=== PATIENT | male | born 1960 | race Caucasian/White ===

== ENCOUNTER 2023-02-14 09:54 | Outpatient (OUT) | payer OTHER, SELFPAY ==
[2023-02-14 10:24] LABS: Basophils Percent Auto 0.5 % (0.2-2.0); Eosinophils Absolute Auto 0.2 10^3/uL (0.0-0.7); Eosinophils Percent Auto 3.4 % (0.9-7.0); Hematocrit 40.6 % (42.0-54.0); Hemoglobin 13.1 g/dL (14.0-18.0); Immature Granulocytes Abs Auto 0.01 10^3/uL (0.00-0.03); Immature Granulocytes Pct Auto 0.2 % (0.0-0.5); Mean Corpuscular HGB Conc 32.3 g/dL (29.9-35.2); Mean Corpuscular Volume 83.7 fL (80.0-94.0); Mean Platelet Volume 9.3 fL (9.5-13.5); Monocytes Absolute Auto 0.3 10^3/uL (0.3-0.8); Monocytes Percent Auto 7.7 % (1.7-12.0); Neutrophils Absolute Auto 2.9 10^3/uL (1.4-6.5); Neutrophils Percent Auto 65.2 % (43.0-75.0); Platelet Count 179 10^3/uL (150-450); Red Blood Count 4.85 10^6/uL (4.70-6.10); Red Cell Distribution Width 15.8 % (11.0-15.0); White Blood Count 4.4 10^3/uL (4.0-11.0)
[2023-02-14 10:41] LABS: Estimated Average Glucose 105 mg/dL; Glycohemoglobin A1C 5.3 % (4.5-6.2)
[2023-02-14 10:56] LABS: Alanine Aminotransferase 25 U/L (16-63); Albumin Level 3.5 g/dL (3.4-5.0); Alkaline Phosphatase 83 U/L (46-116); Anion Gap 8.7; Aspartate Amino Transferase 18 U/L (15-37); BUN Creatinine Ratio 21.2; Bilirubin Total 0.5 mg/dL (0.2-1.0); Calcium 8.5 mg/dL (8.5-10.1); Carbon Dioxide 30.5 mmol/L (21.0-32.0); Chloride 106 mmol/L (98-107); Chol HDL Ratio 2.1; Cholesterol 119 mg/dL (<=200); Estimated GFR (African America >60 (>=60); Estimated GFR (Non-African Ame >60 (>=60); Globulin 3.4 g/dL; Glucose 115 mg/dL (74-106); HDL Cholesterol 57 mg/dL (40-60); LDL Cholesterol Calculated 50.6 mg/dL; Potassium 4.2 mmol/L (3.5-5.1); Sodium 141 mmol/L (136-145); Total Protein 6.9 g/dL (6.4-8.2); Triglycerides 57 mg/dL (<=150); VLDL CHOLESTEROL 11.4 mg/dL
[2023-02-14 11:13] LABS: Prostate Specific Antigen Scrn 1.26 ng/mL (<=4.00)
== END 2023-02-14 09:55 | disposition home or self-care (01) ==
PROVIDERS: PCP Family Medicine; Visit Provider Family Medicine
DX: Z00.00 Encounter for general adult medical examination without abnormal findings (principal); D64.9 Anemia, unspecified; Z79.899 Other long term (current) drug therapy; E11.9 Type 2 diabetes mellitus without complications; Z12.5 Encounter for screening for malignant neoplasm of prostate
CPT/HCPCS: 36415; 80053; 80061; 83036; 85025; G0103

== ENCOUNTER 2024-04-01 07:43 | Outpatient (OUT) | payer OTHER, SELFPAY ==
[2024-04-01 08:36] LABS: Estimated Average Glucose 114 mg/dL; Glycohemoglobin A1C 5.6 % (4.5-6.2)
[2024-04-01 08:50] LABS: Alanine Aminotransferase 34 U/L (16-63); Albumin Level 3.3 g/dL (3.4-5.0); Alkaline Phosphatase 74 U/L (46-116); Anion Gap 10.2; Aspartate Amino Transferase 19 U/L (15-37); Bilirubin Total 0.5 mg/dL (0.2-1.0); Calcium 8.6 mg/dL (8.5-10.1); Carbon Dioxide 30.9 mmol/L (21.0-32.0); Chloride 107 mmol/L (98-107); Chol HDL Ratio 2.1; Cholesterol 106 mg/dL (<=200); Estimated GFR (African America >60 (>=60 mL/min/1.73m^2); Estimated GFR (Non-African Ame >60 (>=60 mL/min/1.73m^2); Free T3 1.59 pg/mL (2.18-3.98); Globulin 3.2 g/dL; Glucose 120 mg/dL (74-106); HDL Cholesterol 51 mg/dL (40-60); LDL Cholesterol Calculated 42.6 mg/dL; Potassium 4.1 mmol/L (3.5-5.1); Sodium 144 mmol/L (136-145); Thyroid Stimulating Hormone 2.645 uIU/mL (0.358-3.740); Total Protein 6.5 g/dL (6.4-8.2); Triglycerides 62 mg/dL (<=150); VLDL CHOLESTEROL 12.4 mg/dL
[2024-04-01 08:55] LABS: Basophils Percent Auto 0.7 % (0.2-2.0); Eosinophils Absolute Auto 0.2 10^3/uL (0.0-0.7); Eosinophils Percent Auto 3.2 % (0.9-7.0); Hematocrit 40.9 % (42.0-54.0); Hemoglobin 13.5 g/dL (14.0-18.0); Immature Granulocytes Abs Auto 0.03 10^3/uL (0.00-0.03); Immature Granulocytes Pct Auto 0.5 % (0.0-0.5); Lymphocytes Absolute Auto 1.2 10^3/uL (1.2-3.8); Mean Corpuscular Hemoglobin 29.5 pg (25.9-34.0); Mean Corpuscular Volume 89.5 fL (80.0-94.0); Mean Platelet Volume 9.9 fL (9.5-13.5); Monocytes Absolute Auto 0.4 10^3/uL (0.3-0.8); Monocytes Percent Auto 6.9 % (1.7-12.0); Neutrophils Absolute Auto 4.1 10^3/uL (1.4-6.5); Neutrophils Percent Auto 68.7 % (43.0-75.0); Platelet Count 181 10^3/uL (150-450); Red Blood Count 4.57 10^6/uL (4.70-6.10); Red Cell Distribution Width 12.9 % (11.0-15.0)
[2024-04-01 08:57] LABS: Prostate Specific Antigen Scrn 1.27 ng/mL (<=4.00)
[2024-04-01 13:40] LABS: Internal Control Within Normal Limits; Occult Blood Positive
== END 2024-04-01 07:44 | disposition home or self-care (01) ==
LOC: LAB 07:44
PROVIDERS: PCP Family Medicine; Visit Provider Family Medicine
DX: Z00.00 Encounter for general adult medical examination without abnormal findings (principal); E03.9 Hypothyroidism, unspecified
CPT/HCPCS: 36415; 80053; 80061; 83036; 84436; 84443; 84481; 85025; G0103; G0328

== ENCOUNTER 2025-02-06 07:39 | Outpatient (OUT) | payer OTHER, SELFPAY ==
--- OUTSIDE RECORDS SUMMARY | 2025-02-06 07:43 | XMS_ITS | CCD ---
Author Organization [facility] Care Team Providers Care Mechanic Name Role Phone Kasia Alicea MD Primary Care Provider [phone] KASIA ALICEA Primary Care Unavailable COMFORT MCLAUGHLIN Attending Unavailable Kasia Alicea MD Primary Care Provider [phone] Kasia Alicea Primary Care Physician [phone] Tiffany Yoder Unavailable Unavailable Sheila Silver Unavailable Unavailable Jewel Nava Attending Unavailable Theodore Jacques Referring Unavailable Jonathan, Theodore Ray Admitting Unavailable Theodore Jacques Attending Unavailable NILLLisa Attending Unavailable Kasia Alicea Referring Unavailable NILLLisa Attending Unavailable NILLLisa Attending Unavailable Brown, Theodore A Referring Unavailable Brown, Theodore A Admitting Unavailable Brown, Theodore A Attending Unavailable Brown, Theodore A Admitting Unavailable Brown, Theodore A Attending Unavailable Brown, Theodore A Referring Unavailable Brown, Theodore A Referring Unavailable Brown, Theodore A Admitting Unavailable Brown, Theodore A Attending Unavailable HOY ., DR PEDROZA Primary Care Unavailable HOY ., DR PEDROZA Admitting Unavailable HOY ., DR PEDROZA Attending Unavailable HOY ., DR PEDROZA Consulting Unavailable ZIEBER, DR ROSAMARIA Pa Consulting Unavailable HOY ., DR PEDROZA Primary Care Unavailable NILL ., DR GONZALEZ Consulting Unavailable NILL ., DR GONZALEZ Admitting Unavailable NILL ., DR GONZALEZ Attending Unavailable HOY ., DR PEDROZA Primary Care Unavailable HOY ., DR PEDROZA Attending Unavailable HOY ., DR PEDROZA Admitting Unavailable HOY ., DR PEDROZA Consulting Unavailable ORI JACQUES Consulting Unavailable NIXON ., DR PEDROZA Primary Care Unavailable NILL ., DR GONZALEZ Consulting Unavailable NILL ., DR GONZALEZ Admitting Unavailable NILL ., DR GONZALEZ Attending Unavailable EDDIE BLANKENSHIP Consulting Unavailable JOLANTA ENGLISH Consulting Unavailable HOY ., DR PEDROZA Primary Care Unavailable HOY ., DR PEDROZA Admitting Unavailable HOY ., DR PEDROZA Attending Unavailable HOY ., DR PEDROZA Consulting Unavailable MAGALY SOTO Consulting Unavailable HOY ., DR PEDROZA Admitting Unavailable HOY ., DR PEDROZA Attending Unavailable HOY ., DR PEDROZA Primary Care Unavailable BRTITANY, MAGALY Admitting Unavailable BRITTANY, MAGALY Attending Unavailable MAGALY SOTO Consulting Unavailable HOY ., DR PEDROZA Primary Care Unavailable HOY ., DR PEDROZA Admitting Unavailable HOY ., DR PEDROZA Attending Unavailable HOY ., DR PEDROZA Consulting Unavailable HOY ., DR PEDROZA Primary Care Unavailable HOY ., DR PEDROZA Primary Care Unavailable HOY ., DR PEDROZA Admitting Unavailable HOY ., DR PEDROZA Attending Unavailable HOY ., DR PEDROZA Consulting Unavailable Kodyy Kasia ROSSI Primary Care Provider [phone] Medications Current Medications Medication Drug Class(es) Dates Sig (Normalized) Sig (Original) ALPRAZolam 0.25 mg oral tablet (2 sources) Benzodiazepine Start: 11-24-2022 take 1 tablet by mouth three times daily ALPRAZolam (Xanax) 0.25 MG tablet TAKE ONE TABLET BY MOUTH THREE TIMES A DAY FOR 4 DAYS 11/24/2022 Active aspirin 81 mg delayed release oral tablet (9 sources) Platelet Aggregation Inhibitor, Nonsteroidal Anti-inflammatory Drug Start: 09-10-2022 End: 10-10-2022 take 2 tablets by mouth once daily aspirin 81 mg Oral EC Tab 162 mg = 2 tab(s), Oral, Daily, X 30 day(s), # 60 tab(s), Refills(s) 0, Pharmacy: [facility]5, 174, cm, 08/26/22 11:25:00 EDT, Height/Length Dosing, 106.6, kg, 08/26/22 11:25:00 EDT, Weight Dosing Start Date: 09/10/22 Stop Date: 10/10/22 Status: Ordered Start: 08-26-2022 take 81 mg by mouth once daily aspirin 81 mg, Oral, Daily, Prophylaxis Start Date: 08/26/22 Status: Ordered Start: 05-28-2022 End: 06-27-2022 take 2 tablets by mouth once daily aspirin 81 mg Oral EC Tab 162 mg = 2 tab(s), Oral, Daily, X 30 day(s), # 60 tab(s), Refills(s) 0, [facility]acy: [facility], 177, cm, 05/06/22 12:05:00 EST, Height/Length Dosing, 106.9, kg, 05/06/22 12:05:00 EST, Weight Dosing Start Date: 05/28/22 Stop Date: 06/27/22 Status: Ordered Start: 05-06-2022 take 1 capsule by mo [facility] once daily aspirin 81 mg oral capsule 81 mg = 1 cap(s), Oral, Daily, Blood Thinner Start Date: 05/06/22 Status: Ordered aspirin 81 MG ch ewable tablet 1 (one) time each day at the same time. [facility] MG EC tablet Take 81 mg by mouth nightly 0 Active celecoxib 100 mg oral capsule (4 sources) Nonsteroidal Anti-inflammatory Drug Start: 09-10-2022 CeleBREX 100 MG capsule Take 100 mg by mouth. 09/10/2022 Active Start: 05-28-2022 take 1 capsule by mo [facility] twice daily as needed for pain CeleBREX 100 mg Cap 100 mg = 1 cap(s), Oral, BID, PRN for pain, # 60 cap(s), Refills(s) 0, [facility]acy: [facility], 177, cm, 05/06/22 12:05:00 EST, Height/Length Dosing, 106.9, kg, 05/06/22 12:05:00 EST, Weight Dosing Start Date: 05/28/22 Status: Ordered cephalexin 500 mg oral capsule (2 sources) Cephalosporin Antibacterial Start: 09-10-2022 End: 09-17-2022 take 1 capsule by mouth every eight hours Keflex 500 mg Cap 500 mg = 1 cap(s), Oral, q8hr, X 7 day(s), # 21 cap(s), Refills(s) 0, [facility], 174, cm, 08/26/22 11:25:00 EDT, Height/Length Dosing, 106.6, kg, 08/26/22 11:25:00 EDT, Weight Dosing Start Date: 09/10/22 Stop Date: 09/17/22 Status: Ordered Start: 05-28-2022 End: 06-04-2022 take 1 capsule by mouth every eight hours Keflex 500 mg Cap 500 mg = 1 cap(s), Oral, q8hr, X 7 day(s), # 21 cap(s), Refills(s) 0, Pharmacy: [facility] 1155, 177, cm, 05/06/22 12:05:00 EST, Height/Length Dosing, 106.9, kg, 05/06/22 12:05:00 EST, Weight Dosing Start Date: 05/28/22 Stop Date: 06/04/22 Status: Ordered chondroitin sulfates 400 mg / glucosamine sulfate 500 mg oral tablet (2 sources) take 1 tablet by mouth in the morning, then take 1 tablet by mouth in the evening, then take 1 tablet by mouth at bedtime glucosamine-chondroitin 500-400 MG tablet Take 1 tablet by mouth in the morning and 1 tablet in the evening and 1 tablet before bedtime. Active ciprofloxacin 500 mg oral tablet (2 sources) Quinolone Antimicrobial Start: 2022 take 1 tablet by mouth every twelve hours ciprofloxacin (Cipro) 500 MG tablet Take 500 mg by mouth every 12 (twelve) hours. 11/24/2022 Active citalopram 20 mg oral tablet (9 sources) Serotonin Reuptake Inhibitor Start: 2018 take 1 tablet by mouth once daily CeleXA 20 mg Tab 20 mg = 1 tab(s), Oral, Daily, Refills(s) 0, Anxiety Start Date: 03/21/19 Status: Ordered diclofenac sodium 75 mg delayed release oral tablet (5 sources) Nonsteroidal Anti-inflammatory Drug Start: 2022 take 1 tablet by mouth twice daily diclofenac sodium 75 mg Oral EC Tab 75 mg = 1 tab(s), Oral, BID, Refills(s) 0, Arthritis Start Date: 06/17/22 Status: Ordered diclofenac (Volt aren) 75 MG EC tablet every 12 (twelve) hours. Active take 75 mg by mouth at bedtime D iclofenac Sodium (VOLTAREN PO) Take 75 mg by mouth in the morning and at bedtime 0 Active docusate sodium 100 mg oral capsule (3 sources) Start: 09-10-2022 take 1 capsule by [facility] twice daily as needed for constipation Colace 100 mg Cap 100 mg = 1 cap(s), Oral, BID, PRN for constipation, # 20 cap(s), Refills(s) 0, Pharmacy: [facility], 174, cm, 08/26/22 11:25:00 EDT, Height/Length Dosing, 106.6, kg, 08/26/22 11:25:00 EDT, Weight Dosing Start Date: 09/10/22 Status: Ordered Start: 05-28-2022 take 1 capsule by mo [facility] twice daily as needed for constipation Colace 100 mg Cap 100 mg = 1 cap(s), Oral, BID, PRN for constipation, # 20 cap(s), Refills(s) 0, Pharmacy: [facility] 1155, 177, cm, 05/06/22 12:05:00 EST, Height/Length Dosing, 106.9, kg, 05/06/22 12:05:00 EST, Weight Dosing Start Date: 05/28/22 Status: Ordered glimepiride 2 mg oral tablet (6 sources) Sulfonylurea Start: 05-28-2022 glimepiride (Amaryl) 2 MG tablet 1 (one) time each day at the same time. 05/28/2022 Active glucosamine hydrochloride 1500 mg oral tablet (4 sources) Start: 03-24-2019 take 1 tablet by mouth twice daily glucosamine hydrochloride 1500 mg oral tablet 1,500 mg, 1 tab(s), Oral, BID, Refill(s) 0, Arthritis Start Date: 03/24/19 Status: Ordered Glucosamine-Chondroi t-Vit C-Mn (GLUCOSAMINE 1500 COMPLEX) CAPS (2 sources) Glucosamine-Miguel dacia it-Vit C-Mn (GLUCOSAMINE 1500 COMPLEX) CAPS Take 1,500 mg by mouth 2 times daily 0 Active hydrALAZINE hydrochloride 100 mg oral tablet (9 sources) Arteriolar Vasodilator Start: 05-06-2022 hydrALAZINE (Apresoline) 100 MG tablet 1 (one) time each day at the same time. 05/06/2022 Active Start: 05-06-2022 take 1 tablet by kimmy three times daily hydrALAZINE 100 mg oral tablet 100 mg = 1 tab(s), Oral, TID, High blood pressure Start Date: 05/06/22 Status: Ordered Start: 05-06-2022 take 1 tablet by kimmy twice daily hydrALAZINE 100 mg oral tablet 100 mg = 1 tab(s), Oral, BID, High blood pressure Start Date: 05/06/22 Status: Ordered take 1 tablet by kimmy th twice daily hydrALAZINE (APRESOLINE) 50 MG tablet Take 50 mg by mouth 2 times daily 0 Active ibuprofen 200 mg oral capsule (2 sources) Nonsteroidal Anti-inflammatory Drug take 1 capsule by mouth every six hours ibuprofen (ADVIL;MOTRIN) 200 MG CAPS Take 1 capsule by mouth every 6 hours 0 Active levoFLOXacin 500 mg oral tablet (1 source) Quinolone Antimicrobial Start: End: take 1 tablet by mouth once daily levoFLOXacin (LEVAQUIN) 500 MG tablet Take 1 tablet by mouth daily for 10 days 10 tablet 0 10/02/2020 10/12/2020 Active metFORMIN hydrochloride 500 mg oral tablet (7 sources) Biguanide Start: take 1 tablet by mouth twice daily metformin 500 mg Tab 500 mg = 1 tab(s), Oral, BID, Refills(s) 0, Blood glucose Start Date: 05/09/22 Status: Ordered Start: 05-09-2022 metFORMIN (Glu cophage) 500 MG tablet every 12 (twelve) hours. 05/09/2022 Active take 1 tablet by kimmy th twice daily at mealtime metFORMIN (GLUCOPHAGE) 500 MG tablet Take 500 mg by mouth 2 times daily (with meals) 0 Active Multi Vitamin+ (5 sources) Start: 03-24-2019 take 1 tablet by mouth once daily Multi Vitamin+ tab, Oral, Daily, Refill(s) 0, Prophylaxis Start Date: 03/24/19 Status: Ordered Multiple Vitamins-Minerals (MENS 50+ ADVANCED PO) (2 sources) take 1 tablet by mouth once daily in the morning Multiple Vitamins-Minerals (MENS 50+ ADVANCED PO) Take 1 tablet by mouth every morning 0 Active Multiple Vitamins-Minerals (Mens 50+ Advanced) capsule (2 sources) Multiple Vitamins-Minerals (Mens 50+ Advanced) capsule 1 capsule 1 (one) time each day at the same time Active [place] 3-6-9 Fatty Acids ([place] 3-6-9 Complex) capsule (2 sources) take 1 capsule by mouth every twelve hours [place] 3-6-9 Fatty Acids ([place] 3-6-9 Complex) capsule 1 capsule every 12 (twelve) hours Active ondansetron 4 mg oral tablet (4 sources) Serotonin-3 Receptor Antagonist Start: 05-29-2022 take 1 tablet by mouth every eight hours as needed for nausea Zofran ODT 4 mg Tab 4 mg = 1 tab(s), Oral, q8hr, PRN Nausea/Vomiting, # 30 tab(s), Refills(s) 0, Pharmacy: [facility] 1155, 177, cm, 05/06/22 12:05:00 EST, Height/Length Dosing, 107.4, kg, 05/29/22 6:31:00 EST, Weight Dosing Start Date: 05/29/22 Status: Ordered Start: 11-17-2021 End: 11-22-2021 take 1 tablet by mouth every eight hours as needed for nausea ondansetron (ZOFRAN) 4 MG tablet Take 1 tablet by mouth every 8 hours as needed for Nausea or Vomiting 12 tablet 0 11/17/2021 11/22/2021 Active Start: 11-17-2021 End: 11-17-2021 ondansetron (ZOFRAN) injecti on 4 mg ramipril 10 mg oral capsule (9 sources) Angiotensin Converting Enzyme Inhibitor Start: 03-21-2019 take 1 capsule by mouth twice daily Altace 10 mg Cap 10 mg = 1 cap(s), Oral, BID, Refills(s) 0, High blood pressure Start Date: 03/21/19 Status: Ordered take 1 capsule by mo [facility] every twelve hours ramipril (Altace) 10 MG capsule 1 capsul e every 12 (twelve) hours. Active simvastatin 20 mg oral tablet (7 sources) HMG-CoA Reductase Inhibitor Start: 05-09-2022 take 1 tablet by mouth once daily at bedtime simvastatin 20 mg Tab 20 mg = 1 tab(s), Oral, Once a day (at bedtime), Refills(s) 0, High cholesterol Start Date: 05/09/22 Status: Ordered 24 hr venlafaxine 150 mg extended release oral tablet (9 sources) Serotonin and Norepinephrine Reuptake Inhibitor Start: 08-26-2022 take 150 mg by mouth once daily venlafaxine 150 mg, Oral, Daily, Anxiety Start Date: 08/26/22 Status: Ordered Start: 05-29-2022 take 1 capsule by mo ut once daily venlafaxine 75 mg Cap-ER 75 mg = 1 cap(s), Oral, Daily, # 30 cap(s), Refills(s) 0, [facility]acy: [facility], 177, cm, 05/06/22 12:05:00 EST, Height/Length Dosing, 107.4, kg, 05/29/22 6:31:00 EST, Weight Dosing Start Date: 05/29/22 Status: Ordered Start: 03-21-2019 take 1 capsule by mo uth once daily Effexor XR 150 mg Cap-ER 150 mg = 1 cap(s), Oral, Daily, Refills(s) 0, Other (see comment) Start Date: 03/21/19 Status: Ordered take 2 capsules by m out once daily in the morning venlafaxine (EFFEXOR XR) 75 MG extended release capsule Take 150 mg by mouth every morning 0 Active Completed/Discontinued Medications Medication Drug Class(es) Dates Sig (Normalized) Sig (Original) acetaminophen 325 mg / oxyCODONE hydrochloride 5 mg oral tablet (3 sources) Opioid Agonist Start: 09-10-2022 Percocet 5 mg-325 mg oral tablet See Instructions, 40 tab(s), Refill(s) 0, 1-2 tab(s) Oral q4hr, [facility], 174, cm, 08/26/22 11:25:00 EDT, Height/Length Dosing, 106.6, kg, 08/26/22 11:25:00 EDT, Weight Dosing Start Date: 09/10/22 Status: Ordered Start: 05-28-2022 Percocet 5 mg- 325 mg oral tablet See Instructions, 50 tab(s), Refill(s) 0, 1-2 tab(s) Oral q4hr, [facility], 177, cm, 05/06/22 12:05:00 EST, Height/Length Dosing, 106.9, kg, 05/06/22 12:05:00 EST, Weight Dosing Start Date: 05/28/22 Status: Ordered atropine sulfate 0.025 mg / diphenoxylate hydrochloride 2.5 mg oral tablet (2 sources) Anticholinergic, Cholinergic Muscarinic Antagonist, Antidiarrheal Start: 11-17-2021 End: 11-17-2021 diphenoxylate-atropine (LOMOTIL) 2.5-0.025 MG per tablet 1 tablet Start: 11-17-2021 End: 11-22-2021 take 1 tablet by mouth three times daily as needed for diarrhea diphenoxylate-atropine (LOMOTIL) 2.5-0.025 MG per tablet Indications: Gastroenteritis , Acute renal insufficiency Take 1 tablet by mouth 3 times daily as needed for Diarrhea for up to 5 days. 15 tablet 0 11/17/2021 11/22/2021 Active cloNIDine hydrochloride 0.2 mg oral tablet (10 sources) Central alpha-2 Adrenergic Agonist Start: 08-26-2022 End: 09-11-2022 Catapres 0.2 mg Tab 0.2 mg = 1 tab(s), Tab, Oral, Start date 09/11/22 8:00:00 EDT, 09/10/22 13:19:00 EDT Start Date: 09/11/22 Stop Date: 09/11/22 Status: Completed Start: 05-29-2022 End: 05-29-2022 cloNIDine 0.1 mg tab 0.2 mg = 2 tab(s), Tab, Oral, Start date 05/29/22 9:00:00 EST, 05/28/22 9:39:00 EST Start Date: 05/29/22 Stop Date: 05/29/22 Status: Completed Start: 05-09-2022 take 2 tablets by [facility] twice daily cloNIDine 0.1 mg tab 0.2 mg = 2 tab(s), Oral, BID, Refills(s) 0, High blood pressure Start Date: 05/09/22 Status: Ordered cloNIDine (Catap res) 0.2 MG tablet every 8 (eight) hours. Active take 2 tablets by [facility] once daily cloNIDine (CATAPRES) 0.1 MG tablet Take 0.2 mg by mouth daily 0 Active take 1 tablet by mouth at bedtim e cloNIDine (CATAPRES) 0.1 MG tablet Take 0.1 mg by mouth at bedtime 0 Active famotidine (PEPCID) 20 mg in sodium chloride (PF) 10 mL injection (1 source) Start: 11-17-2021 End: 11-17-2021 famotidine (PEPCID) 20 mg in sodium chloride (PF) 10 mL injection fluconazole 150 mg oral tablet (2 sources) Azole Antifungal End: 06-05-2022 fluconazole (DIFLUCAN) 150 MG tablet Take 75 mg by mouth 2 times daily 0 11/17/2021 Discontinued (LIST CLEANUP) lisinopril 20 mg oral tablet (2 sources) Angiotensin Converting Enzyme Inhibitor Start: 09-11-2022 End: 09-11-2022 lisinopril 20 mg Tab 40 mg = 2 tab(s), Tab, Oral, Start date 09/11/22 9:00:00 EDT, 09/10/22 13:19:00 EDT Start Date: 09/11/22 Stop Date: 09/11/22 Status: Completed Start: 05-29-2022 End: 05-29-2022 lisinopril 20 mg Tab 40 mg = 2 tab(s), Tab, Oral, Start date 05/29/22 9:00:00 EST, 05/28/22 9:40:00 EST Start Date: 05/29/22 Stop Date: 05/29/22 Status: Completed 24 hr metoprolol succinate 50 mg extended release oral tablet (15 sources) beta-Adrenergic Keith Start: 09-11-2022 End: 09-11-2022 Toprol XL 50 mg Tab-ER 100 mg = 2 tab(s), Tab-ER, Oral, Start date 09/11/22 9:00:00 EDT, 09/10/22 13:19:00 EDT Start Date: 09/11/22 Stop Date: 09/11/22 Status: Completed Start: 09-10-2022 End: 09-10-2022 Toprol XL 50 mg Tab-ER 100 m g = 2 tab(s), Tab-ER, Oral, Start date 09/10/22 21:00:00 EDT, 09/10/22 13:19:00 EDT Start Date: 09/10/22 Stop Date: 09/10/22 Status: Completed Start: 05-29-2022 End: 05-29-2022 Toprol XL 50 mg Tab-ER 100 m g = 2 tab(s), Tab-ER, Oral, Start date 05/29/22 9:00:00 EST, 05/28/22 9:39:00 EST Start Date: 05/29/22 Stop Date: 05/29/22 Status: Completed Start: 03-21-2019 End: 05-28-2022 take 2 tablets by mouth twice daily Toprol XL 50 mg Tab-ER 100 mg = 2 tab(s), Oral, BID, Refills(s) 0, High blood pressure Start Date: 03/21/19 Status: Ordered Start: 03-21-2019 [facility] Toprol [facility] 50 mg Tab-ER 50 mg = 1 tab(s), Oral, BID, Refills(s) 0, High blood pressure Start Date: 03/21/19 Status: Ordered take 2 tablets by mo [facility] every twelve hours metoprolol succinate XL (Toprol XL) 50 MG 24 hr tablet 2 capsules every 12 (twelve) hours. Active take 2 tablets by mo [facility] once daily before breakfast metoprolol succinate (TOPROL XL) 50 MG extended release tablet Take 100 mg by mouth every morning (before breakfast) 0 Active take 1 tablet by mouth once kay y metoprolol succinate (TOPROL XL) 50 MG extended release tablet Take 50 mg by mouth nightly 0 Active Multiple Vitamin (multivitamin) tablet (2 sources) End: 03-01-2024 take 1 tablet by mouth in the morning Multiple Vitamin (multivitamin) tablet Take 1 tablet by mouth in the morning. 03/01/2024 Discontinued (Therapy completed) Sodium Chloride (2 sources) Start: 11-17-2021 End: 11-17-2021 0.9 % sodium chloride bolus Start: 11-17-2021 End: 11-17-2021 0.9 % sodium chloride bolus Problems Active Problems Problem Classification Problem Date Documented Date Episodic/Chronic Acute cerebrovascular disease (5 sources) Cerebrovascular accident 05-06-2022 Chronic Anxiety disorders (10 sources) Anxiety; Translations: [Anxiety disorder] Onset: 05-28-2022 05-06-2022 Chronic Cataract (4 sources) Cataract 05-09-2022 Chronic Congestive heart failure; nonhypertensive (1 source) Unspecified diastolic (congestive) heart failure; Translations: [UNSPECIFIED DIASTOLIC HEART FAILURE] Onset: 12-10-2021 Chronic Diabetes mellitus without complication (4 sources) Diabetes mellitus 05-09-2022 Chronic Diabetes mellitus without complication (6 sources) Prediabetes; Translations: [Prediabetes] Onset: 07-18-2022 05-06-2022 Episodic Essential hypertension (6 sources) Hypertensive disorder; Translations: [Essential (primary) hypertension] Onset: 07-18-2022 01-28-2019 Chronic Genitourinary symptoms and ill-defined conditions (20 sources) Dysuria; Translations: [Increased frequency of urination] Onset: 07-18-2022 05-06-2022 Episodic Heart valve disorders (1 source) Nonrheumatic aortic (valve) insufficiency; Translations: [NONRHEUMATIC AORTIC INSUFFICIENCY] Onset: 12-12-2021 Chronic Hyperplasia of prostate (11 sources) Benign prostatic hypertrophy with outflow obstruction; Translations: [Benign prostatic hypertrophy without outflow obstruction] Onset: 05-28-2022 05-06-2022 Chronic Hypertension with complications and secondary hypertension (1 source) Hypertensive heart disease with heart failure; Translations: [HTN HEART DISEASE W/HEART FAIL] Onset: 12-10-2021 Chronic Mood disorders (1 source) Depressive disorder; Translations: [Depression, unspecified] Onset: 05-28-2022 Chronic Noninfectious gastroenteritis (1 source) Gastroenteritis; Translations: [Noninfective gastroenteritis and colitis, unspecified] Episodic Osteoarthritis (2 sources) Osteoarthritis of knee; Translations: [Unilateral primary osteoarthritis, left knee] Onset: 05-28-2022 Chronic Other aftercare (1 source) [employer] (current) use of aspirin; Translations: [HALF-WAY CURRENT USE OF ASPIRIN] Onset: 07-18-2022 Episodic Other aftercare (1 source) [facility] (current) use of oral hypoglycemic drugs; Translations: [HALF-WAY USE ORAL HYPOGLYCEMIC DX] Onset: 07-18-2022 Episodic Other circulatory disease (2 sources) History of transient ischemic attack 05-09-2022 Episodic Other circulatory disease (1 source) Personal history of transient ischemic attack (TIA), and cerebral infarction without residual deficits; Translations: [PERS HX TIA AND CI NO RESID DEFICIT] Onset: 07-18-2022 Episodic Other diseases of kidney and ureters (1 source) Acute renal insufficiency; Translations: [Disorder of kidney and ureter, unspecified] Episodic Other non-epithelial cancer of skin (4 sources) Basal cell carcinoma of face 05-09-2022 Episodic Other nutritional; endocrine; and metabolic disorders (3 sources) Body mass index 30+ - obesity 06-17-2022 Chronic Other screening for suspected conditions (not mental disorders or infectious disease) (15 sources) Raised prostate specific antigen; Translations: [Hypotestosteronism] Onset: 03-01-2022 05-06-2022 Episodic Pneumonia (except that caused by tuberculosis or sexually transmitted disease) (1 source) Infective pneumonia; Translations: [Pneumonia, unspecified organism] Episodic Residual codes; unclassified (5 sources) H/O: anticoagulant therapy 01-28-2019 Episodic Residual codes; unclassified (1 source) Procedure carried out on subject; Translations: [Encounter for prophylactic measures, unspecified] Onset: 05-28-2022 Episodic Residual codes; unclassified (4 sources) Edema of lower extremity 05-09-2022 Episodic Residual codes; unclassified (4 sources) Localized edema; Translations: [LOCALIZED EDEMA] Onset: 10-07-2022 Episodic Retinal detachments; defects; vascular occlusion; and retinopathy (8 sources) Degenerative disorder of macula ; Translations: [Hypertensive retinopathy] 05-09-2022 Chronic Spondylosis; intervertebral disc disorders; other back problems (4 sources) Sciatica 05-09-2022 Episodic Unclassified (1 source) History of COVID-19; Translations: [History of COVID-19] Unclassified (3 sources) Patient encounter status 06-17-2022 Unclassified (1 source) CONTACT W/AND (SUSP) EXPOS COVID-19; Translations: [CONTACT W/AND (SUSP) EXPOS COVID-19] Onset: 07-14-2022 Urinary tract infections (4 sources) Chronic cystitis 05-09-2022 Chronic Urinary tract infections (6 sources) Acute cystitis; Translations: [Acute cystitis with hematuria] Episodic Past or Other Problems Problem Classification Problem Date Documented Date Episodic/Chronic Abdominal pain (4 sources) Unspecified abdominal pain; Translations: [UNSPECIFIED ABDOMINAL PAIN] Onset: 11-21-2021 Episodic Acute and unspecified renal failure (1 source) Acute kidney failure, unspecified; Translations: [ACUTE KIDNEY FAILURE UNSPECIFIED] Onset: 11-25-2021 Episodic Nausea and vomiting (1 source) Vomiting, unspecified; Translations: [VOMITING UNSPECIFIED] Onset: 11-25-2021 Episodic Other circulatory disease (1 source) Hypotension, unspecified; Translations: [HYPOTENSION UNSPECIFIED] Onset: 12-12-2021 Episodic Other connective tissue disease (1 source) Synovial cyst of popliteal space [Wang], left knee; Translations: [SYNOVIAL CYST POP SPACE LEFT KNEE] Onset: 06-11-2022 Episodic Other connective tissue disease (5 sources) Other specified soft tissue disorders; Translations: [OTHER SPEC SOFT TISSUE DISORDERS] Onset: 12-05-2021 Episodic Other non-traumatic joint disorders (2 sources) Pain in right knee; Translations: [Pain in joint, lower leg] 03-01-2024 Episodic Residual codes; unclassified (1 source) Other specified postprocedural states; Translations: [OTH SPECIFIED POSTPROCEDURAL STATES] Onset: 06-11-2022 Episodic Residual codes; unclassified (4 sources) Edema, unspecified; Translations: [EDEMA UNSPECIFIED] Onset: 12-09-2021 Episodic Results Test Name Value Interpretation Reference Range Facil ity XR Knee - left 3 [facility] Result: Three views, bilateral PA weight-bearing/sunr ise/lateral bilateral knee, taken today and saved to the permanent medical record are reviewed. Prosthesis is unchanged in position and alignment. No signs of prosthetic wear or loosening. No periprosthetic fractures. [facility] SeptRx XR Knee - right 3 [facility] Result: Three views, bilateral PA weight-bearing/sunr ise/lateral bilateral knee, taken today and saved to the permanent medical record are reviewed. Prosthesis is unchanged in position and alignment. No signs of prosthetic wear or loosening. No periprosthetic fractures. [facility] No Panel Informationon 03-01 Radiology Study observation (narrative) [facility] US JUHI DOP LEG RTon 10-08-19 US JUHI DOP LEG RT Ultrasound venous duplex scan right lower extremity CLINICAL: Swelling of the right leg] and rash behind the knee. TECHNIQUE: Ziegler-scale, color-flow, and Spectral Doppler examination of the right lower extremity were performed with and without provocative maneuvers. FINDINGS: Sonographic examination of the right lower extremity deep venous system to include the common femoral, superficial femoral and popliteal veins, demonstrates normal compressibility, color-flow, respiratory variation, and augmentation. The origin and proximal segment of the greater saphenous vein also demonstrates normal compression and color-flow. There is normal color-flow in the peroneal, posterior tibial, and anterior tibial veins. IMPRESSION: 1. No deep venous thrombosis of the right lower extremity. 2. There is evidence of edema in the soft tissues of the calf and ankle. Electronically authenticated by: ORI JACQUES Date: 2022-10-07 12:51 Normal [facility] IntraOperative Documentson 0 09-15-2022 IntraOperative Documents [id number] Normal [facility] Operative Reporton 3 Operative Report Patient: IRWIN MOORE Age: 62 years Sex: Male : 1960 Associated Diagnoses: None Author: Ag Choi Jr, DO Postoperative Information Date/ Time: 09/10/2022 11:50:00 Preoperative Diagnosis: Acute postoperative pain.. Postoperative Diagnosis: Acute postoperative pain. Procedure: adductor canal nerve block per surgeon request for post-op pain management. Anesthesia Method: Local, Monitored anesthesia care. Performed by: Ag Choi Jr, DO. Medications: Midazolam 2mg. Complications: None. Notes: The patient was interviewed and examined prior to the planned operation. Anesthesia options were discussed including adductor canal nerve block for postoperative analgesia. This discussion included a description of the procedure, risks and benefits, as well as alternatives to the block. The patients questions were addressed and the patient elected to proceed with the adductor canal nerve block. The patient was placed in the supine position and monitored with continuous pulse oximetry, non-invasive blood pressure, and electrocardiography . The upper thigh was prepped with ChloraPrep and sterilely draped. Anatomical landmarks were identified with ultrasonographic guidance. A 2 x 22 gauge Stimuplex needle was inserted without pain or paresthesias. . Following a negative attempted aspiration for blood, Ropivacaine 0.5% was slowly injected with to a total volume of _20_ cc. Periodic negative attempts at aspiration for blood were made as the local was injected. No pain or paresthesias were elicited with injection of the anesthetic. The patient tolerated the procedure well. The patient was then induced for general anesthesia and preparations for the proposed operation continued.. Normal [facility] Comment on above: Result Comment: Elec tronically Signed By: Ag Choi Jr, DO\.br\Date and Time Signed: 09/13/22 09:10 EDT Progress Note-Physicianon Progress Note-Physician Patient: IRWIN MOORE Age: 62 years Sex: Male : 1960 Associated Diagnoses: None Author: Ag Choi Jr, DO Preoperative Information Time patient last ate or drank:=== (npo 8 hours) Anesthesia history: Patient history: No prior anesthesia problems. Re-evaluation prior to induction: Completed, Initial evaluation reviewed. Review of Systems Respiratory: No shortness of breath. Cardiovascular: No chest pain. Hematology/Lymphati cs: No bruising tendency, No bleeding tendency. Health Status Allergies: Allergic Reactions (All) No Known Allergies Current medications: (Selected) Inpatient Medications Ordered Lactated Ringers IV Kelin 1000 mL 1,000 mL: 1,000 mL, IV, 150 mL/hr, Routine, Start date 09/10/22 10:30:00 EDT, 6.7 hour(s), Total volume (mL): 1,000, 106.6 kg, 2.27, m2 cefazolin additive + Sodium Chloride 0.9% intravenous solution 50 mL: 2 gram = 1 EA, Powder-Inj, IV Piggyback, PREOP, Routine, Start date 09/10/22 10:30:00 EDT, 100 mL/hr, Infuse over 30 minute(s) tranexamic acid additive + premix generic diluent 100 mL: 1,000 mg = 100 mL, Soln-IV, IV Piggyback, Once, Stop date 09/10/22 11:00:00 EDT, Routine, Start date 09/10/22 11:00:00 EDT, 200 mL/hr, Infuse over 30 minute(s) Documented Medications Documented Altace 10 mg Cap: 10 mg = 1 cap(s), Oral, BID, Refills(s) 0, High blood pressure CeleXA 20 mg Tab: 20 mg = 1 tab(s), Oral, Daily, Refills(s) 0, Anxiety Multi Vitamin+: tab, Oral, Daily, Refill(s) 0, Prophylaxis Toprol XL 50 mg Tab-ER: 100 mg = 2 tab(s), Oral, BID, Refills(s) 0, High blood pressure aspirin: 81 mg, Oral, Daily, Prophylaxis clonidine: 0.2 mg, Oral, TID, High blood pressure diclofenac sodium 75 mg Oral EC Tab: 75 mg = 1 tab(s), Oral, BID, Refills(s) 0, Arthritis glimepiride 2 mg Tab: 2 mg = 1 tab(s), Oral, Daily, Blood glucose hydrALAZINE 100 mg oral tablet: 100 mg = 1 tab(s), Oral, TID, High blood pressure metformin 500 mg Tab: 500 mg = 1 tab(s), Oral, BID, Refills(s) 0, Blood glucose simvastatin 20 mg Tab: 20 mg = 1 tab(s), Oral, Once a day (at bedtime), Refills(s) 0, High cholesterol venlafaxine: 150 mg, Oral, Daily, Anxiety Problem list: All Problems Basal cell carcinoma, face / SNOMED CT 4103185782 / Confirmed BPH (benign prostatic hyperplasia) / SNOMED CT 059384939 / Confirmed BMI 34.0-34.9,adult / SNOMED CT 298754948 / Confirmed Cataract / SNOMED CT 314346127 / Confirmed Chronic cystitis / SNOMED CT 09463024 / Confirmed Macular degeneration / SNOMED CT 1251297913 / Confirmed Diabetes / SNOMED CT 751596912 / Confirmed Lower extremity edema / SNOMED CT 517046586 / Confirmed HTN (hypertension) / SNOMED CT 2340745898 / Confirmed Hypertensive retinopathy / SNOMED CT 92906831 / Confirmed Testosterone deficiency / SNOMED CT 3065045228 / Confirmed Anxiety and depression / SNOMED CT 170853412 / Confirmed Screening for malignant neoplasm of colon / SNOMED CT 969208239 / Confirmed Borderline diabetes / SNOMED CT 7786488715 / Confirmed Sciatica / SNOMED CT 98841162 / Confirmed Resolved: Anxiety / SNOMED CT 42528577 Resolved: BPH with urinary obstruction / SNOMED CT 1744693315 Resolved: Stroke / SNOMED CT 894471572 Resolved: Dysuria / SNOMED CT 32067473 Resolved: Hx of mcc use of blood thinners / SNOMED CT 746241604 Resolved: Frequent urination / SNOMED CT 857677090 Resolved: Nocturia / SNOMED CT 713318628 Resolved: Elevated PSA / SNOMED CT 7099367122 Resolved: Urinary retention / SNOMED CT 511083246 Resolved: Urinary tract infection / SNOMED CT 492298864 Canceled: History of TIA (transient ischemic attack) / SNOMED CT 9487470158 pt and his deny history of TIA Canceled: Microhematuria / SNOMED CT 486963236 Canceled: Transient ischemic attack / SNOMED CT 057012517 Histories Past Medical History: Resolved BPH with urinary obstruction (5708838245): Resolved. Elevated PSA (2121790288): Resolved. Hx of salvage determiner use of blood thinners (314520766): Resolved. Frequent urination (737345861): Resolved. Nocturia (056206384): Resolved. Dysuria (77117041): Resolved. Urinary retention (137331228): Resolved. Anxiety (10707609): Resolved. Stroke (816758710): Resolved. Urinary tract infection (846759371): Resolved. Family History: Hypertension Mother Heart disease Father Mother Diabetes mellitus type 2 Mother Primary malignant neoplasm of prostate Father Procedure history: Total knee arthroplasty ([id number]) on 05/28/2022 at 62 Years. TRUS w/Bx ([id number]) on 07/21/2014 at 54 Years. Social History Social & Psychosocial Habits Alcohol 03/24/2019 Risk Assessment: Denies Alcohol Use Substance Abuse 05/06/2022 Risk Assessment: Denies Substance Abuse Tobacco 03/24/2019 Risk Assessment: Denies Tobacco Use 06/17/2022 Tobacco Use: Never (less than 100 in l Smokeless tobacco use: Smokeless tobacco user wi Type: Oral Started at age: 23.0 Years Smoking Cessa (more content not included)... Normal [facility] Comment on above: Result Comment: Elec tronically Signed By: Ag Choi Jr, DO\.br\Date and Time Signed: 09/13/22 09:10 EDT Progress Note-Physician Patient: IRWIN MOORE Age: 62 years Sex: Male : 1960 Associated Diagnoses: None Author: Ag Choi Jr, DO Postoperative Information Postoperative disposition: Postoperative disposition: To PACU. Optimetrix number: Optimetrix number [id number]. Anesthetic utilized: General. Health Status Allergies: Allergic Reactions (Selected) No Known Allergies Physical Examination VS/Measurements Pain Assessment: Controlled. General: Awake, Alert, Appropriate. Respiratory: Adequate air exchange. Cardiovascular: Stable, Normal peripheral perfusion. Neurological: Normal sensory function, Normal motor function. Assessment Anesthetic outcome No anesthetic complications noted. Adequate pain relief. able to void without difficulty, able to ambulate with assist, tolerating PO intake, no N/V. Review / Management Condition: Stable. Plan Transfer/Discharge: Transfer/Discharge Discharge when meets criteria ( From PACU to floor ). Normal [facility] Comment on above: Result Comment: Elec tronically Signed By: Jimbo Titus DO, Ag Ray\.edison\Date and Time Signed: 09/13/22 09:10 EDT Coding Summary.on 09-12-2022 Coding Summary. CD:[id number] bWw+PGhlYWQ+ZN6ECEH fZ26zlEMhpL9oY9LAJB lOSywgQVBQTElOSyIgb yKkKA7ysVIoNZGp IC8+RG2kVTLsSkdrgTZ ne8B6mMY7P34mcx4uHQ egmAD6EYFcCcJhdyanv 4atcBy0EFfiWpcjGjQd ILOarR41FKF5pH32Pm8 8pXXklVDtd3nkbQv4Gt HjMDZdNMD1xLeoXOktq 8TiRXUgY69kfFFrj1T5 IGNvbGxhcHNlOyBlbXB 4xF4nZOolhfurk9ttbd kgUcb6mc67yEPub2P3n TU3I3UnryC6GBKlpRRh OedkaGSOhV2swjbfk9n xbfapAwJdHXItSWc6EX y1GVZklXmpYqScHQ80V ZG9NCKavuGuL2LkQKFs eEvhEkE2x1Z9Kj6YL2M ZWoywB4FFRZJMOKygbU Q+AG07tg77O8TgDfxaC ik1QRCwMWG0fUA1dJ9w JIMkNInrb5F5mYX7T9K vsuDrtb5cg2fdFHJsUI ktT83tkOFzx0C3FWSbd UX6RRHgdPdlRqNyjB62 Oyc+AGJisQrzi0QqGja ui0agq0zqbEm0FhguJT AmodRljDgbRVM9i7PkR c5hWUNprUW1oSY6mO2q HzAlUrS0SItbL618ThC mgGIeMidwE95zF4MzzX A+PSPbSqf7BBTcmVrdF S7tJ7HpYHOeidopuNQv eBqqJZ7kEQQokelaPSA uyX4pKBAtD2o0KcOuKj N5SNbhB3QlEHFxnkuzT v31gJ8oTtNdFrI1KFij G2RgtdC2FAPcgBMaHOu mWIB7T76df8Q3RNRlWT GtUNE9iKD5vH4tyYzyv jogbGVmdDsgdmVydGlj IFufKRfaH373PNUrcUm nPkNvZGluZyBEYXRlOi AgMDMvMzEvMjAyMzwvd GQ+KWDvWIJ7jCdoMSVn hWLlJLtiWu3ogZpbqGz lBO5aSIQvyfnoKUMfmY 7uFDUyoKPdbMywDJ3jU GZktkacz882EwTbSJP4 GNAiuLUnU5ZdoH3eUuB sKWAxPMThI9LciFWoFO hxK284TDycUpZ6EHBns dEfS5UyJFMzeTsePkQ9 c8A1In5Em4DamrtmK3Q wpUKsBaNkEcwsIIi6N9 RkPjwvdHI+VV87IHRsP M97XKb0YJK8wLyvSMgz CWFgV2AhtY4zDzMjUIM kZGRkOyc+PHRhYmxlIH dpZHRoPScxMDAlJyBzd FtxUI5gOh7sSMHdWAKr qXklaJFoPiJxu4nmYSV tOVmtNL1bgSnlY5RheH V6XXBaq6v3Nr07F98pG 3JvdXA+SIQbaYI3zFX9 xE8oVqZuDqE1EIooV88 2DvOvsGGcFfekz0gue3 sxwAr8AoM0QNDgvkOqm IgvECN8q6VmUk21B45b IHdpZHRoPSIxNSUiIHZ uoCznjk2kpT4xBw1+PG DpkTQ6xDW9eF5wPwCmU fJ4RXcpS499TsQuzKBd Jbwvh8ahk7rpoEx3AcT aHGYkaoYohTyhNNQ0v8 SuLm15V4HhpJeuq0JpQ mf0yl55uUTvq4I2sEB0 V3DuJUTlorplvYFwnIg cSE4tDKUuxqppZDJiyR 7fTNYqR7e7GmBhHgY9K XnzV4ZkgsI8WFNneOCl KILsbYKHsK8afsuzy9c cazveHiNaKIFiONg9SF s3IPQmmPtnGeLjEHC3H rI6SUS7sZKesH1hnWbn myapiV5xBfz+ZVH8yZB yeZRFMW7zGjfewZI+PH SuCLN8nRflOMqiHGTab D3yHJXcI1z1KjExDhR0 KGrlY7DjlsK9WYFtuXN hFNGigTSCuD2lcjqhe0 dwgntrXhHoQMNbQBq7C Ij7NDYmoCfaFsGyNLL0 ZwQ5WGL4oKZeyA0abBw ldqtniA5wYue+QmlydG ljVQX4JFi1P4NaEwy9G WXpmQisWE9oqAOhZHkx Ca2ruVjpiXwqVX6zDKT iuvhwj756UaDvk5wkJJ FiyMWfFNdkAGK9N27dh 3D1GNKwEOGwYNO1vVE3 nD1meUtxcwzohKWmpVi gdmVydGljYWwtYWxpZ2 93OZPyfYaiNhKyFDu8B 1QeWvg2BASdzLnhNA2h xZHaVBewEs3omNhjnPa lNL8vZOGkayvbw642Cl Abb3alFMNmqVOkIUueF HA0M57cr9Q4VYUdJCLb YGK9rBK1oT1urQudveg gbGVmdDsgdmVydGljYW jqLFksA964RXCikDnaE wDmqNl7Y2SzWrm6MPZg eFwfIB8kiNXoWHkhIm1 diMvmbSubEW7zFFRckz thq759EzQzx8crDNWfu XWtQYieNEZ1D38ei1F9 XWBuJVDkXLN1pIU5yZ2 hbGlnbjogbGVmdDsgdm TnbPqiFAmjVSieH756C HRvcDsnPlBhdGllbnQg WJeiUNb3B6FoVtrynBQ +LP03AHUgDJ49jKQwkC Wug4wytIh5NyQuVEFzA JZ1gZgmVEtrd6VoTVWn Z70gdNRnp5Q5ZRXuqEj sbGTdNpErgRV3vW8aSV kbduxdl1tfmbfoEhdya 2gdvp58gF24C39pZFcj ZHRoPSIzMCUiIHZhbGl ppy0wtV3dYu6+PGNvbC P1fQH0fP3uHWBqScO4A GxiS449OoMboQHsIluo a5xik8cnfCj6LxW0ZVL jluWesSthEKE7f5HjJo 70H75qWWzyQPUvASXsW DZgNSKuoByquk2ndT3u Ii8+QPQzbUM6kCL9fZ2 pDwWiIhK4IDzpJ520Za IbcMWyPfroT44hJ9Vdn XA+YDFkPpz6ACDoqJur QH0erPJlRDetUe4dAEU 7SdOeFjJqPLldX1BdMP UrcvyxdbigqBS4QMUxE YGnyS66Oe9heSrcLBSw yACNfK0ibcxke2xgcqi lIhUqOKIhCNi0DVy2GT JbjXuhIxRtJBQ7KyM8D AC7qAArvT8vkJxvekff qP3qF5VzBDMoxrupQv0 3jC8gDpCpMmY1ELccWn c+IB0BOTBJUGZRZBCTL EQgQTwvdGQ+PHRkIHN0 tUtqACoqILVogP2pOXD aI1v3DiHlLwS7RMfsH1 WhOQCfclizPc83lX2cP cXhKmU2XApoJ8PelyG6 RTMpnVRyNIdtYFA8K73 ux4U8ILXoUVThZPK5zG M4pY7shBmltzozoIEph DsgdmVydGljYWwtYWxp X207OYQymWyyFgHyAzJ oXnN3DTr1K8XfHji5DX SjoXgtSA7vrKCpOLmgG t4brYmweHifIL3vUQOf redpYRCvkJ1pLLQguNJ smTqeSK8mUZEmlmplh2 41LeQdBMY9WMPstAEvT 2FpbR7kFzZrOGNyFTXu E0JulFDbMFkbB685OUa uLcA3ZTMnmwUqT9DiPB CvsXkrDbZ6n1P5Do56H CBZZWFyczwvdGQ+PHRk VLB9uJtoRIosDVTipK6 lBWJwE6g1XlAmQpP4FC kdI5JyEAPwfqhpGw74h Y1iTuFgTcD1IAwqZ8Mo icA6SVUedFQhGVndIVQ 7U75ej1L9IXOnPUOcYK H1kPW8aJ5vbPiyqvhvx GVmdDsgdmVydGljYWwt FMxgU143WKIzwAepSh0 rzHZ7H8HkNft6VDMuiF uvQM7wgOAxNOwkKg0wx LmylQazTG5dAPKexsso RTEenX7nEMBvhDCfePe kPH2dKHChgjadz197Kx TfIIH4HBCyvWOkU4Hsh C5sTxPyHNEnMKHhA5Qv vTJbRLvpD805WPyeQvR 2JZGsxlXvZ3BvZQCimV jzBlA8s2T3Vi0KpWX1e UD2f4Y1O9RvqDHtMMM2 TQV2tsltmsz0G1XgGos vdHI+VL30JQWpOU04iV YsuTOsb4mxbAm1MjZzE FXaAZL2cHojWHxmj1Re KQTyI79hjWDua6U7IDA rjMzorHBkIqFldJC4bB 3fNDaowgpct2fipfsqA odsa9fvpo79zK96T76v IHdpZHRoPSIzMCUiIHZ shLstvk7klR1zHj3+PG RvqEY4aVF1uD6oZeEkZ cI8NCvvA864TiAptTBp Mcwjr4dpe6vwqGf6EjL mUHMmcdMqjVwoYLM5c2 EjIa31I62vKKjpKSQgI SJaWPJqOFXbgHgmto2t bE2dXi2+XJ2qk6blnp0 1cS25zVM+NJYkLOI5yD arEOhyLNOhsF7eNIvnX rD3YJCxRmShjG02kKZo IOcrTx9tpVjccGqwFH0 gLYMibsliu027SzKac9 rrKLYwmIEgGDmpRHG0Q 86tx4D9MRGjQSHdJEO9 oCA1xS2tiRnbukvvxZW mdDsgdmVydGljYWwtYW jcL173RNEcoHsrQyPbm FUqR1ulcjQAUM2lKngh dGQ+ZHAqVIR1kTlhHNw hFMJdmB3wDPYcF5q5Uw HkMoR7GImlR8XbxgT5O DCgnBKaVRQeaRUEiA5p qkyro9nwknpyLfHfOEG jITl6KWb5GKWbtPxiRn NpTEH8ZbT4PKC1nHObw G8txOnhgwdeqH1kFzk+ RklOOjwvdGQ+PHRkIHN 2aPsaFOcjHTTwvN2qNV SiW8x1YtAdNlE8QYzdP 0VppoT5XLOrjGHhFZEn dJRFxQ9ytxcpm8rttjl aArEgHFEgUUz8NQb8EW TptBiqLtXxZBI3XsW7W YQ0jQAnbH2jvOqybodl eS7aTpf+TVJOOjwvdGQ +LPYwCPF0aOxbSXmeAI RcgQ6aHBReB6y6YwQtU mE9DOdkW3CchcB8SXBf cIJtJKEjaWEXhM7svui wh4oglfwmTtYlFJCpZW w7BOz1ZGBedPftIxOcD JO5WpR5GIA9mXLdtN5l vGzdgneakT7pIwl+UGF 5XDY5ZW56RP69P1RiTf wvdGFibGU+PHRhYmxlI HdpZHRoPScxMDAlJyBz jMwdAH4g (more content not included)... Normal [facility] Main OR Intraoperative Recor don 09-12-2022 Main OR Intraoperative Record IntraOp Document Type FT Summary Primary Physician: Theodore Jacques DO Finalized Date/Time: 09/12/22 07:37:03 Pt. Name: IRWIN MOORE/Sex: 1960 Male Med Rec #: [id number] Physician: Theodore Jacques DO Financial #: [id number] Pt. Type: O Room/Bed: [id number] Admit/Disch: 09/10/22 10:26:49 - 09/11/22 10:50:00 Institution: Case Times FT Entry 1 Patient Times In Room 09/10/22 13:18:00 Out Room 09/10/22 16:08:00 Procedure Times Start 09/10/22 14:09:00 Stop 09/10/22 16:04:00 Anesthesia Times Start 09/10/22 13:18:00 Stop 09/10/22 16:08:00 Block Timeout w09/10/22 11:50:00 Anesthesia Last Modified By: Helene Freitas 09/10/22 16:10:51 General Comments: BLOCK TIME OUT AT 1150 WITH AND O,SAFLUND,RN ASSISTING, HEART RATE 56 BPM AND SPO2 98% ON ROOM AIR, PATIENT TOLERATED WELL.EDUARDO FREDERICK. 09/12/22 Chart opened to review and send charges [facility] CSFA Case Attendance FT Entry 1 Entry 2 Entry 3 Case Attendee Kasia Wang CRNA, DO, Theodore Weber RN, Cher Role Performed ADULT REMEDIAL EDUCATION INSTRUCTOR Surgeon - Primary CAR JOCKEY Time In 09/10/22 13:18:00 09/10/22 13:18:00 09/10/22 13:18:00 Time Out 09/10/22 16:08:00 09/10/22 16:08:00 09/10/22 16:08:00 Procedure KNEE TOTAL ROBOT KNEE TOTAL ROBOT KNEE TOTAL ROBOT ARTHROPLASTY(Right) ARTHROPLASTY(Right) ARTHROPLASTY(Right) Comments IS SUPERVISING Last Modified By: Helene Freitas Kelsie E Sayler, Kelsie E 09/10/22 16:10:53 09/10/22 16:10:53 09/10/22 16:10:53 Entry 4 Entry 5 Case Attendee Heelne Freitas Jessica D Role Performed Public Health Physician - Primary Scrub - Primary Time In 09/10/22 13:18:00 09/10/22 13:18:00 Time Out 09/10/22 16:08:00 09/10/22 16:08:00 Procedure KNEE TOTAL ROBOT KNEE TOTAL ROBOT ARTHROPLASTY(Right) ARTHROPLASTY(Right) Comments Last Modified By: Helene Freitas Kelsie E 09/10/22 16:10:53 09/10/22 16:10:53 General Comments: SHINE BOURGEOIS REP, IN ATTENDANCE.EDUARDO FREDERICK EHOVE STUDENT, SCRUBBED IN AND IN ATTENDANCE.EDUARDO FREDERICK. Perioperative Protocols FT Pre-Care Text: Implements protective measures prior to operative or invasive procedure, confirms identity before the operative or invasive procedure, verifies operative procedure, surgical site, and laterality Entry 1 Procedure(s) KNEE TOTAL ROBOT Patient Identity Birthday, ID Band ARTHROPLASTY(Right) Verified (select at Check, Patient least 2): Participation Consents / H and P Anesthesia Consent, Operative Site Present Verified HandP, Surgery/Procedure Marking Verified Consent, Transfusion Consent Surgical Site Yes Laterality Verified Yes Verified Procedure Verified Yes Correct Patient Yes Position Verified Availability Equipment, Implant, Prep Dry n/a Verified (If Medication Applicable) PreOp Antibiotic Yes Time Out Kasia Wang CRNA, Given Participants Theodore Jacques DO, Hord RN, Fortino Kwon Kelsie E, Rowena Cullen Time Out Complete 09/10/22 14:06:00 Outcomes Met? Yes Last Modified By: Helene Freitas 09/10/22 14:10:18 Post-Care Text: The patient is free from signs and symptoms of injury caused by extraneous objects Allergy Information FT Pre-Care Text: Verifies allergies Entry 1 Allergies Reviewed? Yes Allergies Reviewed Self/Patient With Outcomes Met? Yes Last Modified By: Helene Freitas 09/10/22 12:08:41 Post-Care Text: The patient received appropriate medication(s) safely administered during the perioperative period Surgical Procedures FT Entry 1 Procedure Description Procedure KNEE TOTAL ROBOT Modifiers Right ARTHROPLASTY Surgeon Description RIGHT TOTAL KNEE ARTHROPLASTY WITH ROBOTIC ASSIT Primary Procedure Yes Primary Surgeon Theodore Jacques DO Start 09/10/22 14:09:00 Stop 09/10/22 16:04:00 Anesthesia Type General Surgical Service Orthopedics Wound Class 1 - Clean Last Modified By: Skylar Corey CST 09/12/22 07:34:37 General Case Data FT Pre-Care Text: Classifies surgical wound, implements aseptic technique, initiates traffic control Entry 1 Case Information OR OR 4 FT Case Level Level 6 Wound Class 1 - Clean Specialty Orthopedics ASA Class 3 Preop Diagnosis RIGHT KNEE Postop Same As Preop Yes OSTEOARTHRITIS Postop Diagnosis RIGHT KNEE Outcomes Met? Yes OSTEOARTHRITIS Last Modified By: Helene Freitas 09/10/22 16:10:59 Post-Care Text: The patient is free from signs and symptoms of infection Skin Assessment (Pre Procedure) FT Pre-Care Text: Implements protective measures to prevent skin/ tissue injury due to thermal or mechanical sources Evaluates for signs and symptoms of physical injury to skin and tissue Entry 1 Skin Integrity Intact, [place], Warm, and Skin Abnormality No Dry Outcomes Met? Yes Last Modified By: Helene Freitas 09/10/22 12:10:30 Post-Care Text: The patient is free from signs and symptoms of injury caused by extraneous objects Patient Pos (more content not included)... Normal [facility] Auto Diffon 09-11-2022 Basophils/100 WBC (Bld) 0.1 % Normal 0.0-2.0 [facility] Comment on above: Order Comment: Order Added by Discern Expert. Performed By: #### 1 [id number], [id number] #### [facility] [address] [place] [address] Basophils/Leukocytes Auto (Bld) [Pure # fraction] 0.0 E9/L Normal 0.0-0.2 [facility] Comment on above: Order Comment: Order Added by Discern Expert. Performed By: #### 1 [id number], [id number], [id number] #### [facility] [address] [place] [address]200 Eosinophils/100 WBC (Bld) 0.0 % Normal 0.0-8.0 [facility] Comment on above: Order Comment: Order Added by Discern Expert. Performed By: #### 1 [id number], [id number], [id number], [id number], [id number] #### [facility] [address] [place] [address]21 Eosinophils/Leukocytes Auto (Bld) [Pure # fraction] 0.0 E9/L Normal 0.0-0.5 [facility] Comment on above: Order Comment: Order Added by Discern Expert. Performed By: #### 1 [id number], [id number], [id number], [id number], 7248980, [id number] #### [facility] [address] [place] [address] 25353 Lymphocytes/100 WBC (Bld) 6.2 % Low 14.0-50.0 [facility] Comment on above: Order Comment: Order Added by Discern Expert. Performed By: #### 1 [id number], [id number], 5982751, 9009991, 8442273, 8133055 #### [facility] [address] [place] [address]19 Lymphocytes/Leukocytes Auto (Bld) [Pure # fraction] 0.7 E9/L Low 1.0-4.0 [facility] Comment on above: Order Comment: Order Added by Discern Expert. Performed By: #### 1 [id number], [id number], 1266229, 0299161, 9885099, 2290594 #### [facility] [address] [place] [address] Monocytes/100 WBC (Bld) 5.0 % Normal 4.0-14.0 [facility] Comment on above: Order Comment: Order Added by Discern Expert. Performed By: #### 1 [id number], 6773874, 5120782, 9225319, 9357992, [id number] #### [facility] [address] [place] [address] Monocytes/Leukocytes Auto (Bld) [Pure # fraction] 0.6 E9/L Normal 0.2-1.0 [facility] Comment on above: Order Comment: Order Added by Luis Expert. Performed By: #### 1 [id number], [id number], 3324560, 4464106, 3622529, 4750975 #### [facility] [address] [place] [address] 04755 Neutrophils/100 WBC (Bld) 88.7 % High 36.0-75.0 [facility] Comment on above: Order Comment: Order Added by Luis Expert. Performed By: #### 1 [id number], 0290020, 7255355, 8253115, 5562412, 1375803 #### [facility] [address] [place] [address] Neutrophils/Leukocytes Auto (Bld) [Pure # fraction] 9.9 E9/L High 2.0-7.5 [facility] Comment on above: Order Comment: Order Added by Luis Expert. Performed By: #### 1 [id number], [id number], 5615094, 0218590, 2855798, [id number] #### [facility] [address] [place] [address] [place] 09-11-2022 Urea nitrogen [Mass/Vol] 16 mg/dL Normal 5-21 [facility] Comment on above: Performed By: #### 1 [id number], 2024897, 7124925, 9934680, 4474121, 3014513 #### [facility] Laboratory [address] [place] [address] CBC w/ Auto Diffon Erythrocyte distribution width (RBC) [Ratio] 15.0 % High 10.9-14.2 [facility] Comment on above: Performed By: #### 1 [id number], 4987561, 1445534, 1721886, 5951075, 7907066 #### [facility] Laboratory [address] [place] [address] Hematocrit (Bld) [Volume fraction] 36.1 % Low 37.7-49.0 [facility] Comment on above: Performed By: #### 1 [id number], 4142639, 5137052, 8070704, 6670931, 5685254 #### [facility] Laboratory [address] [place] [address] Hemoglobin (Bld) [Mass/Vol] 11.8 g/dL Low 13.5-17.5 [facility] Comment on above: Performed By: #### 1 0592435, 1351934, 7525840, 2529808, 0254133, 6560994 #### [facility] Laboratory [address] [place] [address] MCH (RBC) [Entitic mass] 26.9 pg Low 27.0-34.0 [facility] Comment on above: Performed By: #### 1 5927661, 3722210, 4668060, 3917025, 2274811, 9941869 #### [facility] Laboratory [address] [place] [address] MCHC (RBC) [Mass/Vol] 32.7 g/dL Normal 31.4-36.0 [facility] Comment on above: Performed By: #### 1 [id number], 6874560, 0208641, 1049028, 5969870, 7467709 #### [facility] Laboratory [address] [place] [address] MCV (RBC) [Entitic vol] 82.2 fL Normal 80.0-100.0 [facility] Comment on above: Performed By: #### 1 9655961, 7660635, 8208768, 4750035, 6755603, 5129173 #### [facility] Laboratory [address] [place] [address] Platelet mean volume (Bld) [Entitic vol] 7.5 fL Normal 6.4-10.8 [facility] Comment on above: Performed By: #### 1 3669099, 5709866, 2732181, 4261762, 0697202, 9916434 #### [facility] Laboratory [address] [place] [address] Platelets (Bld) [#/Vol] 221.0 E9/L Normal 150.0-500.0 [facility] Comment on above: Performed By: #### 1 0370321, 2572421, 1959309, 0358463, 4497309, 3776412 #### [facility] Laboratory [address] [place], [place] [address] RBC (Bld) [#/Vol] 4.4 E12/L Normal 4.3-5.9 [facility] Comment on above: Performed By: #### 1 6730412, 0009721, 0329473, 1308381, 8888603, 3947110 #### [facility] Laboratory [address] [place] [address] WBC corrected for nucl RBC Auto (Bld) [#/Vol] 11.2 E9/L High 4.0-11.0 [facility] Comment on above: Performed By: #### 1 7763998, 0936150, 9811007, 2597832, 1740946, 8174337 #### [facility] Laboratory [address] [place] [address] CHEMISTRYOrdered By: SYSTEM SYSTEM on 09-11-2022 Anion gap [Moles/Vol] 9 mmol/L Normal 6 - 16 mEq/L [facility] Remisol Chloride [Moles/Vol] 104 mmol/L Normal 101 - 1 11 mmol/L [facility] Remisol CO2 [Moles/Vol] 26 mmol/L Normal 21 - 31 mmol/L [facility] Remisol Creatinine [Mass/Vol] 0.8 mg/dL Normal 0.5 - 1.3 mg/d L FT Remisol GFR/1.73 sq M.predicted among blacks MDRD (S/P/Bld) [Vol rate/Area] mL/min/1.73 m2 Normal >=59mL/min/1.73 m2 [facility] Chem S GFR/1.73 sq M.predicted among non-blacks MDRD (S/P/Bld) [Vol rate/Area] mL/min/1.73 m2 Normal >=59mL/min/1.73 m2 [facility] Chem S Potassium [Moles/Vol] 4.0 mmol/L Normal 3.5 - 5.3 mmol/L [facility] Remisol Sodium [Moles/Vol] 135 mmol/L Normal 135 - 145 mmol/L [facility] Remisol Urea nitrogen [Mass/Vol] 16 mg/dL Normal 5 - 21 mg/dL [facility] Remisol Consent for Anesthesiaon Consent for Anesthesia [id number] 35#1.00CD:127 Normal [facility] Creatinineon 09-11-2022 Creatinine [Mass/Vol] 0.8 mg/dL Normal 0.5-1.3 [facility] Comment on above: Performed By: #### 1 0142578, 0546307, 0440630, 1210491, 1806746, 1918472 #### [facility] Laboratory [address] [place] [address] Discharge Instructionson Discharge Instructions [id number] 730#1.00CD:127 Normal [facility] Discharge Note-Nursingon Discharge Note-Nursing IRWIN MOORE :1960 Visit Date:09/10/2022 Inpatient Discharge Instructions Your Care Team Admitting Physician - Theodore Jacques DO Referring Physician - Theodore Jacques DO Reason for Your Visit RIGHT KNEE OA Your Diagnosis Degenerative arthritis of right knee Tests Performed ABO/Rh Antibody Screen Automated Diff Capillary Glucose POC eGFR XR Knee 1 or 2 Views Right This Is Your Medications List acetaminophen-oxyco done (Percocet 5 mg-325 mg oral tablet) aspirin (aspirin 81 mg Oral EC Tab) celecoxib (CeleBREX 100 mg Cap) cephalexin (Keflex 500 mg Cap) citalopram (CeleXA 20 mg Tab) clonidine docusate (Colace 100 mg Cap) glimepiride (glimepiride 2 mg Tab) hydrALAZINE (hydrALAZINE 100 mg oral tablet) metformin (metformin 500 mg Tab) metoprolol (Toprol XL 50 mg Tab-ER) multivitamin (Multi Vitamin+) ramipril (Altace 10 mg Cap) simvastatin (simvastatin 20 mg Tab) venlafaxine [Image Removed: STOP]Stop taking these medications diclofenac (diclofenac sodium 75 mg Oral EC Tab) Procedure History Total knee arthroplasty (05/28/2022), Transrectal biopsy of prostate using ultrasound (US) guidance (07/21/2014). What to do next Instructions From Your Doctor Event Name Event Result Pending Diagnostic Test Results None Pharmacy Information [facility] Previously Scheduled Follow-Up Appointments Thursday 8:00 AM EDT With: Elijah Davila MD, Jewel Briones Where: [facility] Discharge Note-Nursing IRWIN MOORE :1960 Visit Date:09/10/2022 Inpatient Discharge Instructions Your Care Team Admitting Physician - Theodore Jacques DO Referring Physician - Theodore Jacques DO Reason for Your Visit RIGHT KNEE OA Your Diagnosis Degenerative arthritis of right knee Tests Performed ABO/Rh Antibody Screen Automated Diff Capillary Glucose POC eGFR XR Knee 1 or 2 Views Right This Is Your Medications List acetaminophen-oxyco done (Percocet 5 mg-325 mg oral tablet) aspirin (aspirin 81 mg Oral EC Tab) celecoxib (CeleBREX 100 mg Cap) cephalexin (Keflex 500 mg Cap) citalopram (CeleXA 20 mg Tab) clonidine docusate (Colace 100 mg Cap) glimepiride (glimepiride 2 mg Tab) hydrALAZINE (hydrALAZINE 100 mg oral tablet) metformin (metformin 500 mg Tab) metoprolol (Toprol XL 50 mg Tab-ER) multivitamin (Multi Vitamin+) ramipril (Altace 10 mg Cap) simvastatin (simvastatin 20 mg Tab) venlafaxine [Image Removed: STOP]Stop taking these medications diclofenac (diclofenac sodium 75 mg Oral EC Tab) Procedure History Total knee arthroplasty (05/28/2022), Transrectal biopsy of prostate using ultrasound (US) guidance (07/21/2014). What to do next Instructions From Your Doctor Event Name Event Result Pending Diagnostic Test Results None Pharmacy Information [facility] Previously Scheduled Follow-Up Appointments Thursday 8:00 AM EDT With: Elijah Davila MD, Jewel Briones Where: [facility] Normal [facility] HEMATOLOGYOrdered By: SYSTEM SYSTEM on 09-11-2022 Basophils/100 WBC (Bld) 0.1 % Normal 0.0 - 2.0 % [facility] HemeAutoSS Basophils/Leukocytes Auto (Bld) [Pure # fraction] 0.0 E9/L Normal 0.0 - 0.2 E9/L [facility] HemeAutoSS Eosinophils/100 WBC (Bld) 0.0 % Normal 0.0 - 8.0 % [facility] HemeAutoSS Eosinophils/Leukocytes Auto (Bld) [Pure # fraction] 0.0 E9/L Normal 0.0 - 0.5 E9/L [facility] HemeAutoSS Lymphocytes/100 WBC (Bld) 6.2 % Low 14.0 - 50.0 % [facility] HemeAutoSS Lymphocytes/Leukocytes Auto (Bld) [Pure # fraction] 0.7 E9/L Low 1.0 - 4.0 E9/L [facility] HemeAutoSS Monocytes/100 WBC (Bld) 5.0 % Normal 4.0 - 14.0 % [facility] HemeAutoSS Monocytes/Leukocytes Auto (Bld) [Pure # fraction] 0.6 E9/L Normal 0.2 - 1.0 E9/L [facility] HemeAutoSS Neutrophils/100 WBC (Bld) 88.7 % High 36.0 - 75.0 % [facility] HemeAutoSS Neutrophils/Leukocytes Auto (Bld) [Pure # fraction] 9.9 E9/L High 2.0 - 7.5 E9/L [facility] HemeAutoSS HEMATOLOGYOrdered By: Steve Montana on 09-11-2022 Erythrocyte distribution width (RBC) [Ratio] 15.0 % High 10.9 - 14.2 % [facility] HemeAutoSS Hematocrit (Bld) [Volume fraction] 36.1 % Low 37.7 - 49.0 % [facility] HemeAutoSS Hemoglobin (Bld) [Mass/Vol] 11.8 g/dL Low 13.5 - 17.5 gm/dL [facility] HemeAutoSS MCH (RBC) [Entitic mass] 26.9 pg Low 27.0 - 34.0 pg [facility] HemeAutoSS MCHC (RBC) [Mass/Vol] 32.7 g/dL Normal 31.4 - 36.0 gm/dL [facility] HemeAutoSS MCV (RBC) [Entitic vol] 82.2 fL Normal 80.0 - 100.0 fL [facility] HemeAutoSS Platelet mean volume (Bld) [Entitic vol] 7.5 fL Normal 6.4 - 10.8 fL [facility] HemeAutoSS Platelets (Bld) [#/Vol] 221.0 E9/L Normal 150.0 - 500.0 E9/L [facility] HemeAutoSS RBC (Bld) [#/Vol] 4.4 E12/L Normal 4.3 - 5.9 E12/L [facility] HemeAutoSS WBC corrected for nucl RBC Auto (Bld) [#/Vol] 11.2 E9/L High 4.0 - 11.0 E9/L [facility] HemeAutoSS Inpatient Clinical Summaryon 09-11-2022 Inpatient Clinical Summary [address] [address] Clinical Summary Person Information: Name: IRWIN MOORE Age: 62 Years : 1960 Sex: Male PCP: Kasia Alicea MD Marital Status: Race: White Ethnicity: Non- or Language: Grenadian Visit Id: Visit Reason: RIGHT KNEE OA Speciality: Acuity: Enc Type: Observation Med Service: Surgery Arrival: 09/10/2022 10:26:49 Discharge: Dispo Type: Address: [address] [place] [id number] Provider Notes: Diagnosis: Degenerative arthritis of right knee Problems Active BMI 34.0-34.9,adult Screening for malignant neoplasm of colon Basal cell carcinoma, face Testosterone deficiency Cataract Chronic cystitis BPH (benign prostatic hyperplasia) Anxiety and depression Hypertensive retinopathy Macular degeneration Diabetes Sciatica Lower extremity edema HTN (hypertension) Smoking Status: Functional Status: Sensory Deficits: History of Falls: Mobility Assistance Prior to Admission: ADLs: Minimal assistance Current Level of Assistance for Self-Care/Mobility: Cognitive Status: Allergies No Known Allergies Measurements: Height: Weight: 109.5 kg Blood Pressure: 162 mmHg / 88 mmHg BMI: Procedures No Procedures Documented Immunizations No Immunizations Documented This Visit Final Med List: acetaminophen-oxyco done (Percocet 5 mg-325 mg oral tablet) 1-2 tab(s) Oral q4hr. Refills: 0. aspirin (aspirin 81 mg Oral EC Tab) 2 Tablets By Mouth every day for 30 Days. Refills: 0. celecoxib (CeleBREX 100 mg Cap) 1 Capsules By Mouth 2 times a day as needed for pain. Refills: 0. cephalexin (Keflex 500 mg Cap) 1 Capsules By Mouth every 8 hours for 7 Days. Refills: 0. citalopram (CeleXA 20 mg Tab) 1 Tablets By Mouth every day. clonidine 0.2 Milligram By Mouth 3 times a day. docusate (Colace 100 mg Cap) 1 Capsules By Mouth 2 times a day as needed for constipation. Refills: 0. glimepiride (glimepiride 2 mg Tab) 1 Tablets By Mouth every day. hydrALAZINE (hydrALAZINE 100 mg oral tablet) 1 Tablets By Mouth 3 times a day. metformin (metformin 500 mg Tab) 1 Tablets By Mouth 2 times a day. metoprolol (Toprol XL 50 mg Tab-ER) 2 Tablets By Mouth 2 times a day. multivitamin (Multi Vitamin+) tab By Mouth every day. ramipril (Altace 10 mg Cap) 1 Capsules By Mouth 2 times a day. simvastatin (simvastatin 20 mg Tab) 1 Tablets By Mouth once a day (at bedtime). venlafaxine 150 Milligram By Mouth every day. Care Team Members: Attending Physician: Theodore Jacques DO Consulting Physician: Referring Physician: Theodore Jacques DO Follow up: With: Address: When: [place] [address] Business (1) 09/30/2022 2:30 PM With: Address: When: Kasia Alicea [address] [place] [id number] Business (1) Comments: No PCP appointment required for surgery patient. Please follow up with ORTHO. Thank you! Type Location Start Finish State [facility] Office Visit [facility] [place] 09/23/2022 8:00 AM 09/23/2022 8:15 AM Confirmed Patient Education Information: Rodo Jacques - Total Knee Arthroplasty (Custom) [facility] Inpatient Patient Summaryon 09-11-2022 Inpatient Patient Summary [address] [address] Patient Discharge Instructions PERSON INFORMATION Name: IRWIN MOORE Date of : 1960 Current Date: 09/11/2022 10:14:50 PHYSICIANS Admitting Physician: Theodore Jacques DO Primary Care Physician: Kasia Alicea MD PCP Comment: Discharge Diagnosis: Degenerative arthritis of right knee Condition at Discharge: Improved IRWIN MOORE has been given the following list of follow-up instructions, prescriptions, and patient education materials: PATIENT FOLLOW-UP INFORMATION Diet: Discharge Activity: Discharge Restrictions: Wound Care Instructions: Remove Your Dressing In Days Call Your Doctor For: IF UNABLE TO CONTACT YOUR PHYSICIAN AND YOU FEEL IT IS AN EMERGENCY, GO TO THE NEAREST EMERGENCY ROOM OR CALL 911 Home Treatment: Devices/Equipment: Special Services: Additional Instructions: Primary Care Physician to provide the following pending test results: None Follow up: With: Address: When: [place] [address] Business (1) 09/30/2022 2:30 PM With: Address: When: Kasia Alicea [address] [place] [phone] Business (1) Comments: No PCP appointment required for surgery patient. Please follow up with ORTHO. Thank you! In the event that this physician does not participate in your insurance network, please consult with your insurance company to find a nearby participating provider. Type Location Start Finish State [facility] Office Visit [facility] TOBY Osorio 09/23/2022 8:00 AM 09/23/2022 8:15 AM Confirmed Comment: REYNOLD Crews GERALD A, have received the attached patient education materials/instructi ons and have verbalized understanding: Patient Signature Date Clinican/Nurse Signature Date HERE ARE THE MEDICATION CHANGES THAT OCCURRED DURING YOUR HOSPITAL STAY Medications to Continue Taking That Have Changed [facility], [place] [id number], [phone] START: aspirin (aspirin 81 mg Oral EC Tab) 2 Tablets By Mouth every day for 30 Days. Refills: 0. Last Dose: Next Dose: STOP: aspirin 81 Milligram By Mouth every day. Medications to Continue with No Changes Medicine [place] [id number], [address], [place] [id number], [phone] acetaminophen-oxyco done (Percocet 5 mg-325 mg oral tablet) 1-2 tab(s) Oral q4hr. Refills: 0. Last Dose: Next Dose: celecoxib (CeleBREX 100 mg Cap) 1 Capsules By Mouth 2 times a day as needed for pain. Refills: 0. Last Dose: Next Dose: cephalexin (Keflex 500 mg Cap) 1 Capsules By Mouth every 8 hours for 7 Days. Refills: 0. Last Dose: Next Dose: docusate (Colace 100 mg Cap) 1 Capsules By Mouth 2 times a day as needed for constipation. Refills: 0. Last Dose: Next Dose: Other Medications citalopram (CeleXA 20 mg Tab) 1 Tablets By Mouth every day. Last Dose: Next Dose: clonidine 0.2 Milligram By Mouth 3 times a day. Last Dose: Next Dose: glimepiride (glimepiride 2 mg Tab) 1 Tablets By Mouth every day. Last Dose: Next Dose: hydrALAZINE (hydrALAZINE 100 mg oral tablet) 1 Tablets By Mouth 3 times a day. Last Dose: Next Dose: metformin (metformin 500 mg Tab) 1 Tablets By Mouth 2 times a day. Last Dose: Next Dose: metoprolol (Toprol XL 50 mg Tab-ER) 2 Tablets By Mouth 2 times a day. Last Dose: Next Dose: multivitamin (Multi Vitamin+) tab By Mouth every day. Last Dose: Next Dose: ramipril (Altace 10 mg Cap) 1 Capsules By Mouth 2 times a day. Last Dose: Next Dose: simvastatin (simvastatin 20 mg Tab) 1 Tablets By Mouth once a day (at bedtime). Last Dose: Next Dose: venlafaxine 150 Milligram By Mouth every day. Last Dose: Next Dose: No Longer Take the Following Medications diclofenac (diclofenac sodium 75 mg Oral EC Tab) 1 Tablets By Mouth 2 times a day. Comment: MEDICATION LIST PROVIDED FOR YOU IS A LIST OF YOUR CURRENT MEDICATIONS. PLEASE CARRY THIS WITH YOU AT ALL TIMES. acetaminophen-oxyco done (Percocet 5 mg-325 mg oral tablet) 1-2 tab(s) Oral q4hr. Refills: 0. aspirin (aspirin 81 mg Oral EC Tab) 2 Tablets By Mouth every day for 30 Days. Refills: 0. celecoxib (CeleBREX (more content not included)... Normal [facility] Interdisciplinary Note - King e Manageron 09-11-2022 Interdisciplinary Note - Business Rules Analyst CRM to room to discuss DC planning. Patient is from home with his spouse, and she will transport at DC. Patient is alert and oriented. Patient is observation stay for OA right knee. Patient had Right TKA. Patient verified PCP, home DME and insurance. Patient denied need for any home DME. Patient will DC home with [facility] [place]. Patient was provided CRM contact information, white board updated. [place] today. Normal [facility] Comment on above: Result Comment: Elec tronically Signed By: Ana Gold\.br\Date and Time Signed: 09/11/22 09:28 EDT Interdisciplinary Note - Preethi n 09-11-2022 Interdisciplinary Note - OT OT six clicks score: =home with [facility]. Pt completes ADL functional transfers CGA using FWW and full body dressing setup A using shift foreman, sock aide, and modified shoe horn. DME/AE discussed with handout provided. Pt and Pt's verbally report no questions/concerns with going home safely. No further OT needs. Normal [facility] IntraOperative Documentson 0 09-11-2022 IntraOperative Documents [id number] 39#1.00CD:127 Normal [facility] Lyteson 09-11-2022 Anion gap [Moles/Vol] 9 mmol/L Normal 6-16 [facility] Comment on above: Performed By: #### 1 [id number], 8128015, 2749494, 3504394, 0964529, 8407448 ####[facility] [address] [place] [address] Chloride [Moles/Vol] 104 mmol/L Normal 101-111 [facility] Comment on above: Performed By: #### 1 1725678, 9562510, 0880710, 3783330, 1378943, 2333425 ####[facility] [address] [place] [address] CO2 [Moles/Vol] 26 mmol/L Normal 21-31 [facility] Comment on above: Performed By: #### 1 1150748, 8324447, 1863474, 0172623, 9931678, 3657379 ####[facility] [address] [place] [address] Potassium [Moles/Vol] 4.0 mmol/L Normal 3.5-5.3 [facility] Comment on above: Performed By: #### 1 9909048, 7813067, 3013244, 3191802, 5148731, 3290359 ####[facility] [address] [place] [address] Sodium [Moles/Vol] 135 mmol/L Normal 135-145 [facility] Comment on above: Performed By: #### 1 6928361, 1089985, 7474221, 6537187, 7025418, 4060957 ####[facility] [address] [place] [address] Patient Education - Texton 0 09-11-2022 Patient Education - Text [place], [place] [facility] DISCHARGE INSTRUCTIONS: TOTAL KNEE ARTHROPLASTY INCISION CARE: The bandage may be changed by your home health care nurse at 10 days postoperatively. A new Mepilex bandage should then be placed. The bandage is waterproof, so you may shower at home. Steri-strips (paper tape strips) may be applied to the incision if any slight wound separation is noted. These should remain in place for five days and then they may come off in the shower. Please notify the office if any increase in redness, tenderness, drainage, fever, or wound separation is noted beyond this point. Compression stockings may be helpful if any significant or uncomfortable swelling in the legs is noted postoperatively. Use and removal instructions should be given by physical therapy. If the swelling is below the knee, knee high compression stockings may suffice. If this does cause swelling into the thigh region, waist high compression stockings may be beneficial as well. These can be obtained from most pharmacies, or can be obtained through Home Health. The mild grade compression stockings are best used initially. When applying or removing the compression stocking, you may need assistance. MEDICATIONS: You may resume your home medications at the time of discharge. Arixtra and Lovenox are mild blood thinners that prevent the development of blood clots in the legs. One of these has been used during your hospitalization. After discharge home you should continue the use of two stomach coated baby Aspirin tablets daily with your largest meal for 30 days after home discharge. Please notify your doctor if you have a stomach sensitivity to Aspirin or history of previous stomach ulcers. Pain medication has been prescribed as well. You may continue to use the pain medication every four hours as needed. Any narcotic pain medication can cause side effects including stomach upset, constipation, or light-headedness. You should not drive or operate machinery, or drink alcohol while using the narcotic pain medication. You should not use other pain medications with this prescription pain medication unless further directed by your physician. PHYSICAL THERAPY Continue the range of motion and strengthening exercises initiated by Physical Therapy in the hospital. Continue weight bearing, as ordered, to the operated knee for four to six weeks as directed in Physical Therapy, or until your strength is improved and Physical Therapy will then allow you to progress to full weight. This will be with the use of a walker or crutches initially. After four or six weeks you may then progress to the use of one crutch or a cane. A quad-cane is preferred as this is more stable. Physical therapy as begun in the hospital will continue at home, possibly with the assistant chief engineer of Home Health Physical Therapy or in the hospital as an outpatient. When you have become independent with the physical therapy program, this will then be discontinued as a supervised program and you will be instructed to continue the physical therapy exercises at home. Your exercises are mckinney to successful rehabilitation. You should gain full extension first, hopefully before hospital discharge, and gain 90 degrees flexion by one month post-op. Do the exercises daily, twice if preferred. DRIVING: Please do not drive for 4-6 weeks pending therapy progress. Driving too soon, you are considered an impaired jinriksha driver, and this could be a problem. It is therefore advised not to drive until after your first office visit following surgery. FOLLOW-UP OFFICE VISIT: Theodore Jacques, DO [facility] [address] [place] [address] Reviewed: [facility] Preoperative Documentson Preoperative Documents [id number] 18#1.00CD:127 [facility] Preoperative Documents [id number] 07#1.00CD:127 [facility] Preoperative Documents [id number] 68#1.00CD:127 Normal [facility] Progress Note-Physicianon Progress Note-Physician Patient: IRWIN MOORE Age: 62 years Sex: Male : 1960 Associated Diagnoses: None Author: Theodore Jacques DO POD 1 s/p R TKA pain controlled. cindy po. no CP/SOB R LE: dressings dry, comp supple, strong ankle PF/DF, brisk cap refill, neg homans WBC 11.2 Hgb 11.8 Hct 36.1 Plt 221 BMP WNL post op xrays reviewed yesterday. prosthesis in satisfactory position. no fractures Plan: - D/C home after PT Objective Vital Signs 09/11/2022 4:30 EDT Temperature Oral 36.5 DegC Heart Rate Monitored 55 bpm LOW Respiratory Rate 18 br/min Systolic Blood Pressure 189 mmHg HI Diastolic Blood Pressure 94 mmHg HI SpO2 97 % Normal [facility] Comment on above: Result Comment: Elec tronically Signed By: Theodore Jacques DO\.br\Date and Time Signed: 09/11/22 12:44 EDT eGFRon 09-11-2022 GFR/1.73 sq M.predicted among blacks MDRD (S/P/Bld) [Vol rate/Area] mL/min/{1.73_m2} Normal >=59 [facility] Comment on above: Order Comment: Order added by Discern Expert. Result Comment: eGFR is race adjusted. AA=. Performed By: #### 1 [id number], 1488295, 0065490, 3484891, 1538506, 0933349 ####[facility] [address] [place] [address] GFR/1.73 sq M.predicted among non-blacks MDRD (S/P/Bld) [Vol rate/Area] mL/min/{1.73_m2} Normal >=59 [facility] Comment on above: Order Comment: Order added by Discern Expert. Result Comment: Manager Services la kidney disease could be indicated at eGFR's of less than 60 mL/min/1.73m2. Kidney failure is indicated at less than 15 mL/min/1.73m2. Performed By: #### 1 [id number] ####[facility] [address] [place] [address] ABO/Rhon 09-10-2022 ABO/Rh Negative Invalid Interpretation Code [facility] Comment on above: Performed By: #### 1 [id number] ####[facility] [address] [place] [address] ABO/Rh History Checkon 09-10 ABO/Rh History Check Verified Hx Blood Type Normal [facility] Comment on above: Performed By: #### 1 [id number], [id number], [id number], [id number] ####[facility] [address] [place] [address] ABSCon 09-10-2022 ABSC Gel Interp Negative Normal [facility] Comment on above: Performed By: #### 1 [id number], [id number], [id number], [id number] ####[facility] [address] [place] [address] BLOOD BANKOrdered By: Sarha Odell on 09-10-2022 ABO/Rh Interp Negative Invalid Interpretation Code [facility] BB Subsection ABSC Gel Interp Negative (09/10/22 11:05 AM) Normal [facility] BB Subsection Blood Bank ID#on 09-10-2022 BBID# [id number] Invalid Interpretation Code [facility] Comment on above: Performed By: #### 1 [id number], [id number], [id number], [id number] ####[facility] [address] [place] [address] CHEMISTRYOrdered By: Moody ROP User on 09-10-2022 Glucose [Mass/Vol] 112 mg/dL High 55 - 99 mg/dL [facility] C POC Subsection Comment on above: Result Comment: Xena beata Meter POC Device SN [id number] Invalid Interpretation Code [facility] POC Subsection POC User ID [id number] Invalid Interpretation Code [facility] POC Subsection POC Username ELSI BRADY Invalid Interpretation Code [facility] POC Subsection Capillary Glucose POCon 08-14 Glucose [Mass/Vol] 112 mg/dL High 55-99 [facility] Comment on above: Result Comment: Xena vargasd Meter Performed By: #### 7 [id number] #### [facility] [address] [place] [address] Consent for Treatmenton 08-14 Consent for Treatment [id number] E1#1.00CD:127 Normal [facility] H&P Updateon 09-10-2022 H&P Update [id number]#1.00CD:127 Normal [facility] Main OR PACU I Recordon 08-14 Main OR PACU I Record PACU Phase I Document Type FT Summary Primary Physician: Theodore Jacques DO Finalized Date/Time: 09/10/22 16:53:42 Pt. Name: IRWIN MOORE/Sex: 1960 Male Med Rec #: [id number] Physician: Theodore Jacques DO Financial #: [id number] Pt. Type: A Room/Bed: 07/07 Admit/Disch: 09/10/22 10:26:49 - Institution: Case Times PACU I FT Pre-Care Text: Identifies barriers to communication and implements measures to provide psychological support Develops individualized plan of care, and ensures continuity of care Maintains patient's dignity and privacy, and maintains patient confidentiality Identifies and reports philosophical, cultural, and spiritual beliefs and values Identifies individual values and wishes concerning care Implements aseptic technique, and administers prescribed antibiotic therapy and immunizing agents as ordered Evaluates postoperative tissue perfusion Implements thermoregulation measures, and monitors body temperature Evaluates postoperative respiratory status Evaluates postoperative cardiac status Evaluates postoperative neurological status Assesses pain control, collaborated in initiating patient-controlled analgesia and implements alternative methods of pain control Verifies allergies, administers prescribed medications and solutions, evaluates response to medications Entry 1 In PACU I 09/10/22 16:08:00 Discharge from PACU 09/10/22 17:08:00 I Outcomes Met? Yes Last Modified By: Zhanna Kaur RN 09/10/22 16:53:30 Post-Care Text: The patient demonstrates knowledge of the expected response to the operative or invasive procedure The patient's care is consistent with the individualized perioperative plan of care The patient's right to privacy is maintained The patient's value system, lifestyle, ethnicity, and culture are considered, respected, and incorporated into the perioperative plan of care The patient participates in decisions affecting his or her perioperative plan of care The patient is free from signs and symptoms of infection The patient has wound/tissue perfusion consistent with or improved from baseline levels established preoperatively The patient is at or returning to normothermia at the conclusion of the immediate postoperative period The patient's respiratory function is consistent with or improved from baseline levels established preoperatively The patient's cardiovascular status is consistent with or improved from baseline levels established preoperatively The patient's cardiovascular status is consistent with or improved from baseline levels established preoperatively The patient demonstrates and/or reports adequate pain control throughout the perioperative period The patient received appropriate medication(s), safely administered during the perioperative period Acuity Level PACU I FT Entry 1 Start Time 09/10/22 16:08:00 Stop Time 09/10/22 17:08:00 Acuity Level Acuity Level I Last Modified By: Zhanna Kaur RN 09/10/22 16:53:40 Finalized By: Zhanna Kaur RN Document Signatures Signed By: Zhanna Kaur RN 09/10/22 16:53 Normal [facility] Main OR Preoperative Recordo n 09-10-2022 Main OR Preoperative Record PreOp Document Type FT Summary Primary Physician: Theodore Jacques DO Finalized Date/Time: 09/10/22 14:08:14 Pt. Name: IRWIN MOORE/Sex: 1960 Male Med Rec #: [id number] Physician: Theodore Jacques DO Financial #: [id number] Pt. Type: A Room/Bed: Admit/Disch: 09/10/22 10:26:49 - Institution: Case Times PreOp FT Pre-Care Text: Verifies consent for planned procedure, identifies individual values and wishes concerning care, includes family members in perioperative teaching Entry 1 Patient Times. In Pre Surgery 09/10/22 10:35:00 Out Pre Surgery 09/10/22 13:16:00 Outcomes Met? Yes Last Modified By: Helene Freitas 09/10/22 14:08:13 Post-Care Text: The patient participates in decisions affecting his or her perioperative plan of care Finalized By: Helene Freitas Document Signatures Signed By: Helene Freitas 09/10/22 14:08 Normal [facility] Monitor Recordon 09-10-2022 Monitor Record [id number]:127 Normal [facility] Operative Reporton Operative Report Patient: IRWIN MOORE Age: 62 years Sex: Male : 1960 Associated Diagnoses: None Author: Theodore Jacques DO DATE OF SURGERY: 09/10/2022 SURGEON: Theodore Jacques D.O. DEVELOPMENT REPRESENTATIVE: Cher Weber CFA PREOPERATIVE DIAGNOSIS: Advanced degenerative osteoarthrosis, right knee POSTOPERATIVE DIAGNOSIS: Advanced degenerative osteoarthrosis, right knee OPERATION: Right total knee arthroplasty utilizing [employer] robotic arm assistance ANESTHESIA: Spinal + regional block OIL WELL PUMPER: Ag Choi DO and Kasia Wang CRNA IMPLANTS USED: Shine Triathlon Total Knee System 1. size 6 cruciate retaining cementless femur 2. Size 12 mm X3 CS polyethylene 3. Size 6 Tritanium cementless tibial baseplate 4. Size 35 mm asymmetric Tritanium cementless patella OPERATIVE INDICATIONS: Irwin is a 62-year-old male who has had persistent right knee pain despite numerous conservative measures. His pain interferes with her activities of daily living, ability to sleep at night, and quality of life. Her underwent left total knee arthroplasty 05/28/2022 and is currently doing well with the left knee. He agreed to proceed with the above procedure after a discussion of the risks, benefits, complications, alternatives, and expectations. Please see office notes for further details. The patient's surgery was preplanned utilizing CT scan and [employer] software. This included the planned implant sizes and positions, bone resection, and ligament balancing. Modifications to the plan were made intraoperatively as appropriate. PROCEDURE: The correct operative site was identified and marked in the preoperative holding area. The patient was administered intravenous antibiotics in accordance with SCIP Protocol. He was also given a gram of tranexamic acid intravenously about 15 minutes prior to incision. He was transported to the Regional Anesthetic Block Room and administered a regional anesthetic nerve block by the anesthesiologist. I requested the nerve block to assist with intraoperative and postoperative pain control. He was transported to the Operating Room and administered a spinal anesthetic. He was placed into the supine position and a well padded tourniquet was applied to the operative upper thigh. The right upper extremity was secured across the patient's torso. The operative lower extremity was then prepped and draped in the usual sterile fashion. The foot was placed into a padded hilliard and secured in the Shine knee positioner. Surgical time-out was performed with all required personnel present. The limb was exsanguinated with an Esmarch. Tourniquet was inflated to 300 mm Hg. A longitudinal incision over the anterior knee was made. Medial and lateral skin flaps were developed. Dissection was carried down through the subcutaneous layers. Medial parapatellar arthrotomy was performed and normal appearing joint fluid was encountered and suctioned. Irrisept solution was poured into the joint. The intermeniscal ligament was then cut and soft tissue at the medial tibial plateau was peeled off of the bone with Bovie electrocautery. The fat pad was sharply excised. The patella was everted and the knee was flexed. Tourniquet was deflated at 8 minutes and adequate perfusion was noted to return to the extremity. Areas of active bleeding were cauterized with the AquaMantys and Bovie. The tibial pins for the tibial array were placed approximately 5 finger breadths distal to the tibial tubercle along the medial tibial shaft. The tibial pins were placed outside of the incision through 2 small stab incisions. The tibial array was placed onto the pins and secured. The distal femoral pins for the femoral array were placed in the medial femoral condyle. The femoral array was affixed to the pins. The registration device was then placed into the distal femur just distal to the array pins along the medial femoral condyle. The tibial registration device was placed along the medial tibia within the surgical wound distal to the planned tibial resection. The hip center, medial and lateral malleoli were registered. Registration points along the distal femur and proximal tibia were captured. Osteophytes along the distal femur and proximal tibia were removed with a rongeur. Range of motion of the knee was then assessed with the computer. The patient had 6 degrees of recurvatum and 10 degrees of varus. Preliminary ligament balancing was performed with the tensioning spoons in both flexion and extension and these values were captured by the computer. Adjustments to the planned resection were made to balance the ligaments. The self-retaining medial and lateral retractors were then placed and secured to the leg hilliard. Bone resection was then performed with computer guidance using the saw attached to the [employer] robotic arm. Femoral cuts were made including anterior, posterior, and chamfer cuts. The tibial cut was (more content not included)... Normal [facility] Comment on above: Result Comment: Elec tronically Signed By: Theodore Jacques DO\.br\Date and Time Signed: 09/10/22 18:15 EDT Outpatient Surgery Discharge Instructionon 09-10-2022 Outpatient Surgery Discharge Instruction [place] [id number] Patient Discharge Instructions PERSON INFORMATION Name: MAGDALENAJENNIFER MCNEILLMADISON Ray Date of : 1960 Current Date: 09/10/2022 13:21:19 PHYSICIANS Admitting Physician: Theodore Jacques DO Discharge Diagnosis: Degenerative arthritis of right knee IRWIN MOORE has been given the following list of follow-up instructions, prescriptions, and patient education materials: IF UNABLE TO CONTACT YOUR PHYSICIAN AND YOU FEEL IT IS AN EMERGENCY, GO TO THE NEAREST EMERGENCY ROOM OR CALL 911 I, IRWIN MOORE, have received the attached patient education materials/instructi ons and have verbalized understanding: May we do a follow up call? Yes No I was present when discharge instructions were given Patient Signature Date Clinican/Nurse Signature Date Follow up: With: Address: When: [place] [address] Business (1) Type Location Start Finish State [facility] Office Visit [facility] TOBY [place] 09/23/2022 8:00 AM 09/23/2022 8:15 AM Confirmed Pharmacy Information: You may receive a survey from [employer] asking you to rate your care experience. Your feedback is important and will help us understand what we do well and how we can improve the quality of care we provide to you, your loved ones and our community. It?s an honor to serve you. Thank you for choosing [facility] HERE ARE THE MEDICATION CHANGES THAT OCCURRED DURING YOUR HOSPITAL STAY Medications to Continue with No Changes [facility] [address] [place], [place] [id number], [phone] acetaminophen-oxyco done (Percocet 5 mg-325 mg oral tablet) 1-2 tab(s) Oral q4hr. Refills: 0. aspirin (aspirin 81 mg Oral EC Tab) 2 Tablets By Mouth every day for 30 Days. Refills: 0. celecoxib (CeleBREX 100 mg Cap) 1 Capsules By Mouth 2 times a day as needed for pain. Refills: 0. cephalexin (Keflex 500 mg Cap) 1 Capsules By Mouth every 8 hours for 7 Days. Refills: 0. docusate (Colace 100 mg Cap) 1 Capsules By Mouth 2 times a day as needed for constipation. Refills: 0. Other Medications aspirin 81 Milligram By Mouth every day. citalopram (CeleXA 20 mg Tab) 1 Tablets By Mouth every day. clonidine 0.2 Milligram By Mouth 3 times a day. diclofenac (diclofenac sodium 75 mg Oral EC Tab) 1 Tablets By Mouth 2 times a day. glimepiride (glimepiride 2 mg Tab) 1 Tablets By Mouth every day. hydrALAZINE (hydrALAZINE 100 mg oral tablet) 1 Tablets By Mouth 3 times a day. metformin (metformin 500 mg Tab) 1 Tablets By Mouth 2 times a day. metoprolol (Toprol XL 50 mg Tab-ER) 2 Tablets By Mouth 2 times a day. multivitamin (Multi Vitamin+) tab By Mouth every day. ramipril (Altace 10 mg Cap) 1 Capsules By Mouth 2 times a day. simvastatin (simvastatin 20 mg Tab) 1 Tablets By Mouth once a day (at bedtime). venlafaxine 150 Milligram By Mouth every day. PATIENT EDUCATION INFORMATION Instructions: [place], [place] [facility] DISCHARGE INSTRUCTIONS: TOTAL KNEE ARTHROPLASTY INCISION CARE: The bandage may be changed by your home health care nurse at 10 days postoperatively. A new Mepilex bandage should then be placed. The bandage is waterproof, so you may shower at home. Steri-strips (paper tape strips) may be applied to the incision if any slight wound separation is noted. These should remain in place for five days and then they may come off in the shower. Please notify the office if any increase in redness, tenderness, drainage, fever, or wound separation is noted beyond this point. Compression stockings may be helpful if any significant or uncomfortable swelling in the legs is noted postoperatively. Use and removal instructions should be given by physical therapy. If the swelling is below the knee, knee high compression stockings may suffice. If this does cause swelling into the thigh region, waist high compression stockings may be beneficial as well. These can be obtained from most pharmacies, or can be obtained through Home Health. The mild grade compression stockings are best used initially. When applying or removing the compression stocking, you may need assistance. MEDICATIONS: You may resume your home medications at the time of discharge. Arixtra and Lovenox are mild blood thinners that prevent the development of blood clots in the legs. One of these has been used during your hospitalization. After discharge home you should continue the use of two stomach coated baby Aspirin tablets daily with your largest meal for 30 days after home discharge. Please notify your doct (more content not included)... Normal [facility] XR Knee 1 or 2 Views Righton 09-10-2022 XR Knee 1 or 2 Views Right Exam Date/Time: 09/10/2022 16:15 EDT Reason for Exam: Post-op evaluation;Other (please specify) Report IMPRESSION: RIGHT TOTAL KNEE REPLACEMENT. CLINICAL INFORMATION: Postop. COMMENT: 2 views. There is a right total knee prosthesis, in good position and alignment. There is gas in the soft tissues from the surgery. There are metallic surgical sherry along the anterior skin incision. Ordering Provider: Theodore Jacques FINAL REPORT Dictated: 09/10/2022 4:38 pm Chirag Anderson M.D. Signed (Electronic Signature): 09/10/2022 4:38 pm Signed by: Chirag Anderson M.D. Transcribed by: MANPREET Technologist: JOSSELINE Technical Comments Radiation Dose: Ka,r in mGy = na DAP = na [facility] Consent for Procedure/Surger yon 09-09-2022 Consent for Procedure/Surgery [id number]#[id number]:127 [facility] Provider Letteron 09-04-2022 Provider Letter September 04, 2022 IRWIN MOORE [address] [place] [phone] IRWIN MOORE 1960 Dear Mr. Moore, We have been trying to reach you with no success. You have an appointment with Dr Jewel Nava on September 23 which will need to be rescheduled since he will be out of the office that day. Please contact the office at the number listed below to get this appointment rescheduled at your earliest convenience. Thank you for your prompt attention to this matter. Please call [phone]. Sincerely, [facility] [address] [facility], [place] [address] [facility] Coding Summary.on 09-03-2022 Coding Summary. CD:[id number] bWw+PGhlYWQ+FO1CYWS mI04ycIZdcN8oU5XZPY lOSywgQVBQTElOSyIgb dUmEP6fmTLrJOFu IC8+JV2vKUKjAaqmmZL ti3A5ySG7S98ubh8kUT dwnAR4NGUeBzRgijshp 6aurRd1HIwrMznlSxUn SESpzI83WQR0lZ96Bh9 2wRQurXBba2egzAn5To AkRVLxELX5uQjdZGdzd 6JnGQSuR62olRBsq9C8 IGNvbGxhcHNlOyBlbXB 8gR6bLYijznezk4vsrr diSqq5jk64xELue0V7y PF6I5SnssB3HRReqCQg UhuihRWOmQ2szdlwo0y dpfpkJuMnGIGjOMw1PQ b3QFErcVgmWdXjNG23X FY7XSZabyOlK0MvGRKp iZkjJgK6q1F0Jb4BI0Q AOynaX2DIYLSFGSfsuG Q+ZC83pq17W3GjOfjmG mu1EVHxJMG1wWH2zZ1a NWBnQImjg9Z4hVO1B5N iyjStsg4ny2flUKPjDR ejX10ubSMqc6N4UVUqr BX7MBVinGjfJuLgrM47 Oyc+XMPhfAxxv1NyRhv lo8fra5qygZx8CxtdWC DsvwKqkItrAZT9j9VsN m7kFNQyzEM6qRK5yO0k FnMtVqB8OKbsL339NbW keKXwJjdrY21rC3SptR A+EDMaJyl9DFHymJzxT L7vI0FwXOPxmnljtMUg wQylLR9dUMFqvvdrHGZ wmS7nRRThX3c3KtRmPu X5GCdmV4IuPGVwcxumE b23vO2kSjIrCnX0PDxh W0HdvdH4OEJzpKZiWVu nZAX9Q40fw3D5XCQuTM SbSXF0qHG1eL8msSwwf jogbGVmdDsgdmVydGlj CDdkYFigA448SDHkrPr nPkNvZGluZyBEYXRlOi AgMDMvMjIvMjAyMzwvd GQ+LWFwPPW3bLldYPEb zFOfAXxuOc3hrOwufMi vKT7tCKYgsvjuVOXodJ 4lPVCmaWEryUkxCZ8sV TJxozgzr382YwCkZZL2 JRYzzQFhG2OflB9jSvD aNDEmIRLvX3UtuKIvXL jlR367IOngVnI4GQJnw zTfC9ZpTQDpjLckAjU0 y3H4Me2Ai3MpsdqhZ7U woXQoAnJyEcgsMQp8I6 RkPjwvdHI+GA93RNIuP M55MAy8GTG0mOuwLYkt YCMuC4UeoH3bXuUjMEQ kZGRkOyc+PHRhYmxlIH dpZHRoPScxMDAlJyBzd LmfPW3aIs9gHVNtFOEc mOgkmLZoGvNer6lvGXR kRUzxDI6qoGfrA2LnoC G7RERib5q1Hz82F19xO 3JvdXA+GMTmmQJ8cNP7 gU5nVyWvVaO6IOgpK48 6KaYtbNIqGynug2djk1 atnRq2AbW0INBltyCpd LkeIUD4t3MnAk20M59p IHdpZHRoPSIxNSUiIHZ biAggbu1kiF3lSk4+PG TftGQ3zLT8zJ0hWtYoZ xM9VCwpD702XaKmlTFl Auxdf0fss5dawBs5WfJ oNGRiwzQsrKalFTE7s6 TyVv56O2JkeFief5TyP ti5pz68iBLyj5E8aJF6 Y9JcDSKnevtpjORktHx tNS4nCMXlvybaTAZswX 8kSSXtQ8r1AtEgJaB9T ScnV0IrooO4NHNvrEJw TAMzkNXRkR3tsoaus7h mbnwnPoKmCBAgEUx4SI t0ZYDfjOoaIfHdIAL8I sN4OFW6qOKgvZ0gtNnh jfcyzA8bLns+JJW7bQQ xeZANDC0eAceibCQ+PH DoYHI3fFwaSGxnLVHmi H0fJLViJ9e3NeWrItK4 JFprO1IxkpF4MXWlzBH hPKQhxAUZcQ7aktoax5 dmvztpOyLcCITkJDk8S Ii5TPWvbZdhKoOhSVH4 LpX9MRI6vETibP9kfIv juxsutV7kSfo+QmlydG lkBLW6STk2C9MlHqm7Z NDkbAmnIT2ntLQmJLpx Tf6khWznjDyfNB6mRHL wwsirk232CvUri7urTO HgpJYoZSmgEOQ7E23zp 6R5EDRyHLQcACZ5dXY6 rF3vxOblmupmcURpqHd gdmVydGljYWwtYWxpZ2 52EZLglRpxYnOkLPd1Y 7MlUgh8DKAhiIptFX2f hNPyPZehCe5nyIaniYn pJJ4oQRTflbvnz187Dg Blw6qlCOGgzDDpPAhgB OS8W61wp8T6CKEfEFBe LTH3oSB8kV1hlMcvzoi gbGVmdDsgdmVydGljYW fpFKnjI427NTRfnVxcW pUnhFa2L0MkZkq7MGAb fTmyPB2orCNxQOjaNc7 axRimoQbdFD4hNHItow skx134IkGtd0wuRIWxo SWiZUdkTRS6Z50oi7M4 IPAdYZBaUJE9nIJ8fB2 hbGlnbjogbGVmdDsgdm ShxJecJNgcSCbvE945I HRvcDsnPlBhdGllbnQg YCumDNn3K5TeTzzwmUY +ZG88LQKsSU73uTEdqS Auf1zugKk2ZcYrROJnK IV8vWpdPYcae5AxEBGn H36kmEFej5A7RGQluFc xpSStHtZjgIA1fB6fTQ yingopn9oldhkfCeecj 9awdq02gE48J10bCUnw ZHRoPSIzMCUiIHZhbGl ggc5njL2sGk0+PGNvbC U0lRA7nL7sYTXwRdM5B AuvC630HkPraMGmUcoq z0css7purIv3LbZ9SGW mnnKmmYpuQZP6v0ImLh 46G27eQUyqYMRmPJNeA XVtRBRzoJkopk8geB5s Ii8+YVEmuYL2lOQ8dU1 eOrFcYwI9GJtsL406Rd PniATpMqquN02kL9Jfw XA+MZUhLlc9PRHdvJhk UG4viWIlQPprJw5jCML 5DnFlVeRzCQhvJ3NkZZ QascwlpuhmgZH3IZLwS PQqbU54Kx1itBwgFDXz kHQRtL7axkgip2azrho cZgYyKHIlSTz3QMv5HI ThbAdfFkOgOIB8PmK1U XF4kHRlbU2qdKidwrmj pH7oK7ZxTDIfguiiBb9 2jK1hPbAuLaM7KQgxMi c+ZW7QPDILLXPFXQOMK EQgQTwvdGQ+PHRkIHN0 oRymXLvjNJXivN6bVZI eL5a2IqIaBsA7GBqgL2 QaNZHhttfcKt34wM2xZ cHoDcJ6BUweX8NialP7 ALGuxRNdFBneDHI5X50 os7R9YJFkHMHrRFM1kH C5cR7kkYyewazkuWBen DsgdmVydGljYWwtYWxp G209UISgjUklDhCmMrI gWnU9OGt8L8KtTlk5DN WtcNrxGX4pfBKzYBjsC q4wjVupxEylTM0pHZXk jhjeURGlyQ0hIGXinOB xrCtrRT3lLTRwejakm3 84MrYeNKY6VEBexLEkC 0WpeB2bSdWgTFQyDKQd D9RtiDGxGUyfV420ZTs zNdJ9SNYnjdZfO6WnUH NqrMrgVwR4l8W1Ha62N CBZZWFyczwvdGQ+PHRk AGN3wQtvFDucIVGzkX9 mTPHwK8l6YnPaUgP2TA qyI4VpDBIokzviJh64h Q0cKtOmTkL8TRwtD6Ps itE1ILUehVAaNUzoKEF 3D78aw2E4VXOiLKGqNW V0bQZ5mN2buZehfpsof GVmdDsgdmVydGljYWwt ZPqcA809FAOduEabWl7 qbXR5N0BsCyw9OYUusJ wiML6lnTYuVZjlAx7pq GluaNttTY2yBNFxtwzk EDSbnU4vMJUxyGWqdFj ePY2rJBGnzeony994Su EpITU2MMZvgYNqQ5Xna V1tHyXpTPGfLQMhY7Bu mKSwFAfaW116JLxnBiV 2KVWginWcN8UyJQPkiL exZhU0b0U3Rj6KbHJyO UZfDK33YD69PX54A3Bg PjwvdGFibGU+PHRhYmx lIHdpZHRoPScxMDAlJy EapEucQK7iYy7xDUZkO NYxdFfvaIBvXnShq5ur WRSbPPinGD5zwLanD6W xbRO6CPIkw4r3Db94S2 4xK0ZcyIL+ONVhrEJ5h WX0pE9oBtUvHjO8XGcm S262EbLciJJnIenrc7p ea4kfwZg7DxCdQTQsxw BldQcoAEE6d9AnCj68V 29sIHdpZHRoPSIyMCUi CVZrqMzskq8hbD6iRw2 +MBBrsQA0bKC6wS8iVv FjGjO6OSviM407NzCup RRhQacoD13oG9OvuCF+ JRIjQzi7QYLtzRbfAX2 efWLpFJqgWc6yZGS3Cn PkCoTgPLmnM0DzVRUun jbxkydyoRH7QKIfRAZj sG79Nq0hxHxjUg0xEHJ gKCU2JJVhjPFjX3WvgQ 8dCaQuAMJuPTHcD3Sgj NYiALopD695AUvaExW3 LNUfdiQtT0FmCTCukGi lCaC3y1H3Qc9IiEnoeE UmHW9cDwGgMAu7E1RoT tc3DHWlpNcvMY8fsAIp TFzjXk8eeKrunWglAU6 nFTImqpwej259VvSkf0 wfKLXkuJJdIOugKIA4W 95da0I9OBKlBEOhFLC4 pZC0mP1dxOjlpjfxmOY mdDsgdmVydGljYWwtYW udZ214ZFPtrNooFkAVQ vz3E9AyZzq9REIfvLzi YH8xgZGtWDsqZn0jpJw olVxcDM7gKGYrcjxlu5 77TzKtj0hmIZXppDAhV LuwHKK9Q25sk8G6PXWt AAEwFNN5jDY3aQ9biFe nbjogbGVmdDsgdmVydG pnOSohAGfyH856UIAtz EotOv3BDpe4N8LgKaf1 FIWcyBiqUN6nsDGeXMg rHl2nbAlxqMgxSH4qRE Ndggjuo881NkAdz9qyC LTabKCsOPnySLJ4H88a i2Z7YGJaPTZvMHP3uIZ 1oD6txMyyoxckbHHjrR sgdmVydGljYWwtYWxpZ 246IHRvcDsnPlBheWVy OjwvdGQ+UL61zt30X9H jCnpeMsl5ZRSvEMN9zU Q7jM4fWUYbLLcld9F5w BD1R1YaejRpvu1bl4rl YXBzZTog (more content not included)... Normal [facility] BUNOrdered By: SYSTEM SYSTEM on 08-26-2022 Urea nitrogen [Mass/Vol] 23 mg/dL High 5-21 FT Remisol Comment on above: Performed By: #### 2 [id number], [id number], [id number] ####[place] [id number] [place] [address] CBC w/IndicesOrdered By: Lc San on 08-26-2022 Erythrocyte distribution width (RBC) [Ratio] 14.4 % High 10.9-14.2 FT HemeAutoSS Comment on above: Performed By: #### 2 223895, 2428545, 11475369, 7016660, 2172903, 7201328 ####[address] [place] [address] Hematocrit (Bld) [Volume fraction] 40.1 % Normal 37.7-49.0 [facility] [employer] HemeAutoSS Comment on above: Performed By: #### 2 168927, 7214910, 61687802, 4038169, 1519525, 9721193 ####[address] [place] [address] Hemoglobin (Bld) [Mass/Vol] 13.3 g/dL Low 13.5-17.5 FT [facility] Comment on above: Performed By: #### 2 855357, 2201478, 16027936, 1568701, 1258574, 5309187 ####[address] [place] [address] MCH (RBC) [Entitic mass] 27.4 pg Normal 27.0-34.0 FT [facility] Comment on above: Performed By: #### 2 000365, 2560009, 93758950, 7750910, 9209289, 8947275 ####[id number] MCHC (RBC) [Mass/Vol] 33.2 g/dL Normal 31.4-36.0 FTM C HemeAutoSS Comment on above: Performed By: #### 2 716379, 7378003, 66239772, 7023597, 7893011, 9022749 ####[address] MCV (RBC) [Entitic vol] 82.5 fL Normal 80.0-100.0 [facility] HemeAutoSS Comment on above: Performed By: #### 2 972412, 1222368, 52462569, 9266886, 5029650, 3805834 ####[place] [address] Platelet mean volume (Bld) [Entitic vol] 8.7 fL Normal 6.4-10.8 FT [facility] Comment on above: Performed By: #### 2 085885, 6880462, 76338350, 5634063, 8429602, 3952911 ####[address] [address] Platelets (Bld) [#/Vol] 195.0 E9/L Normal 150.0-500.0 FT [facility] Comment on above: Performed By: #### 2 676758, 4560770, 00078839, 8426221, 7028905, 8755400 ####[address] [address] RBC (Bld) [#/Vol] 4.9 E12/L Normal 4.3-5.9 FT [facility] Comment on above: Performed By: #### 2 535120, 8781163, 20728466, 3596092, 5934639, 4281646 ####[address] [address] WBC corrected for nucl RBC Auto (Bld) [#/Vol] 5.7 E9/L Normal 4.0-11.0 [facility] HemeAutoSS Comment on above: Performed By: #### 2 119329, 8701761, 64967336, 1396902, 9045227, 7363457 ####[facility] [address] [place] [address] CHEMISTRYOrdered By: SYSTEM SYSTEM on 08-26-2022 GFR/1.73 sq M.predicted among blacks MDRD (S/P/Bld) [Vol rate/Area] mL/min/1.73 m2 Normal >=59mL/min/1.73 m2 [facility] Chem S GFR/1.73 sq M.predicted among non-blacks MDRD (S/P/Bld) [Vol rate/Area] mL/min/1.73 m2 Normal >=59mL/min/1.73 m2 [facility] Chem S CT Lower Extremity w/o Contr ast [place] 08-26-2022 CT Lower Extremity w/o Contrast Right Exam Date/Time: 08/26/2022 08:20 EDT Reason for Exam: RIGHT KNEE OA Report IMPRESSION: ADVANCED DEGENERATIVE ARTHRITIS RIGHT KNEE. CLINICAL HISTORY: RIGHT KNEE OA COMMENT: Unenhanced images were obtained per the Ward protocol. There are small bony cystic changes of the acetabulum and femoral head at the right hip. The bones at the right hip are otherwise unremarkable. No significant arthritic changes, no fracture, nor dislocation is evident. There are degenerative arthritic changes at the right knee. There is severe ulaj-fk-[id number] narrowing of the medial knee joint compartment. There are subarticular bone cystic changes, there is bony sclerosis, and there is hypertrophic spurring at the medial knee joint compartment. 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 There is varus angulation at the right knee. No fracture nor dislocation is noted. There is a large joint effusion. There are minimal hypertrophic arthritic changes at the tibiotalar and fibulotalar joints. There are posterior and plantar heel spurs. All CT scans at this facility use dose modulation, iterative reconstruction, and/or weight based dosing when appropriate to reduce radiation dose to as low as reasonably achievable. Ordering Provider: Theodore Jacques FINAL REPORT Dictated: 08/26/2022 1:04 pm Chirag Anderson M.D. Signed (Electronic Signature): 08/26/2022 1:04 pm Signed by: Chirag Anderson M.D. Transcribed by: MANPREET Technologist: LAINA Normal [facility] Consent for Treatmenton 08-13 Consent for Treatment [id number] 0E#1.00CD:127 Normal [facility] CreatinineOrdered By: SYSTEM SYSTEM on 08-26-2022 Creatinine [Mass/Vol] 0.8 mg/dL Normal 0.5-1.3 FTM C Remisol Comment on above: Performed By: #### 2 740200, 2646035, 74585218, 8499133, 9718296, 4947641 ####[facility] [address] [place] [address] GlucoseOrdered By: SYSTEM SY STEM on 08-26-2022 Glucose [Mass/Vol] 106 mg/dL Normal 55-199 FT R emisol Comment on above: Performed By: #### 2 229526, 8256089, 43575209, 3014163, 9843479, 1723103 ####[facility] [address] [place] [address] LytesOrdered By: SYSTEM SYST EM on 08-26-2022 Anion gap [Moles/Vol] 12 mmol/L Normal 6-16 FTM C Remisol Comment on above: Performed By: #### 2 452240, 7837402, 11692464, 7517232, 8961599, 6293330 ####[facility] [address] [place] [address] Chloride [Moles/Vol] 104 mmol/L Normal 101-111 [facility] Remisol Comment on above: Performed By: #### 2 078655, 8871051, 42346744, 7800669, 8632008, 1257273 ####[facility] [address] [place] [address] CO2 [Moles/Vol] 28 mmol/L Normal 21-31 [facility] Obey kelin Comment on above: Performed By: #### 2 957023, 7216755, 69577676, 8201186, 7023437, 9415726 ####[facility] [address] [place] [address] Potassium [Moles/Vol] 3.7 mmol/L Normal 3.5-5.3 [facility] C Remisol Comment on above: Performed By: #### 2 582340, 0531182, 32646161, 7384306, 8134551, 8092468 ####[facility] [address] [place] [address] Sodium [Moles/Vol] 140 mmol/L Normal 135-145 [facility] R emisol Comment on above: Performed By: #### 2 242839, 9271324, 22235797, 6131648, 0833972, 0238023 ####[facility] [address] [place] [address] UA With Cult Reflexon 2022 Bacteria LM Ql (Urine sed) 1+ /HPF Abnormal Trace [facility] Comment on above: Performed By: #### 1 5186977 #### [facility] [address] [place] [address] Bilirubin Ql (U) Negative Normal Negative [facility] Comment on above: Performed By: #### 1 6752092 #### [facility] [address] [place] [address] Clarity (U) CLEAR Normal Clear [facility] Comment on above: Performed By: #### 1 7011632 #### [facility] [address] [place] [address] Color (U) YELLOW Normal Yellow [facility] Comment on above: Performed By: #### 1 1419383 #### [facility] [address] [place] [address] Epithelial cells.squamous LM.HPF (Urine sed) [#/Area] 0-2 Normal 0-2 [facility] Comment on above: Performed By: #### 1 9249969 #### [facility] [address] [place] [address] Glucose Test strip (U) [Mass/Vol] Negative Normal Negative [facility] Comment on above: Performed By: #### 1 7796669 #### [facility] [address] [place] [address] Hemoglobin Ql (U) Negative Normal Negative [facility] Comment on above: Performed By: #### 1 1919402 #### [facility] [address] [place] [address] Ketones (U) [Mass/Vol] Negative Normal Negative [facility] Comment on above: Performed By: #### 1 0000977 #### [facility] [address] [place] [address] [place].plasma/[place] .RBC (Bld) [Mass ratio] 0-3 Normal 0-3 [facility] Comment on above: Performed By: #### 1 8387027 #### [facility] [address] [place] [address] Nitrite Ql (U) Negative Normal Negative [facility] Comment on above: Performed By: #### 1 3679890 #### [facility] [address] [place] [address] pH (U) 6.0 [pH] Invalid Interpretation Code 5.0-9.0 [facility] Comment on above: Performed By: #### 1 8007511 #### [facility] [address] [place] [address] Protein (U) [Mass/Vol] Negative Normal Negative [facility] Comment on above: Performed By: #### 1 8910446 #### [facility] [address] [place] [address] Specific gravity (U) [Rel density] 1.025 Invalid Interpretation Code 1.005-1.030 [facility] Comment on above: Performed By: #### 1 3384564 #### [facility] [address] [place] [address] Type of Urine collection method Clean Catch Normal [facility] Comment on above: Performed By: #### 1 0571135 #### [facility] [address] [place] [address] Urobilinogen Qn (U) 0.2 {Ady'U}/dL Normal 0.0-1.0 [facility] Comment on above: Performed By: #### 1 4815038 #### [facility] [address] [place] [address] WBC Auto Ql (U) Negative Normal Negative [facility] Comment on above: Performed By: #### 1 6882715 #### [facility] [address] [place] [address] WBC LM.HPF (Urine sed) [#/Area] 0-5 Normal 0-5 [facility] Comment on above: Performed By: #### 1 6453626 #### [facility] [address] [place] [address] URINALYSISOrdered By: Romy lynn on 08-26-2022 Bacteria LM Ql (Urine sed) 1+ /HPF Invalid Interpretation Code Trace/HPF FT UA Auto SS Bilirubin Ql (U) Negative (08/26/22 9:25 AM) Normal Negative [facility] UA Auto SS Clarity (U) Clear (08/26/22 9:25 AM) Normal Clear [facility] UA Auto SS Color (U) Yellow (08/26/22 9:25 AM) Normal Yellow [facility] UA Auto SS Epithelial cells.squamous LM.HPF (Urine sed) [#/Area] 0-2 /HPF Normal 0-2/HPF [facility] UA Aut o SS Glucose Test strip (U) [Mass/Vol] Negative (08/26/22 9:25 AM) Normal Negative [facility] UA Auto SS Hemoglobin Ql (U) Negative (08/26/22 9:25 AM) Normal Negative [facility] UA Auto SS Ketones (U) [Mass/Vol] Negative (08/26/22 9:25 AM) Normal Negative [facility] UA Auto SS [place].plasma/[place] .RBC (Bld) [Mass ratio] 0-3 /HPF Normal 0-3/HPF [facility] UA Auto SS Nitrite Ql (U) Negative (08/26/22 9:25 AM) Normal Negative [facility] UA Auto SS pH (U) 6.0 *NA* (08/26/22 9:25 AM) Invalid Interpretation Code 5.0 - 9.0 [facility] UA Auto SS Protein (U) [Mass/Vol] Negative (08/26/22 9:25 AM) Normal Negative [facility] UA Auto SS Specific gravity (U) [Rel density] 1.025 *NA* (08/26/22 9:25 AM) Invalid Interpretation Code 1.005 - 1.030 [facility] UA Auto SS UA Spec Desc Clean Catch (08/26/22 9:25 AM) Normal [facility] UA Auto SS Urobilinogen Qn (U) 0.7768781 {Ady'U}/dL Normal 0.0 - 1.0 EU/dL [facility] UA Auto SS WBC Auto Ql (U) Negative (08/26/22 9:25 AM) Normal Negative [facility] UA Auto SS WBC LM.HPF (Urine sed) [#/Area] 0-5 /HPF Normal 0-5/HPF [facility] UA Auto SS eGFRon 08-26-2022 GFR/1.73 sq M.predicted among blacks MDRD (S/P/Bld) [Vol rate/Area] mL/min/{1.73_m2} Normal >=59 [facility] Comment on above: Order Comment: Order added by Discern Expert. Result Comment: eGFR is race adjusted. AA=. Performed By: #### 2 988790, 4117246, 53349511, 0683639, 4654576, 0001014 ####[facility] [address] [place] [address] GFR/1.73 sq M.predicted among non-blacks MDRD (S/P/Bld) [Vol rate/Area] mL/min/{1.73_m2} Normal >=59 [facility] Comment on above: Order Comment: Order added by Discern Expert. Result Comment: Manager Services al kidney disease could be indicated at eGFR's of less than 60 mL/min/1.73m2. Kidney failure is indicated at less than 15 mL/min/1.73m2. Performed By: #### 2 110165, 5058434, 78639918, 7866981, 1568602, 7223353 ####[facility] [address] [place] [address] Physician Orderon 08-18-2022 Physician Order [id number] 6#1.00CD:127 Normal [facility] Pre-Certification Formon Pre-Certification Form [id number] 30#1.00CD:127 Normal [facility] Physician Orderon 08-13-2022 Physician Order [id number] C6#1.00CD:127 [facility] Physician Orderon 08-07-2022 Physician Order [id number] 103#1.00CD:127 [facility] Outside Colonoscopyon 2022 Outside Colonoscopy [id number] 8A#1.00CD:127 [facility] Reminderson 07-17-2022 Reminders -- From: Tamara Estrada LPN To: GSN - Clinical; Sent: 07/17/2022 12:47:55 EST Show up: 06/15/2032 07:00:00 EST Subject: colonoscopy recall Due Date/Time: 07/16/2032 07:00:00 EST Reminder/Recall Patient is due for screening colonoscopy 07/16/2032. Normal [facility] Covid-19 PCR (CVDTBH)on 06-16 SARS-CoV-2 (COVID-19) RNA MARLA+probe Ql (Unsp spec) Not detected Normal NOT DETECTED [facility] Comment on above: Result Comment: This test is not yet approved or cleared by the [place] FDA. When there are no FDA-approved or cleared tests available, and other criteria are met, FDA can make tests available under an emergency access mechanism called an Emergency Use Authorization (EUA). The EUA for this test is supported by the [place] of Health and Human Service's (HHS's) declaration that circumstances exist to justify the emergency use of in vitro diagnostics for the detection and/or diagnosis of the virus that causes COVID-19. This EUA will remain in effect (meaning this test can be used) for the duration of the COVID-19 declaration justifying emergency of IVDs, unless it is terminated or revoked by FDA (after which the test may no longer be used). When diagnostic testing is negative, the possibility of a false negative should be considered in the context of a patient's recent exposures and the presence of clinical signs and symptoms consistent with SARS-CoV-2. Performed By: #### C [facility] #### [facility] [address] [place] [address] Dr. Reid Garsia Consent for Procedure/Surger yon 06-20-2022 Consent for Procedure/Surgery [id number] 3D#1.00CD:127 Normal [facility] Facesheeton 06-19-2022 Facesheet [id number] D8#1.00CD:127 Normal [facility] Operative Reporton 2 Operative Report Patient: IRWIN MOORE Age: 62 years Sex: Male : 1960 Associated Diagnoses: None Author: Ag Choi Jr, DO Postoperative Information Date/ Time: 05/28/2022 08:37:00 Preoperative Diagnosis: Acute postoperative pain.. Postoperative Diagnosis: Acute postoperative pain. Procedure: Femoral nerve block. Anesthesia Method: Local, Monitored anesthesia care. Performed by: Ag Choi Jr, DO. Medications: Midazolam 2mg. Complications: None. Notes: The patient was interviewed and examined prior to the planned operation. Anesthesia options were discussed including femoral nerve block for postoperative analgesia. This discussion included a description of the procedure, risks and benefits, as well as alternatives to the block. The patients questions were addressed and the patient elected to proceed with the femoral nerve block. The patient was placed in the supine position and monitored with continuous pulse oximetry, non-invasive blood pressure, and electrocardiography . The upper thigh was prepped with ChloraPrep and sterilely draped. Anatomical landmarks were identified with ultrasonographic guidance. A 2 x 22 gauge Stimuplex needle was inserted without pain or paresthesias. Loss of twitch was observed at _0.3_ mA. Following a negative attempted aspiration for blood, Ropivacaine 0.5% was slowly injected with to a total volume of _20_ cc. Periodic negative attempts at aspiration for blood were made as the local was injected. Initial injection of the first two cc's of anesthetic demonstrated a positive Jerry test. No pain or paresthesias were elicited with injection of the anesthetic. The patient tolerated the procedure well. The patient was then induced for general anesthesia and preparations for the proposed operation continued.. Normal [facility] Comment on above: Result Comment: Elec tronically Signed By: Ag Choi Jr, DO\.br\Date and Time Signed: 06/09/22 08:16 EST Progress Note-Physicianon Progress Note-Physician Patient: IRWIN MOORE Age: 62 years Sex: Male : 1960 Associated Diagnoses: None Author: Ag Choi Jr, DO Preoperative Information Time patient last ate or drank:=== (npo 8 hours) Anesthesia history: Patient history: No prior anesthesia problems. Re-evaluation prior to induction: Completed, Initial evaluation reviewed. Review of Systems Respiratory: No shortness of breath. Cardiovascular: No chest pain. Hematology/Lymphati cs: No bruising tendency, No bleeding tendency. Health Status Allergies: Allergic Reactions (All) No Known Allergies Current medications: (Selected) Inpatient Medications Ordered HYDROmorphone 1 mg/mL injectable solution: 0.4 mg = 0.4 mL, Injection, IV Push, q4min PRN Pain for 5 dose(s), Stop date Limited # of times, Routine, Start date 05/28/22 8:21:00 EST, 05/28/22 8:21:00 EST Lactated Ringers IV Kelin 1000 mL 1,000 mL: 1,000 mL, IV, 100 mL/hr, Routine, Start date 05/28/22 8:21:00 EST, 10 hour(s), Total volume (mL): 1,000, 106.9 kg, 2.29, m2 Lactated Ringers IV Kelin 1000 mL 1,000 mL: 1,000 mL, IV, 150 mL/hr, Routine, Start date 05/28/22 6:30:00 EST, 6.7 hour(s), Total volume (mL): 1,000, 106.9 kg, 2.29, m2 Phenergan 25 mg/mL Injection: 12.5 mg = 0.5 mL, Injection, IV Push, q2min PRN Other (see comment) for 2 dose(s), Stop date Limited # of times, Routine, Start date 05/28/22 8:21:00 EST, 05/28/22 8:21:00 EST cefazolin additive + Sodium Chloride 0.9% intravenous solution 50 mL: 2 gram = 1 EA, Powder-Inj, IV Piggyback, PREOP, Routine, Start date 05/28/22 6:30:00 EST, 100 mL/hr, Infuse over 30 minute(s) tranexamic acid additive + premix generic diluent 100 mL: 1,000 mg = 100 mL, Soln-IV, IV Piggyback, Once, Stop date 05/28/22 7:00:00 EST, Routine, Start date 05/28/22 7:00:00 EST, 200 mL/hr, Infuse over 30 minute(s) Documented Medications Documented Altace 10 mg Cap: 10 mg = 1 cap(s), Oral, BID, Refills(s) 0, High blood pressure CeleXA 20 mg Tab: 20 mg = 1 tab(s), Oral, Daily, Refills(s) 0, Anxiety Effexor XR 150 mg Cap-ER: 150 mg = 1 cap(s), Oral, Daily, Refills(s) 0, Other (see comment) Multi Vitamin+: tab, Oral, Daily, Refill(s) 0, Prophylaxis Toprol XL 50 mg Tab-ER: 100 mg = 2 tab(s), Oral, BID, Refills(s) 0, High blood pressure aspirin 81 mg oral capsule: 81 mg = 1 cap(s), Oral, Daily, Blood Thinner cloNIDine 0.1 mg tab: 0.2 mg = 2 tab(s), Oral, BID, Refills(s) 0, High blood pressure diclofenac sodium 75 mg Oral EC Tab: 75 mg = 1 tab(s), Oral, BID, Arthritis glimepiride 2 mg Tab: 2 mg = 1 tab(s), Oral, Daily, Blood glucose glucosamine hydrochloride 1500 mg oral tablet: 1,500 mg, 1 tab(s), Oral, BID, Refill(s) 0, Arthritis hydrALAZINE 100 mg oral tablet: 100 mg = 1 tab(s), Oral, BID, High blood pressure metformin 500 mg Tab: 500 mg = 1 tab(s), Oral, BID, Refills(s) 0, Blood glucose simvastatin 20 mg Tab: 20 mg = 1 tab(s), Oral, Once a day (at bedtime), Refills(s) 0, High cholesterol Problem list: All Problems Basal cell carcinoma, face / SNOMED CT 4126175069 / Confirmed BPH (benign prostatic hyperplasia) / SNOMED CT 084157629 / Confirmed Cataract / SNOMED CT 135200747 / Confirmed Chronic cystitis / SNOMED CT 06589900 / Confirmed Macular degeneration / SNOMED CT 6275527580 / Confirmed Diabetes / SNOMED CT 214184517 / Confirmed Lower extremity edema / SNOMED CT 964575774 / Confirmed History of TIA (transient ischemic attack) / SNOMED CT 1172177176 / Confirmed HTN (hypertension) / SNOMED CT 2965375981 / Confirmed Hypertensive retinopathy / SNOMED CT 08640999 / Confirmed Testosterone deficiency / SNOMED CT 8206128278 / Confirmed Anxiety and depression / SNOMED CT 727080254 / Confirmed Borderline diabetes / SNOMED CT 8666596835 / Confirmed Sciatica / SNOMED CT 12443009 / Confirmed Resolved: Anxiety / SNOMED CT 15876256 Resolved: BPH with urinary obstruction / SNOMED CT 8910727181 Resolved: Stroke / SNOMED CT 589083741 Resolved: Dysuria / SNOMED CT 69266838 Resolved: Hx of salvage determiner use of blood thinners / SNOMED CT 108064390 Resolved: Frequent urination / SNOMED CT 817296688 Resolved: Nocturia / SNOMED CT 770862202 Resolved: Elevated PSA / SNOMED CT 9281545179 Resolved: Urinary retention / SNOMED CT 912538512 Resolved: Urinary tract infection / SNOMED CT 178528777 Canceled: Microhematuria / SNOMED CT 015462711 Canceled: Transient ischemic attack / SNOMED CT 941039289 Histories Past Medical History: Resolved BPH with urinary obstruction (4005241905): Resolved. Elevated PSA (9467995087): Resolved. Hx of salvage determiner use of blood thinners (631815662): Resolved. Frequent urination (392991220): Resolved. Nocturia (337002364): Resolved. Dysuria (59933656): Resolved. Urinary retention (761498293): Resolved. Anxiety (00430518): Resolved. Stroke (815838755): Resolved. Urinary tract infection (224115729): Resolved. Family History: Hypertension Mother Heart disease Father Mother Diabetes (more content not included)... Normal [facility] Comment on above: Result Comment: Elec tronically Signed By: Ag Choi Jr, DO\.br\Date and Time Signed: 06/09/22 08:16 EST Progress Note-Physician Patient: IRWIN MOORE Age: 62 years Sex: Male : 1960 Associated Diagnoses: None Author: Ag Choi Jr, DO Postoperative Information Post Operative Note: Post Anesthesia Care Unit. Anesthetic utilized: Regional: Spinal. Health Status Allergies: Allergic Reactions (Selected) No Known Allergies Problem list: All Problems Basal cell carcinoma, face / SNOMED CT 5852485220 / Confirmed BPH (benign prostatic hyperplasia) / SNOMED CT 825071061 / Confirmed Cataract / SNOMED CT 787153860 / Confirmed Chronic cystitis / SNOMED CT 51726177 / Confirmed Macular degeneration / SNOMED CT 6137196880 / Confirmed Diabetes / SNOMED CT 201927227 / Confirmed Lower extremity edema / SNOMED CT 220114026 / Confirmed History of TIA (transient ischemic attack) / SNOMED CT 3544327119 / Confirmed HTN (hypertension) / SNOMED CT 7207506708 / Confirmed Hypertensive retinopathy / SNOMED CT 48848595 / Confirmed Testosterone deficiency / SNOMED CT 7840472684 / Confirmed Anxiety and depression / SNOMED CT 052492184 / Confirmed Borderline diabetes / SNOMED CT 3462248709 / Confirmed Sciatica / SNOMED CT 38384060 / Confirmed Resolved: Anxiety / SNOMED CT 04491185 Resolved: BPH with urinary obstruction / SNOMED CT 5275268645 Resolved: Stroke / SNOMED CT 505761923 Resolved: Dysuria / SNOMED CT 86337813 Resolved: Hx of salvage determiner use of blood thinners / SNOMED CT 968462557 Resolved: Frequent urination / SNOMED CT 818787353 Resolved: Nocturia / SNOMED CT 660827141 Resolved: Elevated PSA / SNOMED CT 3050866235 Resolved: Urinary retention / SNOMED CT 097857229 Resolved: Urinary tract infection / SNOMED CT 445056255 Canceled: Microhematuria / SNOMED CT 469461609 Canceled: Transient ischemic attack / SNOMED CT 968472166 Physical Examination Vital Signs 05/28/2022 15:10 EST Hourly Rounding Yes Promise to Return Yes 05/28/2022 14:22 EST Heart Rate Monitored 57 bpm LOW SpO2 95 % 05/28/2022 14:22 EST Systolic Blood Pressure 184 mmHg HI Diastolic Blood Pressure 87 mmHg Mean Arterial Pressure, Monitered 120 mmHg 05/28/2022 14:22 EST Respiratory Rate 16 br/min 05/28/2022 14:00 EST Hourly Rounding Yes Promise to Return Yes 05/28/2022 12:20 EST Heart Rate Monitored 61 bpm SpO2 95 % 05/28/2022 12:16 EST Respiratory Rate 15 br/min 05/28/2022 12:14 EST Systolic Blood Pressure 188 mmHg HI Diastolic Blood Pressure 71 mmHg Mean Arterial Pressure, Monitered 110 mmHg 05/28/2022 12:10 EST Temperature Temporal Artery In Error DegC (In Error) Heart Rate Monitored In Error bpm (In Error) Respiratory Rate Monitored In Error br/min (In Error) Systolic Blood Pressure In Error mmHg (In Error) Diastolic Blood Pressure In Error mmHg (In Error) SpO2 In Error % (In Error) 05/28/2022 12:05 EST Temperature Temporal Artery 36.2 DegC LOW Heart Rate Monitored 58 bpm LOW Respiratory Rate Monitored 16 br/min Systolic Blood Pressure 182 mmHg HI Diastolic Blood Pressure 89 mmHg SpO2 95 % 05/28/2022 11:55 EST Heart Rate Monitored 65 bpm Respiratory Rate Monitored 15 br/min Systolic Blood Pressure 137 mmHg Diastolic Blood Pressure 75 mmHg SpO2 94 % 05/28/2022 11:50 EST Heart Rate Monitored 69 bpm Respiratory Rate Monitored 17 br/min Systolic Blood Pressure 138 mmHg Diastolic Blood Pressure 68 mmHg SpO2 94 % 05/28/2022 11:45 EST Heart Rate Monitored 70 bpm Respiratory Rate Monitored 13 br/min Systolic Blood Pressure 137 mmHg Diastolic Blood Pressure 81 mmHg SpO2 99 % 05/28/2022 11:40 EST Temperature Axillary In Error DegC (In Error) Temperature Temporal Artery 36.2 DegC LOW Heart Rate Monitored 71 bpm Respiratory Rate Monitored 19 br/min Systolic Blood Pressure 140 mmHg Diastolic Blood Pressure 76 mmHg SpO2 99 % 05/28/2022 11:35 EST Heart Rate Monitored 67 bpm bpm Respiratory Rate 18 br/min br/min Systolic Blood Pressure 126 mmHg mmHg Diastolic Blood Pressure 68 mmHg mmHg SpO2 98 % % 05/28/2022 11:30 EST Heart Rate Monitored 67 bpm bpm Respiratory Rate 18 br/min br/min Systolic Blood Pressure 111 mmHg mmHg Diastolic Blood Pressure 62 mmHg mmHg SpO2 98 % % 05/28/2022 11:25 EST Heart Rate Monitored 65 bpm bpm Respiratory Rate 18 br/min br/min Systolic Blood Pressure 105 mmHg mmHg Diastolic Blood Pressure 52 mmHg mmHg SpO2 98 % % 05/28/2022 11:20 EST Heart Rate Monitored 64 bpm bpm Respiratory Rate 17 br/min br/min Systolic Blood Pressure 105 mmHg mmHg Diastolic Blood Pressure 51 mmHg mmHg SpO2 98 % % 05/28/2022 11:15 EST Heart Rate Monitored 60 bpm bpm Respiratory Rate 16 br/min br/min Systolic Blood Pressure 97 mmHg mmHg Diastolic Blood Pressure 54 mmHg mmHg SpO2 97 % % 05/28/2022 11:10 EST Heart Rate Monitored 60 bpm bpm Respiratory Rate 15 br/min br/min Systolic Blood Pressure 101 mmHg mmHg Diastolic Blood Pressure 54 mmHg mmHg SpO2 97 % % 05/28/2022 11:05 EST Heart Rate Monitored 57 bpm bpm Respiratory Rat (more content not included)... [facility] Comment on above: Result Comment: Elec tronically Signed By: Ag Choi Jr, DO\.br\Date and Time Signed: 06/09/22 08:16 EST IntraOperative Documentson 1 08-06-2021 IntraOperative Documents [id number] [facility] Coding Summary.on 06-04-2022 Coding Summary. CD:[id number] CSi3bIs+PGhlYWQ+PE1 CSPJaQ19haDFosJ2CP0 fXUW1NNKWRRSGNXY9GC L4fmZJ7FKrpP1LjecJk HvnymQZxFJ29RWl3PPB 6zUsgJSmnzH9gjIRxT7 t1BlPvMG77oY77DAdhX EHzQaD6RhBehqczrIAd G7iqNvRaiAZuWni+PHR hYmxlIHdpZHRoPScxMD RbNxMpqBmcAJ0zQb3tI GVyLWNvbGxhcHNlOiBj n2maCBZwXQinWF5oaKm fU0TnaQL3OZAdc9i5Ea 48dHI+IMQrFLW0eYhyK Lvvv396NsZvo5crRWW2 mZKaKYxwSRT2K65xh8Z 4VQLiYPSaJIL2iMR4kE 2zvVnhfwtnC5ZlaTDhV dD6VMX9yMJobC0urVro bmkmoS2dIko+X06SCO7 EJSNKVN0NLhm9U0LpLd wvdHI+FI10FXZnAT41a AWfpXBjw9lguQf5ExVp KKIfBPU6gWbbIDdbh1C bSCJkN03foUEnn2B6ZE JgqIbfrDBjIlPnrHA0h F2xHVnahoewh0glghim Uisxt5cybm79lJ19T38 gPXmfIRBzKAC6JMEkJM FjyVfvjz4pqX1iBo4+I Oxec3vmc1bktFe2LbHw OIVuodQlvZboXOP9a6O jMu97I9OiuZzxy6IwHb d6jr24iGVok4I6sAF5N UrnRBYkdJ8nRKlkEaM9 ANPmTnFgzM55pLXzONh kXc7qbUgjdAqpSF7hGT AmsampONDtpU6sPMBdj LQolXcwWJ3bXXXichug b352TfQyRTK4ARXtdYL aA3KqzZ0iPuEqAERdJP EuH6YebMDaZGgtD208U OlnCeY2ZJVxdvJpN7Tf TWYrwDlsHfR4s2N8Hr6 Wa2KmzibvFEY1QCggFD EdTeDnTzOtDmG4C0PwZ og9RRCatSkcSL8wW6Ez TIQtzssmfogqiJV4ZYC pGTVoiA77vITjGTatDs 0rb9P1j687XEQtCXGiu Z09Cu9cqUgiOAYpnAKV xA0djlnuj6peymudIuW uQRTwELd1TEm4RUXwpA fwRfKsFSS9KsM2TNO1v GAcwC8fdEzseavnuO3e Oyc+C52gbV6fQKO4FJC 3vvmjQATzyyOpSW53SJ 10L9AzVgdhjPXwhJS+P BWfxmCkmIghTY7sDsYu j3igj7DnKLuwX6XoTCA xGYliUdm0EPIxLNN7jX M6yC7rSDVzLUkxk9K3w MQ0K6FwzuKrpx6gc1gu PLTuFHhcD70ibWOgq2J 2CKXspNT1HSIdvBofJw TemI68Aak+PGNvbGdyb 3PaQspgk5ybh6xveRv6 IjMwJSIgdmFsaWduPSJ 5e1MaHo74T65rSMabUD RoPSIxNSUiIHZhbGlnb s7uqS0mLg5+PGNvbCB3 pDN1nQ1nRSNtUzZ0KAe mO695JyIojFCcAuiww1 ylc3nfpIl0FqEhLLJpi zDzzAspMSO5p8DoIv84 I42qFYysPJFnASOgMRQ zSVSvmPlnwk3znS1iFu 8+KH5wb2cfgu69cN13t HI+UCSpJGE7mPwzRZlf YBCqxZ4lOCqdHmB1DRI zUpCazJ44uGAoMLviPa 6izLapjNtoPT1dHAAxf zjwy338YhJsz3adDBGl lZSuCNoiNYE7K68hp0C 7RJTmWLIsVTD6kRR2zE 1hbGlnbjogbGVmdDsgd lNpqCyaFTleDMihW437 IHRvcDsnPlBhdGllbnQ rUyVjBMg1T0SrYnn9KE IbqVzxNB6ytMAhYKrcA c8laNrdeEzxOC3wBFQz rjroo553QrGfj6iaAOH hhHPiACegLAB6S50yo6 Y0MBUpWVHdJQD2lGT7x M0qyCdppkdtqXEgoEhz mbDqeJbgXWorWAjoE30 6IHRvcDsnPkJpcnRoIE IklRT5BO01CS28eRItx 6R8sOE5I5YhNXZskkly snmzfSU4ZDKdNFOdvF2 5Om5dmGojId4bGWKtAV W1UNJafCSuF3CmnA0kS iZlQLDpXOSeM3CnoFSy WSbiR210CVavPrR1KYJ yvrIhZ2LiYQFurUuxRe R5q5G7Mu0EU8K0OQ41S L93iYUts7U8rPS8I3Cr ALFkfbviwmrraRT8ZJZ fHOFvaS65Fu4nfTtiYm 3nPPBaPLQ7EVOuzBReQ 2XmsQ7mDqDlTNAuOVVt Q1IgsMGjBClkD731KNx qDbR1JMRiytRoY3BbLL FenTzdOwC2o2R1Fb4WE Xt2GG70RO14gTNei6U8 kMO7Z6EfZNZhnmbmwko bdAB2FBNpMIBlxN49Lo 6irJarKx6uMCPdSRT7Z GFqlJSdI8EfzC4yIsEf PDOnNBKcB2JpjBAqVPx iV996FEbzXpO7XTHfyz RtA6IeWGQxaEwcMlE9n 8C8Ka4WLWDcWK36LFE1 kIC4IC86RM82M2MxIee vdGFibGU+PHRhYmxlIH dpZHRoPScxMDAlJyBzd AerMU8wHy2nJBXnHYTp sHllgWOvEsQzl5hoXVY hVRlwTO5yfQyrW6UomX L4RLCty9d7Ff58D77pT 3JvdXA+OODymVG8yFN5 kN4pFtEoVjM3IFlaZ00 9RkUjaZHuVnclf2dyr8 ffmSn5MyG0BOPhoqBog GmfQIY9c1WuSz47L07k IHdpZHRoPSIxNSUiIHZ uvScrti1qnG0yFm9+PG IzwQV1bWT2aE2sTuPfJ dQ6MLqmY517ZrKbeASj Qmtiq8pzz5brxEo4OxD kKVHkkyHeuIbeCYY4m9 BbTv89M5KuqAoiq8VuW vr4wt60lWUbu4E6jCJ0 Z5LgYPZoibhorQPelHo kBQ8cVULcoeujKABybE 2vIHNgE1m7OxOfCcV3L RreF1WudlT6UVFucEPk RWvjIDS4M43ca1Y8LAY aNUVxLGE4zSG8sU1gmF lnbjogbGVmdDsgdmVyd RhoGYtiUFfeE523CVIj hWepGUOftU2rZNFsfXT zaDgpSF2nFXHqahjsNq vGMS8YKqemF4QUSFtLZ ZH5Y7WzGbo2UDOxwZzk HA8rrGDbAUdrSn0syPe xlThhNH4bZYQueeqoKV JoaZ0yXRFjnEIsjIzxU L1kGBQmuyyzo043YtYw ECA8ECRxvTKmQ1OuhB8 nJqBgFIIaVHOrA1QwgQ UhOUsfO071OLelDwC4D OAgqqHmO6XxPTGrrUhl GrY5j8I6Qp5aVi0uZS4 nDAL7FL07OB82kUJxs9 I6pTY6N9QzIGWelwdbb ymkiWP1DRJhIWZiqO92 gTToTWixXs9hg0W1s48 3LSCnUAUudL40Mg1ltP clCPDloMKWjQ0atgcdq 4hdrpeeVgByAMIpXVk1 UGn2DILahNghKfZrKIP 3PnA2OMW8eVJyuY4kfX zwsuoinJ3uGsx+NjQgW DNnznQ1M5EsTaz5OOKj nEpyTY4cnXRmRWfwZb2 hbZlwtIwpDW1vZFVanh wjRNOmbB9aDLSsdIOhl OgxUR8bOALlhboaa707 EsYrTVM4KGSkwUKfD6L mhF0uMfKnSKCvYLJfS8 TovEYdPYfaS587IIohY oD0PZGqcfGjD6NmFZUd kGbgUqS0o4E9Cp2DSWn fQO78RF66jUBxr0B5lY S8M6NySKHcoevlvrfhf HO1FADsLIAxtO64hMIy VLkxCr1il7I3j175VRA pOVWpuE50Ci0znVkmBI ScuCUNqP4kvzzyb9aub qykTvJhCEXbSXu5LEs7 GNWjlOxvJxPtGBP4KtC 6WDL8sGYvxL8esBwmya uzfW7wTtw+QM9frAucx W7amM8TWO8jVMTvwJGJ oDNqGWU6KN43NC37I7D yPjwvdGFibGU+PHRhYm xlIHdpZHRoPScxMDAlJ yEgtLbvME0yTj2uPIQs VWVztSafiLGmMlTte7y yRBWuJMkoSE9bqFgdE1 SbiST3PVAyv1d9Rw46Q 19zB4JopLG+PGNvbCB3 jDC2dO5bHaDiFtA7OIi gF158WxOqbOXfSsgim6 lne4xjtDp5YvWpKMWst cWlmKohTKD7z6WfWf83 O94tHLreSPKuYIQjEGX iDHYslBeqmz2aaX2cDp 8+SDTldJY2yKU3wG6yH lFtYbO3DDyrB804ApBx tUBwEcxkX81vV8LqoPX +LURvLbq6FIIyeBxoXC 3tgJAlPEdqDv0zAFS8R jIvAaSkQTkuY9BkLSAy tvbionzcvLC7TVPyEWN zaI34Dn3eqVawYj1yAN RsNQG3MUHlpFQqT5Lre U8hEoZtINEwDJAhQ1Hl kEPiKXqzK876KZxgKrA 0UZXmnfPaY3MnHAQmuC kqEoZ7w6F4Rz8DkXxqz VIcBQ7bPhHaMDh0O3Gt Nrr7OZYofHzqRV4ydIZ mOEowDr9yvVclgGbuIM 3aUQPqchsvs721AlHkn 6liBQRulXPiLFsiEBM8 D03eh7U8WHCyNOVwHWI 0nDU6sO2tbJklotcquY VmdDsgdmVydGljYWwtY ZnyA388QVSkyJlbZpUZ Jhw4H3KwNuy1VCBqbXb rJA9okROnTTszHo4jvN fbcYveCP5mCPBqwpvip 843SxUbg1rxHXPllOCl KQsqIWF3D48vw6B1PWZ iNOPlHXD4nFN2iM7szT lnbjogbGVmdDsgdmVyd BsxHSiwKSypI623ORKy pNnyDb9VYjm4Y1ByCrw 0WILmaYuyPG8kpSFeHK ffLg4tmYxkjCtpOR6wM AGoqfqoy227BzBno4uj FKViqYBzYArqDCQ6X70 vs8E7QUEfNYBpKVF0vW Y0jA2stYokjirpzHGaf DsgdmVydGljYWwtYWxp C739PQIxoGzbYtPaiRH yOjwvdGQ+YZ65im48T0 MqRvjsEod1IYIeVKP7o DA2wQ3dADKzFMtsm3F5 bGU9 (more content not included)... Normal [facility] JUHI DOP LEG LTon 12 US JUHI DOP LEG LT EXAMINATION: US JUHI DOP LEG LT HISTORY: Edema of left lower leg ; left knee replacement one week ago COMPARISON: No relevant comparison available. FINDINGS: REGION: Left lower extremity THROMBI: None. COMPRESSIBILITY: Normal compressibility. FLOW: Normal waveform and antegrade flow between 5 and 20 cm/s. OTHER: Subcutaneous edema. Fluid collection within the popliteal fossa 8.3 x 3.2 x 1.7 cm consistent with a Wang's cyst. IMPRESSION: 1. No deep vein thrombus within the left lower extremity. 2. Subcutaneous edema. 3. Large Wang's cyst. Electronically authenticated by: ROSAMARIA JASON Date: 2022-06-04 07:41 Normal [facility] Main OR Intraoperative Recor don 06-03-2022 Main OR Intraoperative Record IntraOp Document Type FT Summary Primary Physician: Theodore Jacques DO Finalized Date/Time: 06/03/22 10:39:00 Pt. Name: IRWIN MOORE/Sex: 1960 Male Med Rec #: [id number] Physician: Theodore Jacques DO Financial #: [id number] Pt. Type: A Room/Bed: [place] [address] Admit/Disch: 05/28/22 06:18:38 - 05/29/22 11:45:00 Institution: Case Times FT Entry 1 Patient Times In Room 05/28/22 09:40:00 Out Room 05/28/22 11:38:00 Procedure Times Start 05/28/22 10:16:00 Stop 05/28/22 11:36:00 Anesthesia Times Start 05/28/22 09:40:00 Stop 05/28/22 11:38:00 Block Timeout w/ 05/28/22 08:42:00 Anesthesia Last Modified By: Yandel CLARK, Lorena Roth 05/28/22 11:42:23 General Comments: Block by Dr. Choi HR 60 O2 SAt 96% RA Yvan Justice RN Spinal at 0946 by Mario Casanova CRNA 06/03/22 Chart opened to review and send charges [facility] Case Attendance FT Entry 1 Entry 2 Entry 3 Case Attendee Mario Casanova CRNA, DO, Jason A Roth GEOTECHNICAL FIELD TECHNICIAN, Liasam Orozco Role Performed ADULT REMEDIAL EDUCATION INSTRUCTOR Surgeon - Primary GEOTECHNICAL FIELD TECHNICIAN/SA Time In 05/28/22 09:40:00 05/28/22 10:02:00 05/28/22 09:40:00 Time Out 05/28/22 11:38:00 05/28/22 11:26:00 05/28/22 11:38:00 Procedure KNEE TOTAL ROBOT KNEE TOTAL ROBOT KNEE TOTAL ROBOT ARTHROPLASTY(Left) ARTHROPLASTY(Left) ARTHROPLASTY(Left) Comments Dr. Choi supervising Last Modified By: Madhav MCGARRY, Skylar Humphries RN, Lorena Horton RN 06/03/22 10:34:44 M 05/28/22 11:42:30 M 05/28/22 11:42:30 Entry 4 Entry 5 Entry 6 Case Attendee Domo Ortega, Srinivasan Humphries RN, Lorena Roth Role Performed Scrub - Primary Staff - Other Public Health Physician - Primary Time In 05/28/22 09:40:00 05/28/22 09:40:00 05/28/22 09:40:00 Time Out 05/28/22 11:38:00 05/28/22 11:38:00 05/28/22 11:38:00 Procedure KNEE TOTAL ROBOT KNEE TOTAL ROBOT KNEE TOTAL ROBOT ARTHROPLASTY(Left) ARTHROPLASTY(Left) ARTHROPLASTY(Left) Comments Scrub second assist Last Modified By: Yandel RN, Lorena Humphries RN, Lorena Horton RN 05/28/22 11:42:30 M 05/28/22 11:42:30 M 05/28/22 11:42:30 Entry 7 Case Attendee Nellie Justice RN Role Performed Staff - Other Time In 05/28/22 09:40:00 Time Out 05/28/22 10:00:00 Procedure KNEE TOTAL ROBOT ARTHROPLASTY(Left) Comments asssit with postioning and prep Last Modified By: Lorena Humphries RN 05/28/22 11:42:30 General Comments: Anil Long rep from [place] in the room [employer] rep from [place] in the room Perioperative Protocols FT Pre-Care Text: Implements protective measures prior to operative or invasive procedure, confirms identity before the operative or invasive procedure, verifies operative procedure, surgical site, and laterality Entry 1 Procedure(s) KNEE TOTAL ROBOT Patient Identity Birthday, ID Band ARTHROPLASTY(Left) Verified (select at Check, Patient least 2): Participation Consents / H and P Anesthesia Consent, Operative Site Present Verified HandP, Surgery/Procedure Marking Verified Consent Surgical Site Yes Laterality Verified Yes Verified Procedure Verified Yes Correct Patient Yes Position Verified Availability Equipment, Implant, Prep Dry n/a Verified (If Medication Applicable) PreOp Antibiotic Yes Time Out Mario Casanova CRNA, Given Participants Theodore Jacques DO, Skylar Corey CST, Troike, Kendall R, Srinivasan Cota Fesenmyer RN, Kathleen M Time Out Complete 05/28/22 10:14:00 Outcomes Met? Yes Last Modified By: Lorena Humphries RN 05/28/22 10:28:35 Post-Care Text: The patient is free from signs and symptoms of injury caused by extraneous objects Allergy Information FT Pre-Care Text: Verifies allergies Entry 1 Allergies Reviewed? Yes Allergies Reviewed Self/Patient With Outcomes Met? Yes Last Modified By: Lorena Humphries RN 05/28/22 10:28:45 Post-Care Text: The patient received appropriate medication(s) safely administered during the perioperative period Surgical Procedures FT Entry 1 Procedure Description Procedure KNEE TOTAL ROBOT Modifiers Left ARTHROPLASTY Surgeon Description LEFT TOTAL KNEE ARTHROPLASTY WITH ROBOT ASSIST Primary Procedure Yes Primary Surgeon Theodore Jacques DO Start 05/28/22 10:16:00 Stop 05/28/22 11:36:00 Anesthesia Type General Surgical Service Orthopedics Wound Class 1 - Clean Last Modified By: Skylar Corey CST 06/03/22 10:34:54 General Case Data FT Pre-Care Text: Classifies surgical wound, implements aseptic technique, initiates traffic control Entry 1 Case Information OR OR 7 FT Case Level Level 6 Wound Class 1 - Clean Specialty Orthopedics ASA Class 3 Preop Diagnosis Left knee osteoarthritis Postop Same As Preop Yes Postop Diagnosis Left knee osteoarthritis Outcomes Met? Yes Last Modified By: Lorena Humphries RN 05/28/22 10:29:47 Post-Care Text: The patient is free from signs and symptoms of infection Skin Assessment (Pre Procedure) FT Pre-Care Text: Implem (more content not included)... Normal [facility] Auto Diffon 05-29-2022 Basophils/100 WBC (Bld) 0.2 % Normal 0.0-2.0 [facility] Comment on above: Order Comment: Order Added by Discern Expert. Performed By: #### 7 [id number] #### [facility] [address] [place] [address] Basophils/Leukocytes Auto (Bld) [Pure # fraction] 0.0 E9/L Normal 0.0-0.2 [facility] Comment on above: Order Comment: Order Added by Discern Expert. Performed By: #### 7 [id number] #### [facility] [address] [place] [address] Eosinophils/100 WBC (Bld) 0.1 % Normal 0.0-8.0 [facility] Comment on above: Order Comment: Order Added by Luis Expert. Performed By: #### 7 [id number] #### [facility] [address] [place] [address] Eosinophils/Leukocytes Auto (Bld) [Pure # fraction] 0.0 E9/L Normal 0.0-0.5 [facility] Comment on above: Order Comment: Order Added by Luis Expert. Performed By: #### 7 [id number] #### [facility] [address] [place] [address] Lymphocytes/100 WBC (Bld) 6.7 % Low 14.0-50.0 [facility] Comment on above: Order Comment: Order Added by Luis Expert. Performed By: #### 7 [id number] #### [facility] [address] [place] [address] Lymphocytes/Leukocytes Auto (Bld) [Pure # fraction] 0.8 E9/L Low 1.0-4.0 [facility] Comment on above: Order Comment: Order Added by Discern Expert. Performed By: #### 7 [id number] #### [facility] [address] [place] [address] Monocytes/100 WBC (Bld) 9.1 % Normal 4.0-14.0 [facility] Comment on above: Order Comment: Order Added by Luis Expert. Performed By: #### 7 [id number] #### [facility] [address] [place] [address] Monocytes/Leukocytes Auto (Bld) [Pure # fraction] 1.1 E9/L High 0.2-1.0 [facility] Comment on above: Order Comment: Order Added by Discern Expert. Performed By: #### 7 [id number] #### [facility] [address] [place] [address] Neutrophils/100 WBC (Bld) 83.9 % High 36.0-75.0 [facility] Comment on above: Order Comment: Order Added by Discern Expert. Performed By: #### 7 [id number] #### [facility] [address] [place] [address] Neutrophils/Leukocytes Auto (Bld) [Pure # fraction] 10.1 E9/L High 2.0-7.5 [facility] Comment on above: Order Comment: Order Added by Discern Expert. Performed By: #### 7 [id number] #### [facility] [address] [place] [address] BUNon 05-29-2022 Urea nitrogen [Mass/Vol] 15 mg/dL Normal 5-21 [facility] Comment on above: Performed By: #### 7 [id number] #### [facility] [address] [place] [address] Blood Bank Slipon 05-29-2022 Blood Bank Slip [id number] 238#[id number]:127 Normal [facility] CBC w/ Auto Diffon Erythrocyte distribution width (RBC) [Ratio] 14.5 % High 10.9-14.2 [facility] Comment on above: Performed By: #### 7 [id number] #### [facility] [address] [place] [address] Hematocrit (Bld) [Volume fraction] 37.9 % Normal 37.7-49.0 [facility] Comment on above: Performed By: #### 7 [id number] #### [facility] [address] [place] [address] Hemoglobin (Bld) [Mass/Vol] 12.6 g/dL Low 13.5-17.5 [facility] Comment on above: Performed By: #### 7 [id number] #### [facility] [address] [place] [address] MCH (RBC) [Entitic mass] 28.4 pg Normal 27.0-34.0 [facility] Comment on above: Performed By: #### 7 [id number] #### [facility] [address] [place] [address] MCHC (RBC) [Mass/Vol] 33.2 g/dL Normal 31.4-36.0 [facility] Comment on above: Performed By: #### 7 [id number] #### [facility] [address] [place] [address] MCV (RBC) [Entitic vol] 85.4 fL Normal 80.0-100.0 [facility] Comment on above: Performed By: #### 7 [id number] #### [facility] [address] [place] [address] Platelet mean volume (Bld) [Entitic vol] 7.8 fL Normal 6.4-10.8 [facility] Comment on above: Performed By: #### 7 [id number] #### [facility] [address] [place] [address] Platelets (Bld) [#/Vol] 264.0 E9/L Normal 150.0-500.0 [facility] Comment on above: Performed By: #### 7 [id number] #### [facility] [address] [place] [address] RBC (Bld) [#/Vol] 4.4 E12/L Normal 4.3-5.9 [facility] Comment on above: Performed By: #### 7 [id number] #### [facility] [address] [place] [address] WBC corrected for nucl RBC Auto (Bld) [#/Vol] 12.0 E9/L High 4.0-11.0 [facility] Comment on above: Performed By: #### 7 [id number] #### [facility] [address] [place] [address] CHEMISTRYOrdered By: SYSTEM SYSTEM on 05-29-2022 Anion gap [Moles/Vol] 13 mmol/L Normal 6 - 16 mEq/L F [facility] Remisol Chloride [Moles/Vol] 99 mmol/L Low 101 - 1 11 mmol/L FT Remisol CO2 [Moles/Vol] 27 mmol/L Normal 21 - 31 mmol/L FT Remisol Creatinine [Mass/Vol] 0.9 mg/dL Normal 0.5 - 1.3 mg/d L FT Remisol GFR/1.73 sq M.predicted among blacks MDRD (S/P/Bld) [Vol rate/Area] mL/min/1.73 m2 Normal >=59mL/min/1.73 m2 [facility] Chem S GFR/1.73 sq M.predicted among non-blacks MDRD (S/P/Bld) [Vol rate/Area] mL/min/1.73 m2 Normal >=59mL/min/1.73 m2 [facility] Chem S Potassium [Moles/Vol] 3.8 mmol/L Normal 3.5 - 5.3 mmol/L [facility] Remisol Sodium [Moles/Vol] 135 mmol/L Normal 135 - 145 mmol/L [facility] Remisol Urea nitrogen [Mass/Vol] 15 mg/dL Normal 5 - 21 mg/dL [facility] Remisol Consent for Anesthesiaon Consent for Anesthesia [id number]:127 Normal [facility] Creatinineon 05-29-2022 Creatinine [Mass/Vol] 0.9 mg/dL Normal 0.5-1.3 [facility] Comment on above: Performed By: #### 1 [id number] #### [facility] [address] [place] [address] Discharge Instructionson Discharge Instructions [id number]:127 Normal [facility] HEMATOLOGYOrdered By: SYSTEM SYSTEM on 05-29-2022 Basophils/100 WBC (Bld) 0.2 % Normal 0.0 - 2.0 % [facility] Basophils/Leukocytes Auto (Bld) [Pure # fraction] 0.0 E9/L Normal 0.0 - 0.2 E9/L [facility] Eosinophils/100 WBC (Bld) 0.1 % Normal 0.0 - 8.0 % [facility] Eosinophils/Leukocytes Auto (Bld) [Pure # fraction] 0.0 E9/L Normal 0.0 - 0.5 E9/L [facility] Lymphocytes/100 WBC (Bld) 6.7 % Low 14.0 - 50.0 % [facility] Lymphocytes/Leukocytes Auto (Bld) [Pure # fraction] 0.8 E9/L Low 1.0 - 4.0 E9/L [facility] Monocytes/100 WBC (Bld) 9.1 % Normal 4.0 - 14.0 % [facility] Monocytes/Leukocytes Auto (Bld) [Pure # fraction] 1.1 E9/L High 0.2 - 1.0 E9/L [facility] Neutrophils/100 WBC (Bld) 83.9 % High 36.0 - 75.0 % [facility] Neutrophils/Leukocytes Auto (Bld) [Pure # fraction] 10.1 E9/L High 2.0 - 7.5 E9/L [facility] HEMATOLOGYOrdered By: Derrick Singh on 05-29-2022 Erythrocyte distribution width (RBC) [Ratio] 14.5 % High 10.9 - 14.2 % [facility] Hematocrit (Bld) [Volume fraction] 37.9 % Normal 37.7 - 49.0 % [facility] Hemoglobin (Bld) [Mass/Vol] 12.6 g/dL Low 13.5 - 17.5 gm/dL [facility] MCH (RBC) [Entitic mass] 28.4 pg Normal 27.0 - 34.0 pg [facility] MCHC (RBC) [Mass/Vol] 33.2 g/dL Normal 31.4 - 36.0 gm/dL [facility] MCV (RBC) [Entitic vol] 85.4 fL Normal 80.0 - 100.0 fL [facility] Platelet mean volume (Bld) [Entitic vol] 7.8 fL Normal 6.4 - 10.8 fL [facility] Platelets (Bld) [#/Vol] 264.0 E9/L Normal 150.0 - 500.0 E9/L [facility] RBC (Bld) [#/Vol] 4.4 E12/L Normal 4.3 - 5.9 E12/L [facility] WBC corrected for nucl RBC Auto (Bld) [#/Vol] 12.0 E9/L High 4.0 - 11.0 E9/L [facility] Inpatient Clinical Summaryon 05-29-2022 Inpatient Clinical Summary [place] [id number] Clinical Summary Person Information: Name: IRWIN MOORE Age: 62 Years : 1960 Sex: Male PCP: Kasia Alicea MD Marital Status: Race: White Ethnicity: Non- or Language: Grenadian Visit Id: Visit Reason: LEFT KNEE OA Speciality: Acuity: Enc Type: Ambulatory/Same Day Surgery Med Service: Surgery Arrival: 05/28/2022 06:18:38 Discharge: Dispo Type: Address: [address] [place] [address] [id number] Provider Notes: Diagnosis: 2:Degenerative arthritis of left knee; 5:Anxiety and depression; 6:BPH (benign prostatic hyperplasia); 7:Depression, unspecified; 8:DVT prophylaxis Problems Active Basal cell carcinoma, face Testosterone deficiency History of TIA (transient ischemic attack) Cataract Chronic cystitis BPH (benign prostatic hyperplasia) Anxiety and depression Hypertensive retinopathy Macular degeneration Diabetes Sciatica Lower extremity edema HTN (hypertension) Smoking Status: Functional Status: Sensory Deficits: History of Falls: Mobility Assistance Prior to Admission: ADLs: Moderate assistance Current Level of Assistance for Self-Care/Mobility: Cognitive Status: Allergies No Known Allergies Measurements: Height: Weight: 107.4 kg Blood Pressure: 122 mmHg / 69 mmHg BMI: Procedures Total knee arthroplasty (05/28/2022) Immunizations No Immunizations Documented This Visit Final Med List: acetaminophen-oxyco done (Percocet 5 mg-325 mg oral tablet) 1-2 tab(s) Oral q4hr. Refills: 0. aspirin (aspirin 81 mg Oral EC Tab) 2 Tablets By Mouth every day for 30 Days. Refills: 0. celecoxib (CeleBREX 100 mg Cap) 1 Capsules By Mouth 2 times a day as needed for pain. Refills: 0. cephalexin (Keflex 500 mg Cap) 1 Capsules By Mouth every 8 hours for 7 Days. Refills: 0. citalopram (CeleXA 20 mg Tab) 1 Tablets By Mouth every day. clonidine (cloNIDine 0.1 mg tab) 2 Tablets By Mouth 2 times a day. docusate (Colace 100 mg Cap) 1 Capsules By Mouth 2 times a day as needed for constipation. Refills: 0. glimepiride (glimepiride 2 mg Tab) 1 Tablets By Mouth every day. glucosamine (glucosamine hydrochloride 1500 mg oral tablet) 1 Tablets By Mouth 2 times a day. hydrALAZINE (hydrALAZINE 100 mg oral tablet) 1 Tablets By Mouth 2 times a day. metformin (metformin 500 mg Tab) 1 Tablets By Mouth 2 times a day. metoprolol (Toprol XL 50 mg Tab-ER) 2 Tablets By Mouth 2 times a day. multivitamin (Multi Vitamin+) tab By Mouth every day. ondansetron (Zofran ODT 4 mg Tab) 1 Tablets By Mouth every 8 hours as needed Nausea/Vomiting. Refills: 0. ramipril (Altace 10 mg Cap) 1 Capsules By Mouth 2 times a day. simvastatin (simvastatin 20 mg Tab) 1 Tablets By Mouth once a day (at bedtime). venlafaxine (venlafaxine 75 mg Cap-ER) 1 Capsules By Mouth every day. Refills: 0. Care Team Members: Attending Physician: Theodore Jacques DO Consulting Physician: Referring Physician: Theodore Jacques DO Follow up: With: Address: When: Theodore Jacques [address] [place] [address] [facility] (1) 06/12/2022 3:15 PM Type [address] 06/17/2022 3:20 PM 06/17/2022 3:40 PM Confirmed URO Office Visit [facility] [place] 09/23/2022 8:00 AM 09/23/2022 8:15 AM Confirmed Patient Education Information: Rodo Jacques - Total Knee Arthroplasty (Custom) Normal [facility] Inpatient Patient Summaryon 05-29-2022 Inpatient Patient Summary IRWIN MOORE :1960 Visit Date:05/28/2022 Inpatient Discharge Instructions Your Care Team Admitting Physician - Theodore Jacques DO Referring Physician - Theodore Jacques DO Reason for Your Visit LEFT KNEE OA Your Diagnosis HTN (hypertension) Degenerative arthritis of left knee Diabetes History of TIA (transient ischemic attack) Anxiety and depression BPH (benign prostatic hyperplasia) Depression, unspecified DVT prophylaxis Tests Performed ABO/Rh Antibody Screen Automated Diff BUN Capillary Glucose POC CBC w/ Auto Diff Creatinine eGFR Lytes XR Knee 1 or 2 Views Left This Is Your Medications List acetaminophen-oxyco done (Percocet 5 mg-325 mg oral tablet) aspirin (aspirin 81 mg Oral EC Tab) celecoxib (CeleBREX 100 mg Cap) cephalexin (Keflex 500 mg Cap) citalopram (CeleXA 20 mg Tab) clonidine (cloNIDine 0.1 mg tab) docusate (Colace 100 mg Cap) glimepiride (glimepiride 2 mg Tab) glucosamine (glucosamine hydrochloride 1500 mg oral tablet) hydrALAZINE (hydrALAZINE 100 mg oral tablet) metformin (metformin 500 mg Tab) metoprolol (Toprol XL 50 mg Tab-ER) multivitamin (Multi Vitamin+) ondansetron (Zofran ODT 4 mg Tab) ramipril (Altace 10 mg Cap) simvastatin (simvastatin 20 mg Tab) venlafaxine (venlafaxine 75 mg Cap-ER) [Image Removed: STOP]Stop taking these medications diclofenac (diclofenac sodium 75 mg Oral EC Tab) Procedure History Total knee arthroplasty (05/28/2022), Transrectal biopsy of prostate using ultrasound (US) guidance (07/21/2014). Discharge Vitals Temperature (Axillary) 36.7 ?C Heart Rate (Monitored) 58 Respiratory Rate 16 Blood Pressure 122/69 Weight 107.4 kg What to do next Instructions From Your Doctor Event Name Event Result Pending Diagnostic Test Results None Pharmacy Information [facility] Previously Scheduled Follow-Up Appointments Thursday 3:20 PM EST With: Lisa MOLINA MD Where: [facility] [place] [facility] [address] [place] [address] [place] [address]- \.br\ New Follow Up Appointments after Discharge\.br \ Follow Up with Theodore Jacques When: 06/12/2022 03:15 PM EST\.br\ Where:\.br\ [address]br\ [place] [address]-\.br\ Business (1)\.br\ Medications\.br \ What How Much When Instructions Next Dose\.br\ New ondansetron (Zofran ODT 4 mg Tab) 1 Tablets By Mouth Every 8 hours as needed for Nausea/Vomiting Pickup at [place] [address] as needed for nausea/vomiting \.br\ Changed aspirin (aspirin 81 mg Oral EC Tab) 2 Tablets By Mouth Every day Duration: 30 Days Pickup at [place] [address] start 05/30\.br\ Changed venlafaxine (venlafaxine 75 mg Cap-ER) 1 Capsules By Mouth Every day Pickup at [place] [address] 05/30 9am\.br\ Unchanged acetaminophen-o xycodone (Percocet 5 mg-325 mg oral tablet) See instructions 1-2 tab(s) Oral q4hr Pickup at [place] [address] as needed for pain\.br\ Unchanged celecoxib (CeleBREX 100 mg Cap) 1 Capsules By Mouth 2 times a day as needed for for pain Pickup at [place] [address] as needed for pain\.br\ Unchanged cephalexin (Keflex 500 mg Cap) 1 Capsules By Mouth Every 8 hours Duration: 7 Days Pickup at [place] [address] 05/29 start when you get home, again before bed\.br\ Unchanged citalopram (CeleXA 20 mg Tab) 1 Tablets By Mouth Every day 05/29 resume\.br\ Unchanged clonidine (cloNIDine 0.1 mg tab) 2 Tablets By Mouth 2 times a day 05/29 bedtime\.br\ Unchanged docusate (Colace 100 mg Cap) 1 Capsules By Mouth 2 times a day as needed for for constipation Pickup at [facility] as needed for constipation\.b r\ Unchanged glimepiride (glimepiride 2 mg Tab) 1 Tablets By Mouth Every day 05/30 morning\.br\ Unchanged glucosamine (glucosamine hydrochloride 1500 mg oral tablet) 1 Tablets By Mouth 2 times a day resume\.br\ Unchanged hydrALAZINE (hydrALAZINE 100 mg oral tablet) 1 Tablets By Mouth 2 times a day 05/29 bedtime\.br\ Unchanged metformin (metformin 500 mg Tab) 1 Tablets By Mouth 2 times a day 05/29 bedtime\.br\ Unchanged metoprolol (Toprol XL 50 mg Tab-ER) 2 Tablets By Mouth 2 times a day 05/29 bedtime\.br\ Unchanged multivitamin (Multi Vitamin+) tab By Mouth Every day 05/30 morning\.br\ Unchanged ramipril (Altace 10 mg Cap) 1 Capsules By Mouth 2 times a day resume\.br\ Unchanged simvastatin (simvastatin 20 mg Tab) 1 Tablets By Mouth Once a day (at bedtime) 05/29 bedtime\.br\ Pharmacy Information\.br \ [facility]: [address], [place] [phone]\.br\ \.br\ What How Much When Comments\.br\ Stop Taking diclofenac (diclofenac sodium 75 mg Oral EC Tab) 1 Tablets By Mouth 2 times a day\.br\ Test Results\.br\ CBC \.br\ BMP \.br\ WBC: 12 E9/L High (05/29/22 05:02:00)\.br\ BUN: 15 mg/dL (05/29/22 05:02:00)\.br\ RBC: 4.4 E12/L (05/29/22 05:02:00)\.br\ Creatinine: 0.9 mg/dL (05/29/22 05:02:00)\.br\ HGB: 12.6 gm/dL Low (05/29/22 05:02:00)\.br\ Sodium Lvl: 135 mmol/L (05/29/22 05:02:00)\.br\ Hct: 37.9 % (05/29/22 05:02:00)\.br\ Potassium Lvl: 3.8 mmol/L (05/29/22 05:02:00)\.br\ MCV: 85.4 fL (05/29/22 05:02:00)\.br\ Chloride: 99 mmol/L Low (05/29/22 05:02:00)\.br\ MCH: 28.4 pg (05/29/22 05:02:00)\.br\ CO2: 27 mmol/L (05/29/22 05:02:00)\.br\ MCHC: 33.2 gm/dL (05/29/22 05:02:00)\.br\ AGAP: 13 mEq/L (05/29/22 05:02:00)\.br\ RDW: 14.5 % High (05/29/22 05:02:00)\.br\ \.br\ Platelet: 264 E9/L (05/29/22 05:02:00)\.br\ \.br\ MPV: 7.8 fL (05/29/22 05:02:00)\.br\ \.br\ Allergies\.br\ No Known Allergies\.br\ Problems\.br\ Ongoing - Any problem that you are currently receiving treatment for.\.br\ Anxiety and depression\.br\ Basal cell carcinoma, face\.br\ BPH (benign prostatic hyperplasia)\.b r\ Cataract\.br\ Chronic cystitis\.br\ Diabetes\.br\ History of TIA (transient ischemic attack)\.br\ HTN (hypertension)\ .br\ Hypertensive retinopathy\.br \ Lower extremity edema\.br\ Macular degeneration\.b r\ Sciatica\.br\ Testosterone deficiency\.br\ Historical - Any problem that you are no longer receiving treatment for.\.br\ Anxiety\.br\ BPH with urinary obstruction\.br \ Dysuria\.br\ Elevated PSA\.br\ Frequent urination\.br\ Hx of mcc use of blood thinners\.br\ Nocturia\.br\ Stroke\.br\ Urinary retention\.br\ Urinary tract infection\.br\ Devices Implanted/Remov ed This Visit\.br\ Notice: You have devices implanted this visit that may not be MRI compatible.\.br \ Implanted\.br\ KNEE TOTAL ROBOT ARTHROPLASTY\.b r\ Knee L\.br\ Triathlon X3 tibial bearing insert-CS 05/28/2022\.br\ Triathlon retaining femoral 05/28/2022\.br\ Triathlon tritanium asymmetric patella 05/28/2022\.br\ Triathlon tritanium tibial component 05/28/2022\.br\ Education Materials\.br\ [facility]\.br\ [place], [place]\.br\ [facility]\.b r\ \.br\ DISCHARGE INSTRUCTIONS:\. br\ TOTAL KNEE ARTHROPLASTY\.b r\ \.br\ INCISION CARE:\.br\ The bandage may be changed by your home health care nurse at 7-10 days postoperatively . A new Aquacel bandage should then be placed. The bandage is waterproof, so you may shower at home.\.br\ \.br\ Steri-strips (paper tape strips) may be applied to the incision if any slight wound separation is noted. These should remain in place for five days and then they may come off in the shower. Please notify the office if any increase in redness, tenderness, drainage, fever, or wound separation is noted beyond this point.\.br\ \.br\ Compression stockings may be helpful if any significant or uncomfortable swelling in the legs is noted postoperatively . Use and removal instructions should be given by physical therapy. If the swelling is below the knee, knee high compression stockings may suffice. If this does cause swelling into the thigh region, waist high compression stockings may be beneficial as well. These can be obtained from most pharmacies, or can be obtained through Home Health. The mild grade compression stockings are best used initially. When applying or removing the compression stocking, you may need assistance.\.br \ \.br\ MEDICATIONS:\.b r\ \.br\ You may resume your home medications at the time of discharge.\.br\ \.br\ Arixtra and Lovenox are mild blood thinners that prevent the development of blood clots in the legs. One of these has been used during your hospitalization . After discharge home you should continue the use of two stomach coated baby Aspirin tablets daily with your largest meal for 30 days after home discharge. Please notify your doctor if you have a stomach sensitivity to Aspirin or history of previous stomach ulcers.\.br\ \.br\ Pain medication has been prescribed as well. You may continue to use the pain medication every four hours as needed. Any narcotic pain medication can cause side effects including stomach upset, constipation, or light-headednes s. You should not drive or operate machinery, or drink alcohol while using the narcotic pain medication. You should not use other pain medications with this prescription pain medication unless further directed by your physician.\.br\ \.br\ PHYSICAL THERAPY\.br\ \.br\ Continue the range of motion and strengthening exercises initiated by Physical Therapy in the hospital.\.br\ \.br\ Continue weight bearing, as ordered, to the operated knee for four to six weeks as directed in Physical Therapy, or until your strength is improved and Physical Therapy will then allow you to progress to full weight. This will be with the use of a walker or crutches initially. After four or six weeks you may [facility] Inpatient Patient Summary [address] [address] Patient Discharge Instructions PERSON INFORMATION Name: IRWIN MOORE Date of : 1960 Current Date: 05/29/2022 11:01:24 PHYSICIANS Admitting Physician: Theodore Jacques DO Primary Care Physician: Kasia Alicea MD PCP Comment: Discharge Diagnosis: 2:Degenerative arthritis of left knee; 5:Anxiety and depression; 6:BPH (benign prostatic hyperplasia); 7:Depression, unspecified; 8:DVT prophylaxis Condition at Discharge: Improved JENNIFER MOOREALD Cory has been given the following list of follow-up instructions, prescriptions, and patient education materials: PATIENT FOLLOW-UP INFORMATION Diet: Discharge Activity: Discharge Restrictions: Wound Care Instructions: Remove Your Dressing In Days Call Your Doctor For: IF UNABLE TO CONTACT YOUR PHYSICIAN AND YOU FEEL IT IS AN EMERGENCY, GO TO THE NEAREST EMERGENCY ROOM OR CALL 911 Home Treatment: Devices/Equipment: Special Services: Additional Instructions: Primary Care Physician to provide the following pending test results: None Follow up: With: Address: When: Theodore Jacques [address] [place], [place] [id number] Business (1) 06/12/2022 3:15 PM In the event that this physician does not participate in your insurance network, please consult with your insurance company to find a nearby participating provider. Type Location Start Finish State GS New 30 GS [place] 06/17/2022 3:20 PM 06/17/2022 3:40 PM Confirmed URO Office Visit [facility] [place] 09/23/2022 8:00 AM 09/23/2022 8:15 AM Confirmed Comment: REYNOLD Crews GERALD A, have received the attached patient education materials/instructi ons and have verbalized understanding: Patient Signature Date Clinican/Nurse Signature Date HERE ARE THE MEDICATION CHANGES THAT OCCURRED DURING YOUR HOSPITAL STAY New Medications [facility], [address], [place] [id number], [phone] ondansetron (Zofran ODT 4 mg Tab) 1 Tablets By Mouth every 8 hours as needed Nausea/Vomiting. Refills: 0. Last Dose: Next Dose: Medications to Continue Taking That Have Changed [facility], [address], [place] [id number], [phone] START: aspirin (aspirin 81 mg Oral EC Tab) 2 Tablets By Mouth every day for 30 Days. Refills: 0. Last Dose: Next Dose: STOP: aspirin (aspirin 81 mg oral capsule) 1 Capsules By Mouth every day. START: venlafaxine (venlafaxine 75 mg Cap-ER) 1 Capsules By Mouth every day. Refills: 0. Last Dose: Next Dose: STOP: venlafaxine (Effexor XR 150 mg Cap-ER) 1 Capsules By Mouth every day. Medications to Continue with No Changes [facility], [address] [facility] [place] [id number], [phone] acetaminophen-oxyco done (Percocet 5 mg-325 mg oral tablet) 1-2 tab(s) Oral q4hr. Refills: 0. Last Dose: Next Dose: celecoxib (CeleBREX 100 mg Cap) 1 Capsules By Mouth 2 times a day as needed for pain. Refills: 0. Last Dose: Next Dose: cephalexin (Keflex 500 mg Cap) 1 Capsules By Mouth every 8 hours for 7 Days. Refills: 0. Last Dose: Next Dose: docusate (Colace 100 mg Cap) 1 Capsules By Mouth 2 times a day as needed for constipation. Refills: 0. Last Dose: Next Dose: Other Medications citalopram (CeleXA 20 mg Tab) 1 Tablets By Mouth every day. Last Dose: Next Dose: clonidine (cloNIDine 0.1 mg tab) 2 Tablets By Mouth 2 times a day. Last Dose: Next Dose: glimepiride (glimepiride 2 mg Tab) 1 Tablets By Mouth every day. Last Dose: Next Dose: glucosamine (glucosamine hydrochloride 1500 mg oral tablet) 1 Tablets By Mouth 2 times a day. Last Dose: Next Dose: hydrALAZINE (hydrALAZINE 100 mg oral tablet) 1 Tablets By Mouth 2 times a day. Last Dose: Next Dose: metformin (metformin 500 mg Tab) 1 Tablets By Mouth 2 times a day. Last Dose: Next Dose: metoprolol (Toprol XL 50 mg Tab-ER) 2 Tablets By Mouth 2 times a day. Last Dose: Next Dose: multivitamin (Multi Vitamin+) tab By Mouth every day. Last Dose: Next Dose: ramipril (Altace 10 mg Cap) 1 Capsules By Mouth 2 times a day. Last Dose: Next Dose: simvastatin (simvastatin 20 mg Tab) 1 Tablets By (more content not included)... [facility] Interdisciplinary Note - King e Manageron 05-29-2022 Interdisciplinary Note - Business Rules Analyst CRM to room to discuss DC planning. Patient is awake, alert and oriented. Patient is from home with his spouse, she is present in room. Patient PCP, home DME and insurance reviewed. Patient is observation for LTKA. Patient will DC home today after PT/OT with orth[facility] program. Patient has FWW, walk in shower, shower chair. He denied any DC needs. Patient was provided CRM contact information, white board updated. Anticipated DC today. CRM following. [facility] Comment on above: Result Comment: Elec tronically Signed By: Ana Gold\.br\Date and Time Signed: 05/29/22 13:15 EST Interdisciplinary Note - Preethi n 05-29-2022 Interdisciplinary Note - OT OT six clicks score: 23/24=home with ortho 360. Pt completes ADL functional transfers including commode transfer CGA using FWW and full body dressing setup A. Pt has necessary DME and his is able to help if need be. No further OT needs. Normal [facility] IntraOperative Documentson 1 07-30-2021 IntraOperative Documents [id number]#1.00CD:127 [facility] IntraOperative Documents [id number]. [id number]#1.00CD:127 [facility] IntraOperative Documents [id number]. [id number]#1.00CD:127 [facility] Lyteson 05-29-2022 Anion gap [Moles/Vol] 13 mmol/L Normal 6-16 [facility] Comment on above: Performed By: #### 1 [id number], [id number], [id number], [id number], [id number], [id number] #### [facility] [address] [place] [address] Chloride [Moles/Vol] 99 mmol/L Low 101-111 Fish er [facility] Comment on above: Performed By: #### 1 [id number], [id number], [id number], [id number], [id number] #### [facility] [address] [place] [address] CO2 [Moles/Vol] 27 mmol/L Normal 21-31 [facility] Comment on above: Performed By: #### 1 [id number], [id number], [id number], [id number], [id number], [id number] #### [facility] [address] [place] [address] Potassium [Moles/Vol] 3.8 mmol/L Normal 3.5-5.3 [facility] Comment on above: Performed By: #### 1 [id number], [id number], [id number], [id number], [id number], [id number] #### [facility] [address] [place] [address] Sodium [Moles/Vol] 135 mmol/L Normal 135-145 [facility] Comment on above: Performed By: #### 1 [id number], [id number], [id number], [id number], [id number], [id number] #### [facility] [address] [place] [address] Patient Education - Texton 1 07-30-2021 Patient Education - Text [place], [place] [facility] DISCHARGE INSTRUCTIONS: TOTAL KNEE ARTHROPLASTY INCISION CARE: The bandage may be changed by your home health care nurse at 7-10 days postoperatively. A new Aquacel bandage should then be placed. The bandage is waterproof, so you may shower at home. Steri-strips (paper tape strips) may be applied to the incision if any slight wound separation is noted. These should remain in place for five days and then they may come off in the shower. Please notify the office if any increase in redness, tenderness, drainage, fever, or wound separation is noted beyond this point. Compression stockings may be helpful if any significant or uncomfortable swelling in the legs is noted postoperatively. Use and removal instructions should be given by physical therapy. If the swelling is below the knee, knee high compression stockings may suffice. If this does cause swelling into the thigh region, waist high compression stockings may be beneficial as well. These can be obtained from most pharmacies, or can be obtained through Home Health. The mild grade compression stockings are best used initially. When applying or removing the compression stocking, you may need assistance. MEDICATIONS: You may resume your home medications at the time of discharge. Arixtra and Lovenox are mild blood thinners that prevent the development of blood clots in the legs. One of these has been used during your hospitalization. After discharge home you should continue the use of two stomach coated baby Aspirin tablets daily with your largest meal for 30 days after home discharge. Please notify your doctor if you have a stomach sensitivity to Aspirin or history of previous stomach ulcers. Pain medication has been prescribed as well. You may continue to use the pain medication every four hours as needed. Any narcotic pain medication can cause side effects including stomach upset, constipation, or light-headedness. You should not drive or operate machinery, or drink alcohol while using the narcotic pain medication. You should not use other pain medications with this prescription pain medication unless further directed by your physician. PHYSICAL THERAPY Continue the range of motion and strengthening exercises initiated by Physical Therapy in the hospital. Continue weight bearing, as ordered, to the operated knee for four to six weeks as directed in Physical Therapy, or until your strength is improved and Physical Therapy will then allow you to progress to full weight. This will be with the use of a walker or crutches initially. After four or six weeks you may then progress to the use of one crutch or a cane. A quad-cane is preferred as this is more stable. Physical therapy as begun in the hospital will continue at home, possibly with the assistant chief engineer of Home Health Physical Therapy or in the hospital as an outpatient. When you have become independent with the physical therapy program, this will then be discontinued as a supervised program and you will be instructed to continue the physical therapy exercises at home. Your exercises are mckinney to successful rehabilitation. You should gain full extension first, hopefully before hospital discharge, and gain 90 degrees flexion by one month post-op. Do the exercises daily, twice if preferred. DRIVING: Please do not drive for 4-6 weeks pending therapy progress. Driving too soon, you are considered an impaired jinriksha driver, and this could be a problem. It is therefore advised not to drive until after your first office visit following surgery. FOLLOW-UP OFFICE VISIT: Theodore Jacques DO [facility] [address] [place], [place] [id number] Reviewed: Normal [facility] Physician Orderon 05-29-2022 Physician Order [id number]#1.00CD:127 [facility] Preoperative Documentson Preoperative Documents [id number]#1.00CD:127 [facility] Progress Note-Physicianon Progress Note-Physician Patient: IRWIN MOORE Age: 62 years Sex: Male : 1960 Associated Diagnoses: None Author: Theodore Jacques DO POD 1 s/p L TKA pain controlled. did well with PT. no CP/SOB/GRADY/dizziness . cindy po. BP poorly controlled, Hospitalist alana appreciated L LE: dressings dry, comp supple, ankle PF/DF intact, neg homans, brisk cap refill, mild swelling to knee WBC 12 Hgb 12.6 Hct 37.9 Plt 264 BMP WNL post op xrays reviewed yesterday. prosthesis in satisfactory position Plan: - D/C home - instructed to f/u with PCP regarding HTN Objective Vital Signs 05/29/2022 8:25 EST SpO2 95 % 05/29/2022 8:25 EST Temperature Axillary 36.7 DegC 05/29/2022 8:00 EST Respiratory Rate 16 br/min Systolic Blood Pressure 168 mmHg HI Diastolic Blood Pressure 90 mmHg Normal [facility] Comment on above: Result Comment: Elec tronically Signed By: Theodore Jacques DO\.br\Date and Time Signed: 05/29/22 13:41 EST eGFRon 05-29-2022 GFR/1.73 sq M.predicted among blacks MDRD (S/P/Bld) [Vol rate/Area] mL/min/{1.73_m2} Normal >=59 [facility] Comment on above: Order Comment: Order added by Discern Expert. Result Comment: eGFR is race adjusted. AA=. Performed By: #### 1 [id number], [id number], [id number], [id number], [id number] #### [facility] [address] [place] [address] GFR/1.73 sq M.predicted among non-blacks MDRD (S/P/Bld) [Vol rate/Area] mL/min/{1.73_m2} Normal >=59 [facility] Comment on above: Order Comment: Order added by Discern Expert. Result Comment: Manager Services la kidney disease could be indicated at eGFR's of less than 60 mL/min/1.73m2. Kidney failure is indicated at less than 15 mL/min/1.73m2. Performed By: #### 1 [id number], [id number], [id number], [id number], [id number], [id number] #### [facility] [address] [place] [address] ABO/Rhon 05-28-2022 ABO/Rh Negative Invalid Interpretation Code [facility] Comment on above: Performed By: #### 1 [id number], [id number], [id number] ####[facility] [address] [place] [address] ABO/Rh History Checkon 05-28 ABO/Rh History Check Verified Hx Blood Type Normal [facility] Comment on above: Performed By: #### 1 [id number], [id number], [id number], [id number] ####[facility] [address] [place] [address] ABSCon 05-28-2022 ABSC Gel Interp Negative Normal [facility] Comment on above: Performed By: #### 1 [id number], [id number], [id number], [id number] ####[facility] [address] [place] [address] BLOOD BANKOrdered By: Sarah Odell on 05-28-2022 ABO/Rh Interp Negative Invalid Interpretation Code [facility] BB Subsection ABSC Gel Interp Negative (05/28/22 7:33 AM) Normal [facility] BB Subsection Blood Bank ID#on 05-28-2022 BBID# [id number] Invalid Interpretation Code [facility] Comment on above: Performed By: #### 1 [id number], [id number], [id number], [id number] ####[facility] [address] [place] [address] CHEMISTRYOrdered By: Lab ROP User on 05-28-2022 Glucose [Mass/Vol] 121 mg/dL High 55 - 99 mg/dL FT C POC Subsection Comment on above: Result Comment: Waldemar devine RN/ POC Device SN [id number] Invalid Interpretation Code [facility] POC Subsection POC User ID [id number] Invalid Interpretation Code [facility] POC Subsection POC Username ANGEL NAVA Invalid Interpretation Code [facility] POC Subsection Capillary Glucose POCon 05-15 Glucose [Mass/Vol] 121 mg/dL High 55-99 [facility] Comment on above: Result Comment: Waldemar devine RN/ Performed By: #### 2 [id number] #### [facility] [address] [place] [address] Consent for Treatmenton 05-15 Consent for Treatment [id number] [id number]#1.00CD:127 Normal [facility] H&P Updateon 05-28-2022 H&P Update [id number]#1.00CD:127 Normal [facility] Main OR PACU I Recordon 05-15 Main OR PACU I Record PACU Phase I Document Type FT Summary Primary Physician: Theodore Jacques DO Finalized Date/Time: 05/28/22 12:20:50 Pt. Name: IRWIN MOORE/Sex: 1960 Male Med Rec #: [id number] Physician: Theodore Jacques DO Financial #: [id number] Pt. Type: A Room/Bed: 10/13 Admit/Disch: 05/28/22 06:18:38 - Institution: Case Times PACU I FT Pre-Care Text: Identifies barriers to communication and implements measures to provide psychological support Develops individualized plan of care, and ensures continuity of care Maintains patient's dignity and privacy, and maintains patient confidentiality Identifies and reports philosophical, cultural, and spiritual beliefs and values Identifies individual values and wishes concerning care Implements aseptic technique, and administers prescribed antibiotic therapy and immunizing agents as ordered Evaluates postoperative tissue perfusion Implements thermoregulation measures, and monitors body temperature Evaluates postoperative respiratory status Evaluates postoperative cardiac status Evaluates postoperative neurological status Assesses pain control, collaborated in initiating patient-controlled analgesia and implements alternative methods of pain control Verifies allergies, administers prescribed medications and solutions, evaluates response to medications Entry 1 In PACU I 05/28/22 11:40:00 Discharge from PACU 05/28/22 12:10:00 I Outcomes Met? Yes Last Modified By: JOJO MONTGOMERY RN 05/28/22 12:20:38 Post-Care Text: The patient demonstrates knowledge of the expected response to the operative or invasive procedure The patient's care is consistent with the individualized perioperative plan of care The patient's right to privacy is maintained The patient's value system, lifestyle, ethnicity, and culture are considered, respected, and incorporated into the perioperative plan of care The patient participates in decisions affecting his or her perioperative plan of care The patient is free from signs and symptoms of infection The patient has wound/tissue perfusion consistent with or improved from baseline levels established preoperatively The patient is at or returning to normothermia at the conclusion of the immediate postoperative period The patient's respiratory function is consistent with or improved from baseline levels established preoperatively The patient's cardiovascular status is consistent with or improved from baseline levels established preoperatively The patient's cardiovascular status is consistent with or improved from baseline levels established preoperatively The patient demonstrates and/or reports adequate pain control throughout the perioperative period The patient received appropriate medication(s), safely administered during the perioperative period Acuity Level PACU I FT Entry 1 Start Time 05/28/22 11:40:00 Stop Time 05/28/22 12:10:00 Acuity Level Acuity Level I Last Modified By: JOJO MONTGOMERY RN 05/28/22 12:20:47 Finalized By: JOJO MONTGOMERY RN Document Signatures Signed By: JOJO MONTGOMERY RN 05/28/22 12:20 Normal [facility] Monitor Recordon 05-28-2022 Monitor Record [id number]#[id number]:127 Normal [facility] Monitor Record [id number]#1.00CD:127 Normal [facility] Operative Reporton Operative Report Patient: IRWIN MOORE Age: 62 years Sex: Male : 1960 Associated Diagnoses: None Author: Theodore Jacques DO DATE OF SURGERY: 05/28/2022 SURGEON: Theodore Jacques D.O. DEVELOPMENT REPRESENTATIVE: Skylar Corey CFA PREOPERATIVE DIAGNOSIS: Advanced degenerative osteoarthrosis, left knee POSTOPERATIVE DIAGNOSIS: Advanced degenerative osteoarthrosis, left knee OPERATION: Left total knee arthroplasty utilizing [employer] robotic arm assistance ANESTHESIA: Spinal + regional block OIL WELL PUMPER: Ag Choi DO and Mario Casanova CRNA IMPLANTS USED: Shine Triathlon Total Knee System 1. size 5 cruciate retaining cementless femur 2. Size 10 mm X3 CS polyethylene 3. Size 6 primary Tritanium cementless tibial baseplate 4. Size 35 mm asymmetric Tritanium cementless patella OPERATIVE INDICATIONS: Irwin is a 62 year old male who has had persistent left knee pain despite numerous conservative measures. His pain interferes with his activities of daily living, ability to sleep at night, and quality of life. He agreed to proceed with the above procedure after a discussion of the risks, benefits, complications, alternatives, and expectations. Please see office notes for further details. The patient's surgery was preplanned utilizing CT scan and [employer] software. This included the planned implant sizes and positions, bone resection, and ligament balancing. Modifications to the plan were made intraoperatively as appropriate. PROCEDURE: The correct operative site was identified and marked in the preoperative holding area. The patient was administered intravenous antibiotics in accordance with SCIP Protocol. He was also given a gram of tranexamic acid intravenously about 15 minutes prior to incision. He was transported to the Regional Anesthetic Block Room and administered a regional anesthetic nerve block by the anesthesiologist. I requested the regional block to assist with intraoperative and postoperative pain control. He was transported to the Operating Room and administered spinal anesthetic. He was placed supine on the operating room table. A well padded tourniquet was applied to the operative upper thigh. The left upper extremity was secured across the patient's torso. The operative lower extremity was then prepped and draped in the usual sterile fashion. The foot was placed into a padded hilliard and secured in the [place] knee positioner. Surgical time-out was performed with all required personnel present. The limb was exsanguinated with an Esmarch. Tourniquet was inflated to 300 mm Hg. A longitudinal incision over the anterior knee was made. Medial and lateral skin flaps were developed. Dissection was carried down through the subcutaneous layers. Medial parapatellar arthrotomy was performed and normal appearing joint fluid was encountered and suctioned. Irrisept solution was poured into the joint. The intermeniscal ligament was then cut and soft tissue at the medial tibial plateau was peeled off of the bone with Bovie electrocautery. The fat pad was sharply excised. The tibial pins for the tibial array were placed approximately 5 finger breadths distal to the tibial tubercle along the medial tibial shaft. The tibial pins were placed outside of the incision through 2 small stab incisions. The tibial array was placed onto the pins and secured. The patella was everted and the knee was flexed. Tourniquet was deflated at 8 minutes and adequate perfusion was noted to return to the extremity. Areas of active bleeding were cauterized with the Bovie and Aquamantys. The distal femoral pins for the femoral array were placed in the medial femoral condyle. The femoral array was affixed to the pins. The registration device was then placed into the distal femur just distal to the array pins along the medial femoral condyle. The tibial registration device was placed along the medial tibia within the surgical wound distal to the planned tibial resection. The hip center, medial and lateral malleoli were registered. Registration points along the distal femur and proximal tibia were captured. Osteophytes along the distal femur and proximal tibia were removed with a rongeur. Range of motion of the knee was then assessed with the computer. The patient had 4 degrees of recurvatum with 7 degrees of varus. Preliminary ligament balancing was performed with the tensioning spoons in both flexion and extension and these values were captured by the computer. Adjustments to the planned resection were made to balance the ligaments. The self-retaining medial and lateral retractors were then placed and secured to the leg hilliard. Bone resection was then performed with computer guidance using the saw attached to the WARD robotic arm. Femoral cuts were made including anterior, posterior, and chamfer cuts. The tibial cut was then made in the same fashion. The resected bone fragments were removed with osteotomes (more content not included)... Normal [facility] Comment on above: Result Comment: Elec tronically Signed By: Theodore Jacques DO\.br\Date and Time Signed: 05/28/22 13:51 EST Outpatient Surgery Discharge Instructionon 05-28-2022 Outpatient Surgery Discharge Instruction [address] [address] Patient Discharge Instructions PERSON INFORMATION Name: IRWIN MOORE Date of : 1960 Current Date: 05/28/2022 09:41:28 PHYSICIANS Admitting Physician: Theodore Jacques DO Discharge Diagnosis: Degenerative arthritis of left knee IRWIN MOORE has been given the following list of follow-up instructions, prescriptions, and patient education materials: IF UNABLE TO CONTACT YOUR PHYSICIAN AND YOU FEEL IT IS AN EMERGENCY, GO TO THE NEAREST EMERGENCY ROOM OR CALL 911 IREYNOLD GERALD A, have received the attached patient education materials/instructi ons and have verbalized understanding: May we do a follow up call? Yes No I was present when discharge instructions were given Patient Signature Date Clinican/Nurse Signature Date Follow up: With: Address: When: Theodore Jacques [address] [place] [id number] Business (1) 06/12/2022 3:15 PM Type Location Start Finish State [facility] 3:20 PM 06/17/2022 3:40 PM Confirmed URO Office Visit [facility] TOBY Osorio 09/23/2022 8:00 AM 09/23/2022 8:15 AM Confirmed Pharmacy Information: You may receive a survey from [facility] asking you to rate your care experience. Your feedback is important and will help us understand what we do well and how we can improve the quality of care we provide to you, your loved ones and our community. It?s an honor to serve you. Thank you for choosing [facility] HERE ARE THE MEDICATION CHANGES THAT OCCURRED DURING YOUR HOSPITAL STAY Medications to Continue Taking That Have Changed Other Medications START: glimepiride (glimepiride 2 mg Tab) 1 Tablets By Mouth every day. Medications to Continue with No Changes [facility] [place] [id number], [phone] acetaminophen-oxyco done (Percocet 5 mg-325 mg oral tablet) 1-2 tab(s) Oral q4hr. Refills: 0. aspirin (aspirin 81 mg Oral EC Tab) 2 Tablets By Mouth every day for 30 Days. Refills: 0. celecoxib (CeleBREX 100 mg Cap) 1 Capsules By Mouth 2 times a day as needed for pain. Refills: 0. cephalexin (Keflex 500 mg Cap) 1 Capsules By Mouth every 8 hours for 7 Days. Refills: 0. docusate (Colace 100 mg Cap) 1 Capsules By Mouth 2 times a day as needed for constipation. Refills: 0. Other Medications aspirin (aspirin 81 mg oral capsule) 1 Capsules By Mouth every day. citalopram (CeleXA 20 mg Tab) 1 Tablets By Mouth every day. clonidine (cloNIDine 0.1 mg tab) 2 Tablets By Mouth 2 times a day. diclofenac (diclofenac sodium 75 mg Oral EC Tab) 1 Tablets By Mouth 2 times a day. glucosamine (glucosamine hydrochloride 1500 mg oral tablet) 1 Tablets By Mouth 2 times a day. hydrALAZINE (hydrALAZINE 100 mg oral tablet) 1 Tablets By Mouth 2 times a day. metformin (metformin 500 mg Tab) 1 Tablets By Mouth 2 times a day. metoprolol (Toprol XL 50 mg Tab-ER) 2 Tablets By Mouth 2 times a day. multivitamin (Multi Vitamin+) tab By Mouth every day. ramipril (Altace 10 mg Cap) 1 Capsules By Mouth 2 times a day. simvastatin (simvastatin 20 mg Tab) 1 Tablets By Mouth once a day (at bedtime). venlafaxine (Effexor XR 150 mg Cap-ER) 1 Capsules By Mouth every day., mood PATIENT EDUCATION INFORMATION Instructions: [place], [place] [facility] DISCHARGE INSTRUCTIONS: TOTAL KNEE ARTHROPLASTY INCISION CARE: The bandage may be changed by your home health care nurse at 7-10 days postoperatively. A new Aquacel bandage should then be placed. The bandage is waterproof, so you may shower at home. Steri-strips (paper tape strips) may be applied to the incision if any slight wound separation is noted. These should remain in place for five days and then they may come off in the shower. Please notify the office if any increase in redness, tenderness, drainage, fever, or wound separation is noted beyond this point. Compression stockings may be helpful if any significant or uncomfortable swelling in the legs is noted postoperatively. Use and removal instructions should be given by physical therapy. If the swelling is below the knee, knee high compression stockings may suffice. If this does cause swelling into the thigh region, waist high compression stockings may be beneficial as well. These can be obtained from most pharmacies, or can be obtained through Home Health. The mild grade compression stockings are best used initially. When applying or removing the compression stocking, you may need assistance. MEDICATIONS: You may resume your home medications at the time of disch (more content not included)... Normal [facility] XR Knee 1 or 2 Views Lefton 05-28-2022 XR Knee 1 or 2 Views Left Exam Date/Time: 05/28/2022 11:53 EST Reason for Exam: Post-op evaluation;Other (please specify) Report EXAMINATION: XR Knee 1 or 2 Views Left, 05/28/2022 11:41 AM CLINICAL HISTORY: Post-op evaluation COMPARISON: Lower extremity CT from 05/06/2022 FINDINGS: Status post complete left knee replacement. The prostheses are in anatomic alignment. Expected postoperative soft tissue edema and subcutaneous air are noted. There are surgical skin sherry in place. IMPRESSION: Status post complete left knee replacement. FINAL REPORT Dictated: 05/28/2022 2:27 pm Steven Baker MD, V. Signed (Electronic Signature): 05/28/2022 2:27 pm Signed by: Steven Baker MD, V. Transcribed by: MANPREET Technologist: JUAN DANIEL [facility] Consent for Procedure/Surger yon 05-27-2022 Consent for Procedure/Surgery [id number]#[id number]:127 [facility] Coding Summary.on 05-09-2022 Coding Summary. CD:[id number] HJs2bKa+PGhlYWQ+PE1 UWZYsK70abNVpjL2ZT6 xPHK9GLIKEQLXSZE1MB R1dnZG7NCgaO5EykyEt BjtofHLrOR21JOe9VZH 3eJikACdvdI9agXPgS3 n4RiZoNT37dS67MTqtM KTxIvU6EcCcfjdxmJWe S1ewHzDfiQGzMmu+PHR hYmxlIHdpZHRoPScxMD OmZsTkrXpfLV5yJy9fM GVyLWNvbGxhcHNlOiBj z9ulACMrUXawMR8edGn bB3CnzUT3XSKxv0l8Sw 48dHI+ABNjVBV5jAiqR Zfwi997RlUmg3kfVGM2 lRYjTRulAHQ4V92iu8C 6CQDzRXNiVTG2zIF5yS 6haJiekityL6LlrHVfM eI6JNE3eYPplO1ilIah gbcptA7mXmi+G79DGX3 ZHKCFMX4RYnr4L5WuXx wvdHI+LQ89BOPyFH46g DZlpTOtx0bolLi1UeDn VDLgHZI1qSitZFaxs6E eBSOoC84fnCPgt5P8YN HuiMuzlQYqGiRbjFI8p P2tZHpnyybgf5uopxdd Wgifg9dvzr85xV46D79 cDVeiCYMeFUR7AWStIL SxbSvjov4gdQ2cAg4+I Npmn9sfu4wxnMs6MkTy BAAjwpFamZufDIP2x3B tTv32A0AsmMlno5TdXp g3qp05jONez5X7aHV7X LnhEHUzqX2iHKyuSkG3 NMFxAeQpeL13mYWxNKs lNi2khUgshUsgBU6zAW UiyrlfLYKmnK9yKDLhj PLnpRrxQV1bUKKowftk l669LmXsXBW7XTDweUY qZ6EduX4fXiPsDQGwPJ UaX9HuvBGeTThwA870X DheZkI7OOQrztLsK0Yn IENttHeqMvX2r1K9Gr0 Hi7FovhxrRKK9OWgzUF DuCpS8HcRjKfA5V4VmH az9ICUzaPswUY6oC5Ls VFUnfmxdmfjrgEK5DES aEOJdcK28rBWoQZptMq 7dm9N7a194YMIbPNWwd P44Zd1vbLcbQDUefRJY uH1gtnuhq1zbjtmdNsZ vOFIwQCz9WIm0IABxrS veBhVdVSQ8JqA0QXZ7d ORluT6iiUfczjgsgI8j Oyc+B03zcJ6nYCT9ESJ 1wldaFPCgefVkRG89GM 42A3GySoysvORxlNE+P NTyunZhqVwhLI9aZfOz z2cas3OcRJnkY8MzRVO eYHnzQvt7NPFfAGY9vB N8hI0vYDVyYWone4S2m TE2V0IdhlGloo1ll0dr FMYgWWoxY07boVOki0I 3MTLtyVG3NPWfhBjnSf IczT24Cyy+PGNvbGdyb 2KdQhyft9ybr4xikTd7 IjMwJSIgdmFsaWduPSJ 2l4GjLg07F73nDXajJI RoPSIxNSUiIHZhbGlnb u3vqW7pXx7+PGNvbCB3 fLN0qN2mNZGrTnY6ITm bI543HcXzbRRsFcboy0 nmr4iciKm8MiHqJTZnz nMvgOzpLUG9n7ZiFf60 N58hFUezFIFhXDVxNNM tSNFyxBozad0zcE8wWp 8+NY2nl8oced78oQ19k HI+YOCaRRP3oUtaCYlh ZXZciL7rVFsbDhP0ZZF eGpIyyE83xFAzTRtmSb 8gdPswvOqjTJ5xEHBbu bwid888ErHdc2qnVVXz oJDqUXynGDU9O00ta4K 8HYLoPPHwSNH9oZD6cM 1hbGlnbjogbGVmdDsgd jLoiThsZErcVOhdO125 IHRvcDsnPlBhdGllbnQ zWtHjZJl9X5XlAjh0PR FzfYbaWH5bkJCwTHssK t4ecUubiYpkUZ1hVCJr bovug144HaYwc8yaRHI uaMFaGUgdEFR5N05dq0 C9XLTgIMXyQAC3yIF2p M1djDgmlepzjJLuyXup ajEgmGifVFugWQizC58 6IHRvcDsnPkJpcnRoIE BwsRN0AH55GY83pMGiw 5T4pWQ8Q0QdXDKqazze tmwvhXK3KQYyFFXuaR7 7Px6siDffCe6hCFXrJM N9BZNyxEHzS6QloD0oS kEdJGLcWYUzE7VhaOQv BKliK858LIqrAbJ8IOG chrItU5ZbMOLfxLesQj P7y2J6Tx8BF3X7NC10Z I72bZSss4E7eTS2R9Mg DPJucceseuyhoYA2ZPU uDKEljW58Yo8miAmeMs 0rSKHpKWM2OOFovNYxO 2KeaS4yVwEfKDTfWDCz X1AovHPwWPrlP987OAm cOtS1QICurcAmM9DuBS DprRolEwG0d2S1Ru7WL Zb7ZE52YB10wTIes5S9 mGC8V2YsBDCkgorlvsk zwBO0WYWzSUSslV94Sf 0euRcmNb3rTFPuIIJ0Z PPkzVQwU4RmaV2gExOz TYYmHDHlK6WlwHXpZTv kU437GCsqYlV7PYGtxd GuV0IwYHMduBopWnA9y 4N7El8DPLXqPZ93ZSG9 aZQ3JF16AR14D3NsDeo vdGFibGU+PHRhYmxlIH dpZHRoPScxMDAlJyBzd HfgGV0tCb9iVCIdYWLl yPygxWThQeOrh7orTAG fSDsxJQ4baJzfP7IqiA V7ZZQan8h6Sx03Z30xC 3JvdXA+IXBsxMJ2nLP1 cC8vGpLnYvN3ECcyD23 6RwNrxBKrDneua7peo0 pyhDu5NjN8PQIevxEyb IikMJJ6y8VyAc15R79g IHdpZHRoPSIxNSUiIHZ hiKkvqy9bqO6lAw5+PG TbuJJ5hCA5nL8iBmEnQ iJ2LRxgM444KlArzGHg Lhgyi0xwk8wndHn6FpZ fAQQgblZtxJeyCXF7h0 GsHs55A7CkbSern1KqV bp6yc04mOJch6P0fGK1 R6YdJVSizykubDJarKq cVF0jCBPvoaszXVWivU 4gWAAkR3a5DjLaMdK2A CubI8CzpeD2GIVbuAUd VXhfRRA5Q18xw7Y4GBY xAQCtGGM3qXF8yJ7bbU lnbjogbGVmdDsgdmVyd RjzITekLImyW652QNFu rYixHNIudN1rQMQpnNV qmLrnEG1uBVHzssgqQb rYIH9QDjegV9XAXKpNK TU4M5CvKel3ZNAqgMij AM6crSHyRTwpRx8bcXd yuXkkXD9dHAAdccobKE QkiF5zRKMzaXMizKxdZ W7qEIZckstwv218HjEo PDH5XDNiwRGyU5MubJ3 oJdIwXPMyXJRaV1YthJ VgIActY011SCkcPcL1L VBsbxHsK7XyLDRfbIxh OmS2t7R1In0cLc1oQT0 cULF6FD83IK94cCTye5 C7eJX0I0IqHAObsqdcw hvcfNA2QPYiBEIpgR58 gXLvUZmhYs7vy6O0c92 4ZFXgAODoiX62Bu7ljJ goVCUfkAXQkF5dfbegs 5lvalgzKfAmGUVnGEs2 NVw7KATwoAnxOqOlSOF 3IiO7JMR2jYEauA9byO gxuokbqD5fHlw+NjMgW VOvzoB7Z6RlAjp3YHVa sVlwRO1udSGcRDhlYj6 biUydzDbvJJ7jPHXncq ebXYFqhT9nFXGppXSmr HxyJK5oOIOfioyci747 PmRkPQM1ENPxwERuK6Y kjY0lFfJwOUEtWUQgJ9 ZzbNCcMNkzH822MUgqY hS6XJAtfzAzL6HyMAZq nXnlVlO9d3W9Hm7XUQq eDD28OZ42mYSrd9W9oV E2F9ItTBPapkgdlnoaf HE9YNAfMRDbcL11dMAw OGywSo4cp5J8y652VPR jPRPwtC15Io2npKcvLX TvoAFAtV1vqyyhx0yvi qpeZdAwVKYeFYg1FOw0 KMGspNwxIiZhBMG5YdJ 6RDD7gLSroR4gfNitdn gwwE3qTma+F3C4dYE3v WVudDwvdGQ+TS82xb02 P1CnMclzVlx3CKMgMIV 4gGN8vR8rNVWfARhfs2 U8iAF3B9AgssBktm1hh 2ztPCLmQHlcF42eoGYf d9P2IBHigWB6EMQktVo vRkQatK81Edl+PGNvbG pjq6JlVnuoc0jka6dco Pm3KaLzVBUzqvRsjDmp PCO6t6CfPr34J68tAZw pZHRoPSIzMCUiIHZhbG xipl6ivZ1fZv6+PGNvb VJ3cRE2uD1qTvSaDkW6 QGcnA593WzQhoACiNza gk4orn6kooQx8TkLqBJ PyavXdkEafZYP8i6ZdY s96D6YbtWtsj6HvNfk3 gf75dRQdm5V9yNL1E6O hZGRpbmctbGVmdDogMC 0tZLBinodfUXOpbD9eS NDxU8p7BxLfFzQ4YObt L1ZykvY8NRPmcGUtJBJ ryCJRoR9uhwtvz1moww dpZvGpOWQxXXc5DBc7W HAmzVzrQtCvTFG5QrZ3 WEJ6xWMgpM7igLewnan vlF0iLph+PAe2h2ayzJ SlQA3buBC2VL19QU78p CUmw6P3dVN8H8GzJLOm gnzslrksaUH5AVTmNIV meV96Ug8kkWnzZz2kXT LfTYJ0TGConFBrS8Irq J5kXyEbAJVbCJIkE5Ic gYFeVZfhO838VHjfHmP 0VDGhyvYyA0KeCDNquZ dsGrE5b0H5Ud4FRM18M B28QJ86tFPwz7U6mTD8 H2VtAYPuvfvcsiypqCU 7PHRyURGrpU68Ja2tkP btVx9xWLUwXBV1UNVld DHeB3JheC5zJuMbYBVm OTSsS2BmkBIvDLuqB95 6MAveQoI4AXLhekTsN9 UnIBTbcSjmWxG0l3E6Q e1BTk46XM03UV11tVBm x8D2kFQ4X7EmGQDykvv aqaoutFI6PEGoIASbjW 40Nb7wkRmrSr4zPWOgU IG0EFKgdTRoU2OhzQ7n AiTkBOMbBFAdR9LpxYV hHRdgI015DSsrHyZ5CK WyxyUvX0QfWHEsmBbkP eN2q7F5Ew9JEFarecy7 H1BuTucsrYR+SL75VIH xSO93cMWbjFHtx1jciC w1RpUcBBUiUPS7fGmfQ Xbde0NaBWJcP00dtMZk c2U6 (more content not included)... Normal [facility] CT Lower Extremity w/o Contr ast Lefton 05-07-2022 CT Lower Extremity w/o Contrast Left Exam Date/Time: 05/06/2022 09:23 EST Reason for Exam: LEFT KNEE OA Report IMPRESSION: LEFT KNEE OSTEOARTHRITIS. EXAMINATION: CT Lower Extremity w/o Contrast Left HISTORY: Left knee osteoarthritis TECHNIQUE: Multiple contiguous axial images were obtained of the left lower extremity utilizing Ward protocol. Multiplanar reformats were obtained. COMPARISON: None available FINDINGS: Degenerative changes including joint space narrowing and marginal osteophyte formation of the left knee. No acute fracture. Small joint effusion. Wang's cyst measures up to approximately 9.5 cm in craniocaudal length. Visualized myotendinous structures appear intact. Fat-containing left inguinal hernia partially visualized. All CT scans at this facility use dose modulation, iterative reconstruction, and/or weight based dosing when appropriate to reduce radiation dose to as low as reasonably achievable. FINAL REPORT Dictated: 05/07/2022 8:51 am Nathan Burciaga DO Signed (Electronic Signature): 05/07/2022 8:51 am Signed by: Nathan Burciaga DO Transcribed by: MANPREET Technologist: LIAM Normal [facility] ABO/Rh Retypeon 05-06-2022 ABO/Rh Retype Interp Negative Invalid Interpretation Code [facility] Comment on above: Performed By: #### 1 [id number] ####[facility] [address] [place] [address] BLOOD BANKOrdered By: Sarah Odell on 05-06-2022 ABO/Rh Retype Interp Negative Invalid Interpretation Code [facility] BB Subsection BUNon 05-06-2022 Urea nitrogen [Mass/Vol] 21 mg/dL Normal 5-21 [facility] Comment on above: Performed By: #### 7 [id number] #### [facility] [address] [place] [address] CBC w/Indiceson 05-06-2022 Erythrocyte distribution width (RBC) [Ratio] 13.9 % Normal 10.9-14.2 [facility] Comment on above: Performed By: #### 7 [id number] #### [facility] [address] [place] [address] Hematocrit (Bld) [Volume fraction] 37.6 % Low 37.7-49.0 [facility] [facility] Comment on above: Performed By: #### 7 [id number] #### [facility] [address] [place] [address] Hemoglobin (Bld) [Mass/Vol] 13.5 g/dL Normal 13.5-17.5 [facility] Comment on above: Performed By: #### 7 [id number] #### [facility] [address] [place] [address] MCH (RBC) [Entitic mass] 29.2 pg Normal 27.0-34.0 [facility] Comment on above: Performed By: #### 7 [id number] #### [facility] [address] [place] [address] MCHC (RBC) [Mass/Vol] 35.8 g/dL Normal 31.4-36.0 [facility] Comment on above: Performed By: #### 7 [id number] #### [facility] [address] [place] [address] MCV (RBC) [Entitic vol] 81.7 fL Normal 80.0-100.0 [facility] Comment on above: Performed By: #### 7 [id number] #### [facility] [address] [place] [address] Platelet mean volume (Bld) [Entitic vol] 7.1 fL Normal 6.4-10.8 [facility] Comment on above: Performed By: #### 7 [id number] #### [facility] [address] [place] [address] Platelets (Bld) [#/Vol] 221.0 E9/L Normal 150.0-500.0 [facility] Comment on above: Performed By: #### 7 [id number] #### [facility] [address] [place] [address] RBC (Bld) [#/Vol] 4.6 E12/L Normal 4.3-5.9 [facility] Comment on above: Performed By: #### 7 [id number] #### [facility] [address] [place] [address] WBC corrected for nucl RBC Auto (Bld) [#/Vol] 7.0 E9/L Normal 4.0-11.0 [facility] Comment on above: Performed By: #### 7 [id number] #### [facility] [address] [place] [address] CHEMISTRYOrdered By: SYSTEM SYSTEM on 05-06-2022 Anion gap [Moles/Vol] 9 mmol/L Normal 6 - 16 mEq/L [facility] Remisol Chloride [Moles/Vol] 104 mmol/L Normal 101 - 1 11 mmol/L [facility] Remisol CO2 [Moles/Vol] 27 mmol/L Normal 21 - 31 mmol/L [facility] Remisol Creatinine [Mass/Vol] 0.8 mg/dL Normal 0.5 - 1.3 mg/d L [facility] Remisol GFR/1.73 sq M.predicted among blacks MDRD (S/P/Bld) [Vol rate/Area] mL/min/1.73 m2 Normal >=59mL/min/1.73 m2 [facility] Chem S GFR/1.73 sq M.predicted among non-blacks MDRD (S/P/Bld) [Vol rate/Area] mL/min/1.73 m2 Normal >=59mL/min/1.73 m2 [facility] Chem S Glucose post fast [Mass/Vol] 108 mg/dL High 55 - 99 mg/dL [facility] Remisol Potassium [Moles/Vol] 4.0 mmol/L Normal 3.5 - 5.3 mmol/L [facility] Remisol Sodium [Moles/Vol] 136 mmol/L Normal 135 - 145 mmol/L [facility] Remisol Urea nitrogen [Mass/Vol] 21 mg/dL Normal 5 - 21 mg/dL [facility] Remisol CHEMISTRYOrdered By: Larry Gamez on 05-06-2022 HbA1c (Bld) [Mass fraction] 5.3 % Normal <=5.9% [facility] ChemAutoSS Consent for Treatmenton 04-16 Consent for Treatment [id number]#1.00CD:127 Normal [facility] Creatinineon 05-06-2022 Creatinine [Mass/Vol] 0.8 mg/dL Normal 0.5-1.3 [facility] Comment on above: Performed By: #### 7 [id number] #### [facility] [address] [place] [address] Glu Fastingon 05-06-2022 Glucose [Mass/Vol] 108 mg/dL High 55-99 [facility] Comment on above: Performed By: #### 7 [id number] #### [facility] [address] [place] [address] HEMATOLOGYOrdered By: Saloni aSn on 05-06-2022 Erythrocyte distribution width (RBC) [Ratio] 13.9 % Normal 10.9 - 14.2 % [facility] HemeAutoSS Hematocrit (Bld) [Volume fraction] 37.6 % Low 37.7 - 49.0 % FT [employer] Hemoglobin (Bld) [Mass/Vol] 13.5 g/dL Normal 13.5 - 17.5 gm/dL FT [facility] MCH (RBC) [Entitic mass] 29.2 pg Normal 27.0 - 34.0 pg FT [facility] MCHC (RBC) [Mass/Vol] 35.8 g/dL Normal 31.4 - 36.0 gm/dL FT [facility] MCV (RBC) [Entitic vol] 81.7 fL Normal 80.0 - 100.0 fL [facility] Platelet mean volume (Bld) [Entitic vol] 7.1 fL Normal 6.4 - 10.8 fL [facility] HemeAutoSS Platelets (Bld) [#/Vol] 221.0 E9/L Normal 150.0 - 500.0 E9/L [facility] HemeAutoSS RBC (Bld) [#/Vol] 4.6 E12/L Normal 4.3 - 5.9 E12/L [facility] HemeAutoSS WBC corrected for nucl RBC Auto (Bld) [#/Vol] 7.0 E9/L Normal 4.0 - 11.0 E9/L [facility] HemeAutoSS PalR9uid 05-06-2022 HbA1c (Bld) [Mass fraction] 5.3 % Normal <=5.9 [facility] Comment on above: Performed By: #### 7 [id number] #### [facility] [address] [place] [address] Lyteson 05-06-2022 Anion gap [Moles/Vol] 9 mmol/L Normal 6-16 [facility] Comment on above: Performed By: #### 7 [id number] #### [facility] [address] [place] [address] Chloride [Moles/Vol] 104 mmol/L Normal 101-111 [facility] Comment on above: Performed By: #### 7 [id number] #### [facility] [address] [place] [address] CO2 [Moles/Vol] 27 mmol/L Normal 21-31 [facility] Comment on above: Performed By: #### 7 [id number] #### [facility] [address] [place] [address] Potassium [Moles/Vol] 4.0 mmol/L Normal 3.5-5.3 [facility] Comment on above: Performed By: #### 7 [id number] #### [facility] [address] [place] [address] Sodium [Moles/Vol] 136 mmol/L Normal 135-145 [facility] Comment on above: Performed By: #### 7 [id number] #### [facility] [address] [place] [address] UA With Cult Reflexon 2021 Bilirubin Ql (U) Negative Normal Negative [facility] Comment on above: Performed By: #### 1 [id number] ####[facility] [address] [place] [address] Clarity (U) CLEAR Normal Clear [facility] Comment on above: Performed By: #### 1 [id number] ####[facility] [address] [place] [address] Color (U) YELLOW Normal Yellow [facility] Comment on above: Performed By: #### 1 [id number] ####[facility] [address] [place] [address] Epithelial cells.squamous LM.HPF (Urine sed) [#/Area] 0-2 Normal 0-2 [facility] Comment on above: Performed By: #### 1 [id number] ####[facility] [address] [place] [address] Glucose Test strip (U) [Mass/Vol] Negative Normal Negative [facility] Comment on above: Performed By: #### 1 [id number] ####[facility] [address] [place] [address] Hemoglobin Ql (U) Negative Normal Negative [facility] Comment on above: Performed By: #### 1 [id number] ####[address] [place] [address] Ketones (U) [Mass/Vol] Negative Normal Negative [facility] Comment on above: Performed By: #### 1 [id number] ####[address] [address] [place].plasma/[place] .RBC (Bld) [Mass ratio] 0-3 Normal 0-3 [facility] Comment on above: Performed By: #### 1 [id number] ####[address] [address] Mucus Ql (Urine sed) TRACE Normal [facility] Comment on above: Performed By: #### 1 [id number] ####[address] [address] Nitrite Ql (U) Negative Normal Negative [facility] Comment on above: Performed By: #### 1 [id number] ####[address] [address] pH (U) 5.5 [pH] Invalid Interpretation Code 5.0-9.0 [facility] Comment on above: Performed By: #### 1 [id number] ####[address] [address] Protein (U) [Mass/Vol] Negative Normal Negative [facility] Comment on above: Performed By: #### 1 [id number] ####[address] [address] Specific gravity (U) [Rel density] 1.025 Invalid Interpretation Code 1.005-1.030 [facility] Comment on above: Performed By: #### 1 [id number] ####[address] [address] Type of Urine collection method Clean Catch Normal [facility] Comment on above: Performed By: #### 1 [id number] ####[facility] [address] [place] [address] Urobilinogen Qn (U) 0.2 {Ady'U}/dL Normal 0.0-1.0 [facility] Comment on above: Performed By: #### 1 [id number] ####[facility] [address] [place] [address] WBC Auto Ql (U) Negative Normal Negative [facility] Comment on above: Performed By: #### 1 [id number] ####[facility] [address] [place] [address] WBC LM.HPF (Urine sed) [#/Area] 0-5 Normal 0-5 [facility] Comment on above: Performed By: #### 1 [id number] ####[facility] [address] [place] [address] URINALYSISOrdered By: Twila Gamez on 05-06-2022 Bilirubin Ql (U) Negative (05/06/22 10:11 AM) Normal Negative [facility] UA Auto SS Clarity (U) Clear (05/06/22 10:11 AM) Normal Clear [facility] UA Auto SS Color (U) Yellow (05/06/22 10:11 AM) Normal Yellow [facility] UA Auto SS Epithelial cells.squamous LM.HPF (Urine sed) [#/Area] 0-2 /HPF Normal 0-2/HPF [facility] UA Aut o SS Glucose Test strip (U) [Mass/Vol] Negative (05/06/22 10:11 AM) Normal Negative [facility] UA Auto SS Hemoglobin Ql (U) Negative (05/06/22 10:11 AM) Normal Negative [facility] UA Auto SS Ketones (U) [Mass/Vol] Negative (05/06/22 10:11 AM) Normal Negative [facility] UA Auto SS [place].plasma/[place] .RBC (Bld) [Mass ratio] 0-3 /HPF Normal 0-3/HPF [facility] UA Auto SS Mucus Ql (Urine sed) Trace (05/06/22 10:11 AM) Normal [facility] UA Auto SS Nitrite Ql (U) Negative (05/06/22 10:11 AM) Normal Negative [facility] UA Auto SS pH (U) 5.5 *NA* (05/06/22 10:11 AM) Invalid Interpretation Code 5.0 - 9.0 [facility] UA Auto SS Protein (U) [Mass/Vol] Negative (05/06/22 10:11 AM) Normal Negative [facility] UA Auto SS Specific gravity (U) [Rel density] 1.025 *NA* (05/06/22 10:11 AM) Invalid Interpretation Code 1.005 - 1.030 [facility] UA Auto SS UA Spec Desc Clean Catch (05/06/22 10:11 AM) Normal [facility] UA Auto SS Urobilinogen Qn (U) 0.7239076 {Ady'U}/dL Normal 0.0 - 1.0 EU/dL [facility] UA Auto SS WBC Auto Ql (U) Negative (05/06/22 10:11 AM) Normal Negative [facility] UA Auto SS WBC LM.HPF (Urine sed) [#/Area] 0-5 /HPF Normal 0-5/HPF [facility] UA Auto SS XR Chest 2 Viewson 2 XR Chest 2 Views Exam Date/Time: 05/06/2022 10:29 EST Reason for Exam: pre op Report IMPRESSION: NO RADIOGRAPHIC EVIDENCE OF ACTIVE DISEASE IN THE CHEST. CLINICAL INFORMATION: pre op COMPARISON: None available. FINDINGS: Two views of the chest were obtained. Heart and mediastinum appear normal. The lungs appear clear. Visualized bony thorax and remainder of the chest appears unremarkable. FINAL REPORT Dictated: 05/06/2022 11:14 am Troy Gordon MD Signed (Electronic Signature): 05/06/2022 11:14 am Signed by: Troy Gordon MD Transcribed by: MANPREET Technologist: CC Normal [facility] eGFRon 05-06-2022 GFR/1.73 sq M.predicted among blacks MDRD (S/P/Bld) [Vol rate/Area] mL/min/{1.73_m2} Normal >=59 [facility] Comment on above: Order Comment: Order added by Discern Expert. Result Comment: eGFR is race adjusted. AA=. Performed By: #### 7 [id number] #### [facility] [address] [place] [address] GFR/1.73 sq M.predicted among non-blacks MDRD (S/P/Bld) [Vol rate/Area] mL/min/{1.73_m2} Normal >=59 [facility] Comment on above: Order Comment: Order added by Discern Expert. Result Comment: Manager Services la kidney disease could be indicated at eGFR's of less than 60 mL/min/1.73m2. Kidney failure is indicated at less than 15 mL/min/1.73m2. Performed By: #### 7 [id number] #### [facility] [address] [place] [address] Physician Orderon 04-02-2022 Physician Order [id number] C1#1.00CD:127 Normal [facility] Physician Order [id number] 426#1.00CD:127 Normal [facility] Lab Reportson 03-26-2022 Lab Reports [id number] 73#1.00CD:127 Normal [facility] INSULINon 02-25-2022 Insulin 8.0 uIU/mL Normal 2.6-24.9 [facility] Comment on above: Performed By: #### C BC #### [facility] [address] [place] [address] Dr. Reid Garsia CBC AUTO DIFFon 02-24-2022 BASO # 0.0 103/ul Normal 0.0-0.1 [facility] Comment on above: Performed By: #### C BC #### [facility] [address] [place] [address] Dr. Reid Garsia Basophils/100 WBC (Bld) 0.3 % Normal 0.2-2.0 [facility] Comment on above: Performed By: #### C BC #### [facility] [address] [place] [address] Dr. Reid Garsia EO # 0.2 103/ul Normal 0.0-0.7 [facility] Comment on above: Performed By: #### C BC #### [facility] [address] [place] [address] Dr. Reid Garsia Eosinophils/100 WBC (Bld) 2.7 % Normal 0.9-7.0 [facility] Comment on above: Performed By: #### C BC #### [facility] [address] [place] [address] Dr. Reid Garsia Erythrocyte distribution width (RBC) [Ratio] 12.7 % Normal 11.0-15.0 [facility] Comment on above: Performed By: #### C BC #### [facility] [address] [place] [address] Dr. Reid Garsia Hematocrit (Bld) [Volume fraction] 40.6 % Critically low 42.0-54.0 [facility] Comment on above: Performed By: #### C BC #### [facility] [address] [place] [address] Dr. Reid Garsia Hemoglobin (Bld) [Mass/Vol] 13.3 g/dL Critically low 14.0-18.0 [facility] Comment on above: Performed By: #### C BC #### [facility] [address] [place] [address] Dr. Reid Garsia IG # 0.01 10e3/ul Normal 0.00-0.03 [facility] Comment on above: Performed By: #### C BC #### [facility] [address] [place] [address] Dr. Reid Garsia IG % 0.1 % Normal 0.0-0.5 [facility] Comment on above: Performed By: #### C BC #### [facility] [address] [place] [address] Dr. Reid Garsia LYMPH # 1.4 103/ul Normal 1.2-3.8 [facility] Comment on above: Performed By: #### C BC #### [facility] [address] [place] [address] Dr. Reid Garsia Lymphocytes/100 WBC (Bld) 21.2 % Normal 20.5-60.0 [facility] Comment on above: Performed By: #### C BC #### [facility] [address] [place] [address] Dr. Reid Garsia MANUAL DIFF REQ NO Normal [facility] Comment on above: Performed By: #### C BC #### [facility] [address] [place] [address] Dr. Reid Garsia MCH (RBC) [Entitic mass] 29.4 pg Normal 25.9-34.0 [facility] Comment on above: Performed By: #### C BC #### [facility] [address] [place] [address] Dr. Reid Garsia MCHC (RBC) [Mass/Vol] 32.8 g/dL Normal 29.9-35.2 [facility] Comment on above: Performed By: #### C BC #### [facility] [address] [place] [address] Dr. Reid Garsia MCV (RBC) [Entitic vol] 89.8 fL Normal 80.0-94.0 [facility] Comment on above: Performed By: #### C BC #### [facility] [address] [place] [address] Dr. Reid Garsia MONO # 0.4 103/ul Normal 0.3-0.8 [facility] Comment on above: Performed By: #### C BC #### [facility] [address] [place] [address] Dr. Reid Garsia Monocytes/100 WBC (Bld) 6.4 % Normal 1.7-12.0 [facility] Comment on above: Performed By: #### C BC #### [facility] [address] [place] [address] Dr. Reid Garsia NEUT # 4.7 103/ul Normal 1.4-6.5 [facility] Comment on above: Performed By: #### C BC #### [facility] [address] [place] [address] Dr. Reid Garsia Neutrophils/100 WBC (Bld) 69.3 % Normal 43.0-75.0 [facility] Comment on above: Performed By: #### C BC #### [facility] [address] [address] [address] Reid Garsia Platelet mean volume (Bld) [Entitic vol] 9.2 fL Critically low 9.5-13.5 [facility] Comment on above: Performed By: #### C BC #### [facility] [address] [address] [address] Reid Garsia PLT 215 103/ul Normal 150-450 [facility] Comment on above: Performed By: #### C BC #### [facility] [address] [address] [address] Reid Garsia RBC 4.52 106/ul Critically low 4.70-6.10 [facility] Comment on above: Performed By: #### C BC #### [facility] [address] [address] [address] Reid Garsia WBC 6.8 103/ul Normal 4.0-11.0 [facility] Comment on above: Performed By: #### C BC #### [facility] [address] [address] [address] Reid Garsia GLYCOHEMOGLOBIN A1Con 2021 ADA RECOMMENDATION SEE BELOW Normal [facility] Comment on above: Result Comment: ADA RECOMMENDED LIMIT 4.0 - 6.0 ADA THERAPEUTIC TARGET < 7.0 ACTION SUGGESTED > 7.0 Performed By: #### A 1C #### [facility] [address] [place] [address] Dr. Reid Garsia Glucose [Mass/Vol] 108 mg/dL Normal [facility] Comment on above: Performed By: #### A 1C #### [facility] [address] [address] [address] Reid Garsia HbA1c (Bld) [Mass fraction] 5.4 % Normal 4.5-6.2 [facility] Comment on above: Performed By: #### A 1C #### [facility] [address] [place] [address] Dr. Reid Garsia LIPID PROFILEon 02-24-2022 CHOL-HDL RATIO NORM SEE BELOW Normal [facility] Comment on above: Result Comment: 3.3 - 4.4 LOW RISK 4.4 - 7.1 AVERAGE RISK 7.1 - 11.0 MODERATE RISK >11.0 HIGH RISK Performed By: #### L IPID, CMP #### [facility] [address] [place] [address] Dr. Reid Garsia Cholesterol [Mass/Vol] 127 mg/dL Normal <=200 [facility] Comment on above: Performed By: #### L IPID, CMP #### [facility] [address] [place] [address] Dr. Reid Garsia Cholesterol in HDL [Mass/Vol] 54 mg/dL Normal 40-60 [facility] Comment on above: Performed By: #### L IPID, CMP #### [facility] [address] [place] [address] Dr. Reid Garsia Cholesterol in LDL [Mass/Vol] 64.0 mg/dL Normal [facility] Comment on above: Performed By: #### L IPID, CMP #### [facility] [address] [place] [address] Dr. Reid Garsia Cholesterol.total/Chol esterol in HDL [Mass ratio] 2.4 {ratio} Normal [facility] Comment on above: Performed By: #### L IPID, CMP #### [facility] [address] [place] [address] Dr. Reid Garsia HDL NORMAL > or = 60 mg/dl - LOW CARDIOVASCULAR RISK <40 mg/dl - HIGH CARDIOVASCULAR RISK Normal [facility] Comment on above: Performed By: #### L IPID, CMP #### [facility] [address] [place] [address] Dr. Reid Garsia LDL CALC NORMAL SEE BELOW Normal [facility] Comment on above: Result Comment: <100 mg/dl OPTIMAL 100 - 129 mg/dl NEAR OR ABOVE OPTIMAL 130 - 159 mg/dl BORDERLINE HIGH 160 - 189 mg/dl HIGH >190 mg/dl VERY HIGH Performed By: #### L IPID, CMP #### [facility] [address] [place] [address] Dr. Reid Garsia Triglyceride [Mass/Vol] 45 mg/dL Normal <=150 [facility] Comment on above: Performed By: #### L IPID, CMP #### [facility] [address] [address] [address] Reid Garsia VLDL CALC 9.0 mg/dL Normal [facility] Comment on above: Performed By: #### L IPID, CMP #### [facility] [address] [address] [address] Reid Garsia PROF 14(COMP METB)on 022 Albumin [Mass/Vol] 3.2 g/dL Critically low 3.4-5.0 [facility] Comment on above: Performed By: #### L IPID, CMP #### [facility] [address] [place] [address] Dr. Reid Garsia Albumin/Globulin [Mass ratio] 1.0 {ratio} Normal [facility] Comment on above: Performed By: #### L IPID, CMP #### [facility] [address] [place] [address] Dr. Reid Garsia ALP [Catalytic activity/Vol] 68 U/L Normal 46-116 [facility] Comment on above: Performed By: #### L IPID, CMP #### [facility] [address] [place] [address] Dr. Reid Garsia ALT [Catalytic activity/Vol] 30 U/L Normal 16-63 [facility] Comment on above: Performed By: #### L IPID, CMP #### [facility] [address] [address] [address] Reid Garsia Anion gap [Moles/Vol] 10.3 mmol/L Normal [facility] Comment on above: Performed By: #### L IPID, CMP #### [facility] [address] [address] [address] Reid Garsia AST [Catalytic activity/Vol] 14 U/L Critically low 15-37 [facility] Comment on above: Performed By: #### L IPID, CMP #### [facility] [address] [place] [address] Dr. Reid Garsia Bilirubin [Mass/Vol] 0.4 mg/dL Normal 0.2-1.0 [facility] Comment on above: Performed By: #### L IPID, CMP #### [facility] [address] [address] [address] Reid Garsia Calcium [Mass/Vol] 8.5 mg/dL Normal 8.5-10.1 [facility] Comment on above: Performed By: #### L IPID, CMP #### [facility] [address] [address] [address] Reid Garsia Chloride [Moles/Vol] 106 mmol/L Normal 98-107 [facility] Comment on above: Performed By: #### L IPID, CMP #### [facility] [address] [place] [address] Dr. Reid Garsia CO2 [Moles/Vol] 30.8 mmol/L Normal 21.0-32.0 [facility] Comment on above: Performed By: #### L IPID, CMP #### [facility] [address] [place] [address] Dr. Reid Garsia Creatinine [Mass/Vol] 0.86 mg/dL Normal 0.70-1.30 [facility] Comment on above: Performed By: #### L IPID, CMP #### [facility] [address] [place] [address] Dr. Reid Garsia EGFR-AF [place] >60 Normal >=60 [facility] Comment on above: Performed By: #### L IPID, CMP #### [facility] [address] [place] [address] Dr. Redi Garsia EGFR-NON AF [place] >60 Normal >=60 [facility] Comment on above: Performed By: #### L IPID, CMP #### [facility] [address] [place] [address] Dr. Reid Garsia Globulin (S) [Mass/Vol] 3.1 g/dL Normal [facility] Comment on above: Performed By: #### L IPID, CMP #### [facility] [address] [place] [address] Dr. Reid Garsia Glucose [Mass/Vol] 120 mg/dL Critically high 74-106 [facility] Comment on above: Performed By: #### L IPID, CMP #### [facility] [address] [place] [address] Dr. Reid Garsia Potassium [Moles/Vol] 4.1 mmol/L Normal 3.5-5.1 [facility] Comment on above: Performed By: #### L IPID, CMP #### [facility] [address] [place] [address] Dr. Reid Garsia Protein [Mass/Vol] 6.3 g/dL Critically low 6.4-8.2 [facility] Comment on above: Performed By: #### L IPID, CMP #### [facility] [address] [place] [address] Dr. Reid Garsia Sodium [Moles/Vol] 143 mmol/L Normal 136-145 [facility] Comment on above: Performed By: #### L IPID, CMP #### [facility] [address] [place] [address] Dr. Reid Garsia Urea nitrogen [Mass/Vol] 17.0 mg/dL Normal 7.0-18.0 [facility] Comment on above: Performed By: #### L IPID, CMP #### [facility] [address] [place] [address] Dr. Reid Garsia Urea nitrogen/Creatinine [Mass ratio] 19.8 mg/mg Normal [facility] Comment on above: Performed By: #### L IPID, CMP #### [facility] [address] [place] [address] Dr. Reid Garsia Physician Referralon 022 Physician Referral [id number] Normal [facility] BNPon 12-09-2021 Natriuretic peptide B (Bld) [Mass/Vol] 31.0 pg/mL Normal <=900.0 [facility] Comment on above: Performed By: #### B MP, BNP #### [facility] [address] [place] [address] Dr. Reid Garsia ECHOCARDIO M/2D COMPLETEon 0 12-09-2021 ECHOCARDIO M/2D COMPLETE Patient: IRWIN MOORE Exam Date: 12/09/2021 : 1960 Gender:M Ordering : MAGALY SOTO [facility] Admission #: [id number] Family : Order #: [id number] CLICK HERE TO VIEW EXAM ECHOCARDIOGRAM REPORT PROCEDURE: CARDIO PULMONARY ECHOCARDIO M/2D COMP INDICATIONS: Bilateral leg edema COMPARISON: None. DESCRIPTION: COMPLETE ECHOCARDIOGRAM Real-time transthoracic echocardiography with 2D, M-mode, spectral and color flow Doppler performed. QUALITY: Technical quality was adequate. LEFT VENTRICLE: Normal chamber size. Moderate concentric left ventricular hypertrophy. Global left ventricular systolic function is hyperdynamic. LV EF: Estimated left ventricular ejection fraction is 65-70%. DIASTOLIC: Normal diastolic function. ATRIAL SEPTUM: LEFT ATRIUM: Normal chamber size. RIGHT ATRIUM: Normal chamber size. RIGHT VENTRICLE: Normal chamber size. Normal right ventricular systolic function. TRICUSPID VALVE: Normal mobility and thickness. No stenosis with trivial regurgitation. No evidence of pulmonary hypertension. RVSP 33mmHg MITRAL VALVE: Normal mobility and thickness. No mitral valve prolapse. No evidence of mitral valve stenosis. There is no mitral annular calcification. Trivial mitral regurgitation. AORTIC VALVE: Grossly normal. Normal mobility. No evidence of aortic valve stenosis. Mild aortic regurgitation. AORTIC ROOT: Normal diameter and appearance. PULMONIC VALVE: Grossly normal. No stenosis. PERICARDIUM: No evidence of pericardial effusion. IVC: Collapses with inspirations. Normal size PLEURA: CONCLUSION: 1. Moderate concentric left ventricular hypertrophy with hyperdynamic systolic function. LVEF is 65 to 70%. 2. Normal right ventricular systolic function. 3. Mild aortic regurgitation. 4. Normal right-sided pressures. 5. No pericardial effusion. Adult Echocardiography Procedure Report Left Ventricle LVEDD (3.7 - 5.6 cm): 3.29 cm LVESD (2.2 - 4.0 cm): 2.28 cm LVIVS thickness (0.6 - 1.2 cm): 1.69 cm LVPW thickness (0.5 - 1.0 cm): 1.61 cm e': 9.43 cm/s E - e': 7.40 LVOT Area (cm2): 4.52 cm2 Peak Velocity (LVOT): 108.00 cm/s Mean Velocity (LVOT): 68.70 cm/s LVOT Diameter 2.40 cm Left Ventricular Ejection Fraction: 65-70 % Left Atrium LA Volume Index (2D A2C): 47.60 ml/m2 Left Atrium Systolic Dimension: 3.40 cm Left Atrium Systolic Area(A2C): 29.40 cm2 Left Atrium Systolic Area(A4C): 24.90 cm2 Left Atrium Systolic Volume(A2C): 550631 mm3 Left Atrium Systolic Volume(A4C): 33413 mm3 Mitral Valve MV E to A Ratio: 1.10 Deceleration Thayer: 2970 mm/s2 Mitral Valve A-Wave Peak Velocity: 63.70 cm/s Mitral Valve E-Wave Peak Velocity: 70.10 cm/s Right Ventricle RV Internal Diastolic Dimension: 4.52 cm Aorta AO Root Diam: 3.60 cm Aortic Valve Peak Velocity (Antegrade Flow): 190.00 cm/s AoV Area (Peak Sabas): 2.86 cm2 AoV Area (VTI): 2.76 cm2 Aortic Valve Cusp Separation: 1.90 cm Peak Velocity(Antegrade Flow): 218.00 cm/s Peak Gradient(Antegrade Flow): 19 mm[Hg] Mean Velocity(Antegrade Flow): 139.00 cm/s Mean Gradient(Antegrade Flow): 9 mm[Hg] Velocity Time Integral: 45.90 cm Tricuspid Valve Pulmonic Valve Peak Velocity: 122.00 cm/s Peak Gradient: 6 mm[Hg] Right Atrium Dictated by: Shon Boyd M.D. on 12/09/2021 at 18:15 Approved by: Shon Boyd M.D. on 12/09/2021 at 18:21 Normal [facility] PROF CHEM 8 (BAS METB)on Anion gap [Moles/Vol] 11.2 mmol/L Normal [facility] Comment on above: Performed By: #### B MP, BNP #### [facility] [address] [address] [address] Reid Garsia Calcium [Mass/Vol] 8.5 mg/dL Normal 8.5-10.1 [facility] Comment on above: Performed By: #### B MP, BNP #### [facility] [address] [address] [address] Reid Garsia Chloride [Moles/Vol] 104 mmol/L Normal 98-107 [facility] Comment on above: Performed By: #### B MP, BNP #### [facility] [address] [place] [address] Dr. Reid Garsia CO2 [Moles/Vol] 28.7 mmol/L Normal 21.0-32.0 [facility] Comment on above: Performed By: #### B MP, BNP #### [facility] [address] [place] [address] Dr. Reid Garsia Creatinine [Mass/Vol] 1.10 mg/dL Normal 0.70-1.30 [facility] Comment on above: Performed By: #### B MP, BNP #### [facility] [address] [place] [address] Dr. Reid Garsia EGFR-AF KITTITIAN >=60 Normal >=60 [facility] Comment on above: Performed By: #### B MP, BNP #### [facility] [address] [place] [address] Dr. Reid Garsia EGFR-NON AF KITTITIAN >=60 Normal >=60 [facility] Comment on above: Performed By: #### B MP, BNP #### [facility] [address] [place] [address] Dr. Reid Garsia Glucose [Mass/Vol] 187 mg/dL Critically high 74-106 [facility] [place] Comment on above: Performed By: #### B MP, BNP #### [facility] [address] [place] [address] Dr. Reid Garsia Potassium [Moles/Vol] 3.9 mmol/L Normal 3.5-5.1 [facility] Comment on above: Performed By: #### B MP, BNP #### [facility] [address] [place] [address] Dr. Reid Garsia Sodium [Moles/Vol] 140 mmol/L Normal 136-145 [facility] Comment on above: Performed By: #### B MP, BNP #### [facility] [address] [place] [address] Dr. Reid Garsia Urea nitrogen [Mass/Vol] 18.0 mg/dL Normal 7.0-18.0 [facility] Comment on above: Performed By: #### B MP, BNP #### [facility] [address] [place] [address] Dr. Reid Garsia Urea nitrogen/Creatinine [Mass ratio] 16.4 mg/mg Normal [facility] Comment on above: Performed By: #### B MP, BNP #### [facility] [address] [place] [address] Dr. Reid Garsia BNPon 12-05-2021 Natriuretic peptide B (Bld) [Mass/Vol] 85.0 pg/mL Normal <=900.0 [facility] Comment on above: Performed By: #### C BC #### [facility] [address] [place] [address] Dr. Reid Garsia CBC AUTO DIFFon 12-05-2021 BASO # 0.0 103/ul Normal 0.0-0.1 [facility] Comment on above: Performed By: #### C BC #### [facility] [address] [place] [address] Dr. Reid Garsia Basophils/100 WBC (Bld) 0.2 % Normal 0.2-2.0 [facility] Comment on above: Performed By: #### C BC #### [facility] [address] [place] [address] Dr. Reid Garsia EO # 0.2 103/ul Normal 0.0-0.7 [facility] Comment on above: Performed By: #### C BC #### [facility] [address] [place] [address] Dr. Reid Garsia Eosinophils/100 WBC (Bld) 1.8 % Normal 0.9-7.0 [facility] Comment on above: Performed By: #### C BC #### [facility] [address] [place] [address] Dr. Reid Garsia Erythrocyte distribution width (RBC) [Ratio] 14.2 % Normal 11.0-15.0 [facility] Comment on above: Performed By: #### C BC #### [facility] [address] [place] [address] Dr. Reid Garsia Hematocrit (Bld) [Volume fraction] 41.1 % Critically low 42.0-54.0 [facility] Comment on above: Performed By: #### C BC #### [facility] [address] [place] [address] Dr. Reid Garsia Hemoglobin (Bld) [Mass/Vol] 13.5 g/dL Critically low 14.0-18.0 [facility] Comment on above: Performed By: #### C BC #### [facility] [address] [place] [address] Dr. Reid Garsia IG # 0.06 10e3/ul Critically high 0.00-0.03 [facility] Comment on above: Performed By: #### C BC #### [facility] [address] [place] [address] Dr. Reid Garsia IG % 0.7 % Critically high 0.0-0.5 [facility] Comment on above: Performed By: #### C BC #### [facility] [address] [place] [address] Dr. Reid Garsia LYMPH # 1.4 103/ul Normal 1.2-3.8 [facility] Comment on above: Performed By: #### C BC #### [facility] [address] [place] [address] Dr. Reid Garsia Lymphocytes/100 WBC (Bld) 16.2 % Critically low 20.5-60.0 [facility] Comment on above: Performed By: #### C BC #### [facility] [address] [place] [address] Dr. Reid Garsia MANUAL DIFF REQ NO Normal [facility] Comment on above: Performed By: #### C BC #### [facility] [address] [place] [address] Dr. Reid Garsia MCH (RBC) [Entitic mass] 30.3 pg Normal 25.9-34.0 [facility] Comment on above: Performed By: #### C BC #### [facility] [address] [place] [address] Dr. Reid Garsia MCHC (RBC) [Mass/Vol] 32.8 g/dL Normal 29.9-35.2 [facility] Comment on above: Performed By: #### C BC #### [facility] [address] [place] [address] Dr. Reid Garsia MCV (RBC) [Entitic vol] 92.2 fL Normal 80.0-94.0 [facility] Comment on above: Performed By: #### C BC #### [facility] [address] [address] [address] Reid Garsia MONO # 0.6 103/ul Normal 0.3-0.8 [facility] Comment on above: Performed By: #### C BC #### [facility] [address] [place] [address] Dr. Reid Garsia Monocytes/100 WBC (Bld) 6.8 % Normal 1.7-12.0 [facility] Comment on above: Performed By: #### C BC #### [facility] [address] [place] [address] Dr. Reid Garsia NEUT # 6.3 103/ul Normal 1.4-6.5 [facility] Comment on above: Performed By: #### C BC #### [facility] [address] [place] [address] Dr. Reid Garsia Neutrophils/100 WBC (Bld) 74.3 % Normal 43.0-75.0 [facility] Comment on above: Performed By: #### C BC #### [facility] [address] [place] [address] Dr. Reid Garsia Platelet mean volume (Bld) [Entitic vol] 8.9 fL Critically low 9.5-13.5 [facility] Comment on above: Performed By: #### C BC #### [facility] [address] [place] [address] Dr. Reid Garsia PLT 209 103/ul Normal 150-450 [facility] Comment on above: Performed By: #### C BC #### [facility] [address] [place] [address] Dr. Ried Garsia RBC 4.46 106/ul Critically low 4.70-6.10 [facility] Comment on above: Performed By: #### C BC #### [facility] [address] [place] [address] Dr. Reid Garsia WBC 8.5 103/ul Normal 4.0-11.0 [facility] Comment on above: Performed By: #### C BC #### [facility] [address] [place] [address] Dr. Reid Garsia PROF 14(COMP METB)on 022 Albumin [Mass/Vol] 3.1 g/dL Critically low 3.4-5.0 [facility] Comment on above: Performed By: #### C MP, BNP #### [facility] [address] [place] [address] Dr. Reid Garsia Albumin/Globulin [Mass ratio] 1.0 {ratio} Normal [facility] Comment on above: Performed By: #### C MP, BNP #### [facility] [address] [place] [address] Dr. Reid Garsia ALP [Catalytic activity/Vol] 66 U/L Normal 46-116 [facility] Comment on above: Performed By: #### C MP, BNP #### [facility] [address] [place] [address] Dr. Ried Garsia ALT [Catalytic activity/Vol] 31 U/L Normal 16-63 [facility] Comment on above: Performed By: #### C MP, BNP #### [facility] [address] [place] [address] Dr. Reid Garsia Anion gap [Moles/Vol] 8.9 mmol/L Normal [facility] Comment on above: Performed By: #### C MP, BNP #### [facility] [address] [place] [address] Dr. Reid Garsia AST [Catalytic activity/Vol] 14 U/L Critically low 15-37 [facility] Comment on above: Performed By: #### C MP, BNP #### [facility] [address] [place] [address] Dr. Reid Garsia Bilirubin [Mass/Vol] 0.7 mg/dL Normal 0.2-1.0 [facility] Comment on above: Performed By: #### C MP, BNP #### [facility] [address] [place] [address] Dr. Reid Garsia Calcium [Mass/Vol] 8.7 mg/dL Normal 8.5-10.1 [facility] Comment on above: Performed By: #### C MP, BNP #### [facility] [address] [place] [address] Dr. Reid Garsia Chloride [Moles/Vol] 106 mmol/L Normal 98-107 [facility] Comment on above: Performed By: #### C MP, BNP #### [facility] [address] [place] [address] Dr. Reid Garsia CO2 [Moles/Vol] 30.2 mmol/L Normal 21.0-32.0 [facility] Comment on above: Performed By: #### C MP, BNP #### [facility] [address] [place] [address] Dr. Reid Garsia Creatinine [Mass/Vol] 0.98 mg/dL Normal 0.70-1.30 [facility] Comment on above: Performed By: #### C MP, BNP #### [facility] [address] [place] [address] Dr. Reid Garsia EGFR-AF KITTITIAN >60 Normal >=60 [facility] Comment on above: Performed By: #### C MP, BNP #### [facility] [address] [place] [address] Dr. Reid Garsia EGFR-NON AF KITTITIAN >60 Normal >=60 [facility] Comment on above: Performed By: #### C MP, BNP #### [facility] [address] [place] [address] Dr. Reid Garsia Globulin (S) [Mass/Vol] 3.1 g/dL Normal [facility] Comment on above: Performed By: #### C MP, BNP #### [facility] [address] [place] [address] Dr. Reid Garsia Glucose [Mass/Vol] 111 mg/dL Critically high 74-106 [facility] Comment on above: Performed By: #### C MP, BNP #### [facility] [address] [address] [address] Reid Garsia Potassium [Moles/Vol] 4.1 mmol/L Normal 3.5-5.1 [facility] Comment on above: Performed By: #### C MP, BNP #### [facility] [address] [place] [address] Dr. Reid Garsia Protein [Mass/Vol] 6.2 g/dL Critically low 6.4-8.2 [facility] Comment on above: Performed By: #### C MP, BNP #### [facility] [address] [place] [address] Dr. Reid Garsia Sodium [Moles/Vol] 141 mmol/L Normal 136-145 [facility] Comment on above: Performed By: #### C MP, BNP #### [facility] [address] [place] [address] Dr. Reid Garsia Urea nitrogen [Mass/Vol] 15.0 mg/dL Normal 7.0-18.0 [facility] Comment on above: Performed By: #### C MP, BNP #### [facility] [address] [place] [address] Dr. Reid Garsia Urea nitrogen/Creatinine [Mass ratio] 15.3 mg/mg Normal [facility] Comment on above: Performed By: #### C MP, BNP #### [facility] [address] [place] [address] Dr. Reid Garsia AMYLASEon 11-21-2021 Amylase [Catalytic activity/Vol] 26 U/L Normal 25-115 [facility] Comment on above: Performed By: #### C BC #### [facility] [address] [place] [address] Dr. Reid Garsia CBC W MANUAL DIFFon 11-22-19 22 ATYPICAL LYMPH # Normal [facility] Comment on above: Performed By: #### C BC #### [facility] [address] [place] [address] Dr. Reid Garsia ATYPICAL LYMPH % Normal [facility] Comment on above: Performed By: #### C BC #### [facility] [address] [place] [address] Dr. Reid Garsia BAND # 0.1 103/ul Normal 0.0-0.3 [facility] Comment on above: Performed By: #### C BC #### [facility] [address] [place] [address] Dr. Reid Garsia BAND % 2 % Normal 0-5 [facility] Comment on above: Performed By: #### C BC #### [facility] [address] [place] [address] Dr. Reid Garsia BASOM # 0.00 103/ul Normal 0.00-0.10 [facility] Comment on above: Performed By: #### C BC #### [facility] [address] [place] [address] Dr. Reid Garsia BASOM % 0.0 % Critically low 0.2-2.0 [facility] Comment on above: Performed By: #### C BC #### [facility] [address] [place] [address] Dr. Reid Garsia BLAST # Normal [facility] Comment on above: Performed By: #### C BC #### [facility] [address] [place] [address] Dr. Reid Garsia BLAST % Normal [facility] Comment on above: Performed By: #### C BC #### [facility] [address] [place] [address] Dr. Reid Garsia CORRECTED WBC Normal 4.0-11.0 [facility] Comment on above: Performed By: #### C BC #### [facility] [address] [place] [address] Dr. Reid Garsia EOS # 0.05 103/ul Normal 0.00-0.70 [facility] Comment on above: Performed By: #### C BC #### [facility] [address] [place] [address] Dr. Reid Garsia EOS% 1.0 % Normal 0.9-7.0 [facility] Comment on above: Performed By: #### C BC #### [facility] [address] [place] [address] Dr. Reid Garsia HCT 38.4 % Critically low 42.0-54.0 [facility] Comment on above: Performed By: #### C BC #### [facility] [address] [place] [address] Dr. Reid Garsia HGB 13.3 g/dl Critically low 14.0-18.0 [facility] Comment on above: Performed By: #### C BC #### [facility] [address] [place] [address] Dr. Reid Garsia LYMPHM # 1.91 103/ul Normal 1.20-3.80 [facility] Comment on above: Performed By: #### C BC #### [facility] [address] [place] [address] Dr. Reid Garsia LYMPHM% 39.0 % Normal 20.5-60.0 [facility] Comment on above: Performed By: #### C BC #### [facility] [address] [place] [address] Dr. Reid Garsia MCH 30.0 pg Normal 25.9-34.0 [facility] Comment on above: Performed By: #### C BC #### [facility] [address] [place] [address] Dr. Reid Garsia MCHC 34.6 g/dl Normal 29.9-35.2 [facility] Comment on above: Performed By: #### C BC #### [facility] [address] [place] [address] Dr. Reid Garsia MCV 86.5 fL Normal 80.0-94.0 [facility] Comment on above: Performed By: #### C BC #### [facility] [address] [place] [address] Dr. Reid Garsia METAMYELOCYTE # Normal [facility] Comment on above: Performed By: #### C BC #### [facility] [address] [place] [address] Dr. Reid Garsia METAMYELOCYTE % Normal [facility] Comment on above: Performed By: #### C BC #### [facility] [address] [address] [address] Reid Garsia MONOM# 0.29 103/ul Critically low 0.30-0.80 [facility] Comment on above: Performed By: #### C BC #### [facility] [address] [address] [address] Reid Garsia MONOM% 6.0 % Normal 1.7-12.0 [facility] Comment on above: Performed By: #### C BC #### [facility] [address] [address] [address] Reid Garsia MPV 9.0 fL Critically low 9.5-13.5 [facility] Comment on above: Performed By: #### C BC #### [facility] [address] [place] [address] Dr. Reid Garsia MYELOCYTE # Normal [facility] Comment on above: Performed By: #### C BC #### [facility] [address] [place] [address] Dr. Reid Garsia MYELOCYTE % Normal [facility] Comment on above: Performed By: #### C BC #### [facility] [address] [place] [address] Dr. Reid Garsia NRBC Normal [facility] Comment on above: Performed By: #### C BC #### [facility] [address] [place] [address] Dr. Reid Garsia PLT 212 103/ul Normal 150-450 [facility] Comment on above: Performed By: #### C BC #### [facility] [address] [place] [address] Dr. Reid Garsia RBC 4.44 106/ul Critically low 4.70-6.10 [facility] Comment on above: Performed By: #### C BC #### [facility] [address] [address] [address] Reid Garsia RDW 13.6 % Normal 11.0-15.0 [facility] Comment on above: Performed By: #### C BC #### [facility] [address] [address] [address] Reid Garsia SEG # 2.55 103/ul Normal 1.40-6.50 [facility] Comment on above: Performed By: #### C BC #### [facility] [address] [place] [address] Dr. Reid Garsia SEG % 52.0 % Normal 43.0-75.0 [facility] Comment on above: Performed By: #### C BC #### [facility] Laboratory [address] [place] [address] Dr. Reid Garsia WBC 4.9 103/ul Normal 4.0-11.0 [facility] Comment on above: Performed By: #### C BC #### [facility] Laboratory [address] [place] [address] Dr. Reid Garsia LIPASEon 11-21-2021 Lipase [Catalytic activity/Vol] 141.0 U/L Normal 73.0-393.0 [facility] Comment on above: Performed By: #### C BC #### [facility] Laboratory [address] [place] [address] Dr. Reid Garsia PROF 14(COMP METB)on 022 Albumin [Mass/Vol] 3.0 g/dL Critically low 3.4-5.0 Th e [facility] Comment on above: Performed By: #### C BC #### [facility] Laboratory [address] [place] [address] Dr. Reid Garsia Albumin/Globulin [Mass ratio] 1.0 {ratio} Normal [facility] Comment on above: Performed By: #### C BC #### [facility] Laboratory [address] [place] [address] Dr. Reid Garsia ALP [Catalytic activity/Vol] 67 U/L Normal 46-116 [facility] Comment on above: Performed By: #### C BC #### [facility] Laboratory [address] [place] [address] Dr. Reid Garsia ALT [Catalytic activity/Vol] 47 U/L Normal 16-63 [facility] Comment on above: Performed By: #### C BC #### [facility] Laboratory [address] [address] [address] Reid Garsia Anion gap [Moles/Vol] 13.8 mmol/L Normal [facility] Comment on above: Performed By: #### C BC #### [facility] Laboratory [address] [place] [address] Dr. Reid Garsia AST [Catalytic activity/Vol] 35 U/L Normal 15-37 [facility] Comment on above: Performed By: #### C BC #### [facility] Laboratory [address] [place] [address] Dr. Reid Garsia Bilirubin [Mass/Vol] 0.4 mg/dL Normal 0.2-1.0 [facility] Comment on above: Performed By: #### C BC #### [facility] Laboratory [address] [place] [address] Dr. Reid Garsia Calcium [Mass/Vol] 8.2 mg/dL Critically low 8.5-10.1 [facility] Comment on above: Performed By: #### C BC #### [facility] Laboratory [address] [place] [address] Dr. Reid Garsia Chloride [Moles/Vol] 106 mmol/L Normal 98-107 [facility] Comment on above: Performed By: #### C BC #### [facility] Laboratory [address] [place] [address] Dr. Reid Garsia CO2 [Moles/Vol] 26.3 mmol/L Normal 21.0-32.0 [facility] Comment on above: Performed By: #### C BC #### [facility] Laboratory [address] [place] [address] Dr. Reid Garsia Creatinine [Mass/Vol] 0.92 mg/dL Normal 0.70-1.30 [facility] Comment on above: Performed By: #### C BC #### [facility] Laboratory [address] [place] [address] Dr. Reid Garsia EGFR-AF KITT[place]IAN >60 Normal >=60 [facility] Comment on above: Performed By: #### C BC #### [facility] Laboratory [address] [place] [address] Dr. Reid Garsia EGFR-NON AF [place]IAN >60 Normal >=60 [facility] Comment on above: Performed By: #### C BC #### [facility] Laboratory [address] [place] [address] Dr. Reid Garsia Globulin (S) [Mass/Vol] 3.0 g/dL Normal [facility] Comment on above: Performed By: #### C BC #### [facility] [address] [place] [address] Dr. Reid Garsia Glucose [Mass/Vol] 105 mg/dL Normal 74-106 [facility] Comment on above: Performed By: #### C BC #### [facility] Laboratory [address] [place] [address] Dr. Reid Garsia Potassium [Moles/Vol] 3.1 mmol/L Critically low 3.5-5.1 [facility] Comment on above: Performed By: #### C BC #### [facility] Laboratory [address] [place] [address] Dr. Reid Garsia Protein [Mass/Vol] 6.0 g/dL Critically low 6.4-8.2 [facility] Comment on above: Performed By: #### C BC #### [facility] Laboratory [address] [place] [address] Dr. Reid Garsia Sodium [Moles/Vol] 143 mmol/L Normal 136-145 [facility] Comment on above: Performed By: #### C BC #### [facility] Laboratory [address] [place] [address] Dr. Reid Garsia Urea nitrogen [Mass/Vol] 21.0 mg/dL Critically high 7.0-18.0 [facility] Comment on above: Performed By: #### C BC #### [facility] Laboratory [address] [place] [address] Dr. Reid Garsia Urea nitrogen/Creatinine [Mass ratio] 22.8 mg/mg Normal [facility] Comment on above: Performed By: #### C BC #### [facility] Laboratory [address] [place] [address] Dr. Reid Garsia CBC with Auto Differentialon 11-17-2021 Absolute Eos # 0.00 [facility] Absolute Lymph # 0.60 Low [facility] Absolute [place] # 0.60 [facility] Basophils (Bld) [#/Vol] 0.00 10*3/uL [facility] Basophils/100 WBC (Bld) 0 % 0 - 2 % [facility] Differential Type YES [facility] Eosinophils/100 WBC (Bld) 0 % 0 - 5 % [facility] Hematocrit (Bld) [Volume fraction] 49.3 % 41 - 53 % [facility] Hemoglobin (Bld) [Mass/Vol] 16.7 g/dL 13.5 - 17.5 g/dL [facility] Interpretation and review of laboratory results Abnormal [facility] Lymphocytes/100 WBC (Bld) 7 % Low 13 - 44 % [facility] MCH (RBC) [Entitic mass] 29.5 pg 26 - 34 pg [facility] MCHC (RBC) [Mass/Vol] 33.9 g/dL 31 - 37 g/dL B [facility] MCV (RBC) [Entitic vol] 87.2 fL 80 - 100 fL [facility] Monocytes/100 WBC (Bld) 7 % 5 - 9 % [facility] Platelet distribution width (Bld) [Ratio] 13.8 % 12.1 - 15.2 % [facility] Platelets (Bld) [#/Vol] 282 10*3/uL [facility] RBC (Bld) [#/Vol] 5.66 10*6/uL 4.5 - 5.9 m/uL B [facility] Segmented neutrophils/100 WBC (Bld) 86 % High 39 - 75 % [facility] Segs Absolute 7.80 High [facility] WBC (Bld) [#/Vol] 9.1 10*3/uL [facility] [place] CBC with Diffon 11-17-2021 Abs. Basophil 0.00 k/uL Normal 0.0-0.2 [facility] Comment on above: Performed By: #### L IP, CMPX, CDP #### [facility] Lab [address], [place] [id number] Sanitation Laborer: Ori Quiroz MD Abs.Neutrophil (Seg) 7.80 k/uL High 2.1-6.5 [facility] Comment on above: Performed By: #### L IP, CMPX, CDP #### [facility] [address] [place] [address] Sanitation Laborer: Ori Quiroz MD Auto Diff Performed YES Normal [facility] Comment on above: Performed By: #### L IP, CMPX, CDP #### [facility] [address] [place] [address] Sanitation Laborer: Ori Quiroz MD Basophils/100 WBC (Bld) 0 % Normal 0-2 [facility] Comment on above: Performed By: #### L IP, CMPX, CDP #### [facility] [address] [place] [address] Sanitation Laborer: Ori Quiroz MD Eosinophils (Bld) [#/Vol] 0.00 10*3/uL Normal 0.0-0.4 [facility] Comment on above: Performed By: #### L IP, CMPX, CDP #### [facility] [address] [place] [address] Sanitation Laborer: Ori Quiroz MD Eosinophils/100 WBC (Bld) 0 % Normal 0-5 [facility] Comment on above: Performed By: #### L IP, CMPX, CDP #### [facility] [address] [place] [address] Sanitation Laborer: Ori Quiroz MD Erythrocyte distribution width (RBC) [Ratio] 13.8 % Normal 12.1-15.2 [facility] Comment on above: Performed By: #### L IP, CMPX, CDP #### [facility] [address] [place] [address] Sanitation Laborer: Ori Quiroz MD Hematocrit (Bld) [Volume fraction] 49.3 % Normal 41-53 [facility] Comment on above: Performed By: #### L IP, CMPX, CDP #### [facility] [address], [place] [id number] Sanitation Laborer: Ori Quiroz MD Hemoglobin (Bld) [Mass/Vol] 16.7 g/dL Normal 13.5-17.5 [facility] Comment on above: Performed By: #### L IP, CMPX, CDP #### [facility] [address], [place] [phone] Sanitation Laborer: Ori Quiroz MD Lymphocytes (Bld) [#/Vol] 0.60 10*3/uL Low 1.0-4.8 [facility] Comment on above: Performed By: #### L IP, CMPX, CDP #### [facility] [address] [place] [address] Sanitation Laborer: Ori Quiroz MD Lymphocytes/100 WBC (Bld) 7 % Low 13-44 [facility] Comment on above: Performed By: #### L IP, CMPX, CDP #### [facility] [address], [place] [phone] Sanitation Laborer: Ori Quiroz MD MCH (RBC) [Entitic mass] 29.5 pg Normal 26-34 [facility] Comment on above: Performed By: #### L IP, CMPX, CDP #### [facility] [address], [place] [phone] Sanitation Laborer: Ori Quiroz MD MCHC (RBC) [Mass/Vol] 33.9 g/dL Normal 31-37 [facility] Comment on above: Performed By: #### L IP, CMPX, CDP #### [facility] [address] [place] [address] Sanitation Laborer: Ori Quiroz MD MCV (RBC) [Entitic vol] 87.2 fL Normal 80-100 [facility] Comment on above: Performed By: #### L IP, CMPX, CDP #### [facility] [address], [place] [phone] Sanitation Laborer: Ori Quiroz MD Monocytes (Bld) [#/Vol] 0.60 10*3/uL Normal 0.0-1.0 [facility] Comment on above: Performed By: #### L IP, CMPX, CDP #### [facility] [address], [place] [phone] Sanitation Laborer: Ori Quiroz MD Monocytes/100 WBC (Bld) 7 % Normal 5-9 [facility] Comment on above: Performed By: #### L IP, CMPX, CDP #### [facility] [address] [place] [address] [phone] Sanitation Laborer: Ori Quiroz MD Neutrophil (Seg) 86 % High 39-75 [facility] Comment on above: Performed By: #### L IP, CMPX, CDP #### [facility] [address] [place] [address] Sanitation Laborer: Ori Quiroz MD Platelets (Bld) [#/Vol] 282 10*3/uL Normal 140-450 [facility] Comment on above: Performed By: #### L IP, CMPX, CDP #### [facility] [address] [place] [address] Sanitation Laborer: Ori Quiroz MD RBC (Bld) [#/Vol] 5.66 10*6/uL Normal 4.5-5.9 [facility] Comment on above: Performed By: #### L IP, CMPX, CDP #### [facility] [address], [place] [phone] Sanitation Laborer: Ori Quiroz MD WBC (Bld) [#/Vol] 9.1 10*3/uL Normal 3.5-11.0 [facility] Comment on above: Performed By: #### L IP, CMPX, CDP #### [facility] [address] [phone] Sanitation Laborer: Ori Quiroz MD Comp Metabolic Pr/rfx MGon 0 11-17-2021 (cont.) Normal [facility] Comment on above: Result Comment: Aver age GFR for 60-69 years old: 85 mL/min/1.73sq m Chronic Kidney Disease: <60 mL/min/1.73sq m Kidney failure: <15 mL/min/1.73sq m eGFR calculated using average adult body mass. Additional eGFR calculator available at: http://www.Break30/multiple_crcl_2011.htm Performed By: #### L IP, CMPX, CDP #### [facility] [address] [place] [address] Sanitation Laborer: Ori Quiroz MD Albumin [Mass/Vol] 4.3 g/dL Normal 3.5-5.2 [facility] Comment on above: Performed By: #### L IP, CMPX, CDP #### [facility] [address] [place] [address] Sanitation Laborer: Ori Quiroz MD Alkaline Phos 106 U/L Normal 40-129 [facility] Comment on above: Performed By: #### L IP, CMPX, CDP #### [facility] [address] [phone] Sanitation Laborer: Ori Quiroz MD ALT [Catalytic activity/Vol] 35 U/L Normal 5-41 [facility] Comment on above: Performed By: #### L IP, CMPX, CDP #### [facility] [address] [place] [address] Sanitation Laborer: Ori Quiroz MD Anion gap [Moles/Vol] 16 mmol/L Normal 9-17 [facility] Comment on above: Performed By: #### L IP, CMPX, CDP #### [facility] [address], [place] [phone] Sanitation Laborer: Ori Quiroz MD AST [Catalytic activity/Vol] 39 U/L Normal <40 [facility] Comment on above: Performed By: #### L IP, CMPX, CDP #### [facility] [address], [place] [phone] Sanitation Laborer: Ori Quiroz MD Bilirubin [Mass/Vol] 0.52 mg/dL Normal 0.30-1.20 [facility] Comment on above: Performed By: #### L IP, CMPX, CDP #### [facility] [address] [place] [address] Sanitation Laborer: Ori Quiroz MD BUN/CRE Ratio 18 Normal 9-20 [facility] Comment on above: Performed By: #### L IP, CMPX, CDP #### [facility] [address], [place] [phone] Sanitation Laborer: Ori Quiroz MD Calcium [Mass/Vol] 8.9 mg/dL Normal 8.6-10.4 [facility] Comment on above: Performed By: #### L IP, CMPX, CDP #### [facility] [address], [place] [phone] Sanitation Laborer: Ori Quiroz MD Chloride [Moles/Vol] 100 mmol/L Normal 98-107 [facility] Comment on above: Performed By: #### L IP, CMPX, CDP #### [facility] [address], [place] [phone] Sanitation Laborer: Ori Quiroz MD CO2 [Moles/Vol] 21 mmol/L Normal 20-31 [facility] Comment on above: Performed By: #### L IP, CMPX, CDP #### [facility] [address] [place] [address] Sanitation Laborer: Ori Quiroz MD Creatinine [Mass/Vol] 2.10 mg/dL High 0.70-1.20 [facility] Comment on above: Performed By: #### L IP, CMPX, CDP #### [facility] [address], [place] [phone] Sanitation Laborer: Ori Quiroz MD GFR, Amer 39 mL/min Low >60 [facility] Comment on above: Performed By: #### L IP, CMPX, CDP #### [facility] [address], [place] [phone] Sanitation Laborer: Ori Quiroz MD GFR,non Amer 32 mL/min Low >60 [facility] Comment on above: Performed By: #### L IP, CMPX, CDP #### [facility] [address], [place] [phone] Sanitation Laborer: Ori Quiroz MD Glucose [Mass/Vol] 129 mg/dL High 70-99 [facility] Comment on above: Performed By: #### L IP, CMPX, CDP #### [facility] [address], [place] [phone] Sanitation Laborer: Ori Quiroz MD Potassium [Moles/Vol] 3.7 mmol/L Normal 3.7-5.3 [facility] Comment on above: Performed By: #### L IP, CMPX, CDP #### [facility] [address], [place] [phone] Sanitation Laborer: Ori Quiroz MD Protein [Mass/Vol] 7.3 g/dL Normal 6.4-8.3 [facility] Comment on above: Performed By: #### L IP, CMPX, CDP #### [facility] [address], [place] [phone] Sanitation Laborer: Ori Quiroz MD Sodium [Moles/Vol] 137 mmol/L Normal 135-144 [facility] Comment on above: Performed By: #### L IP, CMPX, CDP #### [facility] [address] [place] [address] Sanitation Laborer: Ori Quiroz MD Urea nitrogen [Mass/Vol] 37 mg/dL High 8-23 [facility] Comment on above: Performed By: #### L IP, CMPX, CDP #### [facility] [address] [place] [address] Sanitation Laborer: Ori Quiroz MD Comprehensive Metabolic Pane l w/ Reflex to MGon 11-17-2021 Albumin [Mass/Vol] 4.3 g/dL 3.5 - 5.2 g/dL [facility] ALP (Bld) [Catalytic activity/Vol] 106 U/L 40 - 129 U/L [facility] ALT [Catalytic activity/Vol] 35 U/L 5 - 41 U/L [facility] Anion gap [Moles/Vol] 16 mmol/L 9 - 17 mmol/L [facility] AST [Catalytic activity/Vol] 39 U/L <40 [facility] Bilirubin [Mass/Vol] 0.52 mg/dL 0.30 - 1.20 mg/dL [facility] Calcium [Mass/Vol] 8.9 mg/dL 8.6 - 10. 4 mg/dL [facility] Chloride [Moles/Vol] 100 mmol/L 98 - 107 mmol/L [facility] CO2 [Moles/Vol] 21 mmol/L 20 - 31 mmol/L [facility] Creatinine [Mass/Vol] 2.1 mg/dL High 0.70 - 1.20 mg/dL [facility] Free PSA/Total PSA [Mass fraction] 7.3 g/dL 6.4 - 8.3 g/dL [facility] GFR 39 mL/min Low >60 [facility] GFR Non- 32 mL/min Low >60 [facility] GFR/1.73 sq M.predicted MDRD (S/P/Bld) [Vol rate/Area] [facility] Comment on above: Average GFR for 60-6 9 years old: 85 mL/min/1.73sq m Chronic Kidney Disease: <60 mL/min/1.73sq m Kidney failure: <15 mL/min/1.73sq m eGFR calculated using average adult body mass. Additional eGFR calculator available at: http://www.Break30/multiple_crcl_2012.htm Glucose [Mass/Vol] 129 mg/dL High 70 - 99 mg/dL [facility] Interpretation and review of laboratory results Abnormal [facility] Potassium [Moles/Vol] 3.7 mmol/L 3.7 - 5.3 mmol/L [facility] Sodium [Moles/Vol] 137 mmol/L 135 - 144 mmol/L [facility] Urea nitrogen (BldV) [Mass/Vol] 37 mg/dL High 8 - 23 mg/dL [facility] Urea nitrogen/Creatinine (Bld) [Mass ratio] 18 [facility] Lipaseon 11-17-2021 Lipase [Catalytic activity/Vol] 39 U/L Normal 13-60 [facility] Comment on above: Performed By: #### L IP, CMPX, CDP #### [facility] [address] [place] [address] Sanitation Laborer: Ori Quiroz MD Lipase [Catalytic activity/Vol] 39 U/L 13 - 60 U/L [facility] No Panel Informationon 11-17 [facility] Basic Metabolic Panel w/ Ref jake to MGOrdered By: Jayden Anderson on 10-02-2020 Anion gap [Moles/Vol] 11 mmol/L 9 - 17 mmol/L [facility] Work Phone: Calcium [Mass/Vol] 8.9 mg/dL 8.6 - 10. 4 mg/dL [facility] Work Phone: Chloride [Moles/Vol] 96 mmol/L Low 98 - 107 mmol/L [facility] [employer] Work Phone: CO2 [Moles/Vol] 27 mmol/L 20 - 31 mmol/L [employer] Phone: Creatinine [Mass/Vol] 0.74 mg/dL 0.70 - 1.20 mg/dL [employer] Phone: GFR >60 >60 mL/min [employer] Phone: GFR Non- >60 >60 mL/min [facility] Phone: GFR/1.73 sq M.predicted MDRD (S/P/Bld) [Vol rate/Area] [employer] Phone: Comment on above: Average GFR for 60-6 9 years old: 85 mL/min/1.73sq m Chronic Kidney Disease: <60 mL/min/1.73sq m Kidney failure: <15 mL/min/1.73sq m eGFR calculated using average adult body mass. Additional eGFR calculator available at: http://www.Break30/multiple_crcl_2012.htm GFR/1.73 sq M.predicted MDRD (S/P/Bld) [Vol rate/Area] NOT REPORTED [facility] Phone: Glucose [Mass/Vol] 268 mg/dL High 70 - 99 mg/dL [facility] [employer] Phone: Interpretation and review of laboratory results Abnormal [facility] Phone: Potassium [Moles/Vol] 3.8 mmol/L 3.7 - 5.3 mmol/L [facility] Phone: Sodium [Moles/Vol] 134 mmol/L Low 135 - 144 mmol/L [facility] Phone: Urea nitrogen (BldV) [Mass/Vol] 17 mg/dL 8 - 23 mg/dL [employer] Phone: Urea nitrogen/Creatinine (Bld) [Mass ratio] 23 High [facility] Phone: Brain Natriuretic PeptideOrd ered By: Jayden Anderson on 10-02-2020 BNP Interpretation Pro-BNP Reference Range: [employer] Phone: Comment on above: Rule Out: <300 [place] Zone: Age <50 300-450 Age 50-75 300-900 Age >75 300-1800 Usually represents mild to moderate HF but other cardiopulmonary causes cannot be ruled out. Rule In: Age <50 >450 Age 50-75 >900 Age >75 >1800 Natriuretic peptide B (Bld) [Mass/Vol] 60 pg/mL <300 [employer] Phone: Comment on above: Pro-BNP results klarissa ot be compared to BNP results. CBC Auto DifferentialOrdered By: Jayden Anderson on 10-02-2020 Absolute Eos # 0.00 [email or web address] [facility] Work Phone: Absolute Immature Granulocyte NOT REPORTED [employer] Phone: Absolute Lymph # 0.70 Low [facility] [facility] Work Phone: Absolute [place] # 0.40 [email or web address] [facility] Work Phone: Basophils (Bld) [#/Vol] 0.00 10*3/uL [facility]20/20 [employer] Work Phone: Basophils/100 WBC (Bld) 0 % 0 - 2 % [facility] Phone: Differential Type YES [email or web address] [facility] [employer] Work Phone: Eosinophils/100 WBC (Bld) 0 % 0 - 5 % [employer] Phone: Hematocrit (Bld) [Volume fraction] 46.2 % 41 - 53 % [employer] Phone: Hemoglobin.gastrointes tinal spec 1 Ql (Stl) 16.0 g/dL 13.5 - 17.5 g/dL [employer] Phone: Immature Granulocytes NOT REPORTED 0 % M [facility]20/20 [employer] Work Phone: Interpretation and review of laboratory results Abnormal [employer] Phone: Lymphocytes/100 WBC (Bld) 16 % 13 - 44 % [employer] Work Phone: MCH (RBC) [Entitic mass] 29.7 pg 26 - 34 pg [employer] Phone: MCHC (RBC) [Mass/Vol] 34.6 g/dL 31 - 37 g/dL M [employer] Work Phone: MCV (RBC) [Entitic vol] 85.8 fL 80 - 100 fL [employer] Work Phone: Monocytes/100 WBC (Bld) 8 % 5 - 9 % [employer] Work Phone: NRBC Automated NOT REPORTED per 100 WBC [facility] [employer] Work Phone: Platelet distribution width (Bld) [Ratio] 12.7 % 12.1 - 15.2 % [employer] Phone: Platelet Estimate NOT REPORTED [employer] Phone: Platelet mean volume (Bld) [Entitic vol] NOT REPORTED 6.0 - 12.0 fL [employer] Phone: Platelets (Bld) [#/Vol] 195 10*3/uL [employer] Phone: RBC (Bld) [#/Vol] 5.38 10*6/uL 4.5 - 5.9 m/uL [employer] Work Phone: RBC (Bld) [#/Vol] NOT REPORTED [employer] Phone: Segmented neutrophils/100 WBC (Bld) 76 % High 39 - 75 % [facility] Work Phone: Segs Absolute 3.40 [employer] Work Phone: WBC (Bld) [#/Vol] 4.5 10*3/uL [employer] Phone: WBC (Bld) [#/Vol] NOT REPORTED [employer] Phone: Lactic AcidOrdered By: Kartik Anderson on 10-02-2020 Lactate [Moles/Vol] 1.4 mmol/L 0.5 - 2. 2 mmol/L [facility] [employer] Work Phone: Microscopic UrinalysisOrdere d By: Jayden Anderson on 10-02-2020 - [facility] [employer] Work Phone: Amorphous, UA NOT REPORTED None [facility] Work Phone: Bacteria, UA 2+ Abnormal None [facility] Work Phone: Casts UA NOT REPORTED /LPF [facility] Work Phone: Crystals, UA NOT REPORTED None /HPF [facility] Work Phone: Epithelial Cells UA 0 TO 2 /HPF [facility] Work Phone: Interpretation and review of laboratory results Abnormal [facility] [employer] Work Phone: Mucus, UA NOT REPORTED None [facility] Work Phone: Other Observations UA NOT REPORTED NOT REQ. M [facility] Work Phone: RBC, UA NOT REPORTED [facility] Work Phone: Renal Epithelial, UA NOT REPORTED 0 /HPF [facility] Work Phone: Trichomonas, UA NOT REPORTED None [facility] Work Phone: WBC, UA 0 TO 2 0 /HPF [facility] Work Phone: Yeast, UA NOT REPORTED None [facility] Work Phone: TroponinOrdered By: Susanne Anderson on 10-02-2020 Troponin Interp NOT REPORTED [facility] [email or web address] [facility] Work Phone: Troponin T NOT REPORTED <0.03 ng/mL [facility] Work Phone: Troponin, High Sensitivity 12 ng/L 0 - 22 ng/L [facility] [employer] Work Phone: Comment on above: High Sensitivity Troponin values cannot be compared with other Troponin methodologies. Patients with high levels of Biotin oral intake (i.e >5mg/day) may have falsely decreased Troponin levels. Samples collected within 8 hours of biotin intake may require additional information for diagnosis. Urinalysis, reflex to micros copicOrdered By: Jayden Anderson on 10-02-2020 Bilirubin Urine Negative NEGATIVE [email or web address] [facility] Work Phone: Color, UA ANA Abnormal YELLOW [employer] Work Phone: Glucose, Ur 250 mg/dL Abnormal NEGATIVE [employer] Work Phone: Interpretation and review of laboratory results Abnormal [employer] Phone: Ketones Ql (U) SMALL Abnormal NEGATIVE [employer] [employer] Work Phone: Leukocyte esterase Test strip Ql (U) Negative NEGATIVE [employer] Phone: Nitrite, Urine Positive Abnormal NEGATIVE [email or web address] [facility] Work Phone: pH, UA 6.0 [employer] Phone: Protein, UA 1+ Abnormal NEGATIVE [employer] Phone: Specific [place], UA 1.020 [employer] Phone: Turbidity UA CLEAR CLEAR Embedly Phone: Urinalysis Comments [employer] Phone: Urine Hgb TRACE Abnormal NEGATIVE [employer] Phone: Urobilinogen, Urine Normal Normal [employer] Phone: XR CHEST PORTABLEOrdered By: Jayden Anderson on 10-02-2020 SARS-CoV-2 (COVID-19) Ab IA Ql EXAM: XR CHEST PORTABLE HISTORY: Reason for exam:->SOB, COVID-19 (+) 60-year-old male. COMPARISON: None. TECHNIQUE: AP upright portable chest 1048 hours. FINDINGS: Minimal patchy groundglass opacity overlying the left anterior fifth rib. Heart size normal. Right lung clear. No effusion or adenopathy. Embedly Phone: Small patchy groundglass opacity overlying the left anterior fifth rib suspicious for a small area of pneumonia. [employer]edly Phone: James, Mhpn Incoming Radiant Results From bookjam/[employer] - 10/02/2020 11:13 AM EDT EXAM: XR CHEST PORTABLE HISTORY: Reason for exam:->SOB, COVID-19 (+) 60-year-old male. COMPARISON: None. TECHNIQUE: AP upright portable chest 1048 hours. FINDINGS: Minimal patchy groundglass opacity overlying the left anterior fifth rib. Heart size normal. Right lung clear. No effusion or adenopathy. IMPRESSION: Small patchy groundglass opacity overlying the left anterior fifth rib suspicious for a small area of pneumonia. [employer]edly Phone: Vital Signs Date Time Vital Sign Value Performing Clinician Faci lity 03-01-2024 13:47-0400 Body height 170.2 cm Theodore Jacques [employer] [facility] 03-01-2024 13:47-0400 Body mass index (BMI) [Ratio] 40.41 kg/m2 Theodore [employer] Phone: [facility] 03-01-2024 13:47-0400 Body weight 117.03 kg Theodore Jacques [employer] Phone: [facility] [employer] 09-11-2022 09:00-0400 Hourly Rounding Theodore Jacques [employer] [facility] 09-11-2022 09:00-0400 Promise to Return Theodore Jacques [facility] 09-11-2022 08:04-0400 Diastolic blood pressure 88 mm[Hg] Theodore Jacques [facility] 09-11-2022 08:04-0400 Heart rate 72 /min Theodore Jacques [facility] 09-11-2022 08:04-0400 Systolic blood pressure 162 mm[Hg] Theodore Jacques [facility] 09-11-2022 08:02-0400 Heart rate 51 /min Theodore Jacques [facility] 09-11-2022 08:02-0400 SaO2% (BldA) [Mass fraction] 99 % Theodore Jacques [facility] 09-11-2022 08:02-0400 Body temperature 97.7 [degF] Theodore Jacques [facility] 09-11-2022 08:00-0400 Hourly Rounding Theodore Jacques [facility] 09-11-2022 08:00-0400 Promise to Return Theodore Jacques [facility] 09-11-2022 07:00-0400 Hourly Rounding Theodore Jacques [facility] 09-11-2022 07:00-0400 Promise to Return Theodore Jacques [facility] 09-11-2022 04:30-0400 Blood Pressure Location Theodore Jacques [facility] 09-11-2022 04:30-0400 Body temperature 97.7 [degF] Theodore Jacques [facility] 09-11-2022 04:30-0400 Heart rate 55 /min Theodore Jacques [facility] 09-11-2022 04:30-0400 Respiratory rate 18 /min Theodore Jacques [facility] 09-11-2022 04:30-0400 SaO2% (BldA) [Mass fraction] 97 % Theodore Jacques [facility] 09-11-2022 01:00-0400 Body temperature 97.88 [degF] Theodore Jacques [facility] 09-11-2022 01:00-0400 Heart rate 61 /min Theodore Jacques [facility] 09-11-2022 01:00-0400 Respiratory rate 18 /min Theodore Jacques [facility] 09-11-2022 01:00-0400 SaO2% (BldA) [Mass fraction] 97 % Theodore Jacques [facility] 09-10-2022 22:12-0400 Heart rate 64 /min Theodore Jacques [facility] 09-10-2022 20:04-0400 Heart rate 71 /min Theodore Jacques [facility] 09-10-2022 20:02-0400 Mean blood pressure 102 mm[Hg] Theodore Jacques [facility] 09-10-2022 18:00-0400 Body temperature 98.06 [degF] Theodore Jacques [facility] 09-10-2022 17:06-0400 Body temperature 97.7 [degF] Theodore Jacques [facility] 09-10-2022 17:06-0400 Mean blood pressure 122 mm[Hg] Theodore Jacques [facility] 09-10-2022 17:06-0400 Respiratory rate 16 /min Theodore Jacques [facility] 09-10-2022 17:00-0400 Mean blood pressure 127 mm[Hg] Theodore Brown [facility] 09-10-2022 17:00-0400 Respiratory rate 12 /min Theodore Jacques [facility] 09-10-2022 16:50-0400 Mean blood pressure 100 mm[Hg] Theodore Brown [facility] 09-10-2022 16:50-0400 Respiratory rate 19 /min Theodore Jacques [facility] 09-10-2022 16:20-0400 Blood Pressure Location Theodore Jacques [facility] 09-10-2022 16:10-0400 Respiratory rate 1 /min Theodore Jacques [facility] 09-10-2022 16:08-0400 Body temperature 97.52 [degF] Theodore Jacques [facility] 09-10-2022 10:47-0400 Mean blood pressure 108 mm[Hg] Theodore Jacques [facility] 09-10-2022 10:47-0400 Heart rate 60 /min Theodore Jacques [facility] 09-10-2022 10:46-0400 Mean blood pressure 100 mm[Hg] Theodore Jacques [facility] 08-26-2022 09:00-0400 Body temperature 98.24 [degF] Theodore Jacques [facility] 08-26-2022 09:00-0400 Diastolic blood pressure 91 mm[Hg] Theodore Jacques [facility] 08-26-2022 09:00-0400 Heart rate 53 /min Theodore Jacques [facility] 08-26-2022 09:00-0400 Mean blood pressure 131 mm[Hg] Theodore Jacques [facility] 08-26-2022 09:00-0400 Systolic blood pressure 211 mm[Hg] Theodore Jacques [facility] 08-26-2022 08:59-0400 Heart rate 59 /min Theodore Jacques [facility] 08-26-2022 08:59-0400 Respiratory rate 18 /min Theodore Jacques [facility] 08-26-2022 08:59-0400 SaO2% (BldA) [Mass fraction] 98 % Theodore Jacques [facility] 08-26-2022 08:58-0400 Diastolic blood pressure 92 mm[Hg] Theodore Jonathan [facility] 08-26-2022 08:58-0400 Mean blood pressure 125 mm[Hg] Theodore Jacques [facility] 08-26-2022 08:58-0400 Systolic blood pressure 191 mm[Hg] Theodore Brown [facility] 06-17-2022 15:23-0500 Blood Pressure Location Lisa ESPAÑAL [facility] [place] 06-17-2022 15:23-0500 Diastolic blood pressure 102 mm[Hg] Lisa NILL [facility] [place] 06-17-2022 15:23-0500 Heart rate 72 /min Lisa NILL [facility] [place] 06-17-2022 15:23-0500 Respiratory rate 16 /min Lisa NILL [facility] [place] 06-17-2022 15:23-0500 Systolic blood pressure 162 mm[Hg] Lisa NILL [facility] [place] 05-29-2022 11:50-0500 Hourly Round[address] Theodore Jacques [facility] 05-29-2022 11:50-0500 Promise to Return Theodore Jacques [facility] 05-29-2022 11:23-0500 Heart rate 57 /min Theodore Jacques [facility] 05-29-2022 11:23-0500 SaO2% (BldA) [Mass fraction] 97 % Theodore Jacques [facility] 05-29-2022 11:22-0500 Diastolic blood pressure 76 mm[Hg] Theodore Brown [facility] 05-29-2022 11:22-0500 Mean blood pressure 98 mm[Hg] Theodore Brown [facility] 05-29-2022 11:22-0500 Systolic blood pressure 143 mm[Hg] Theodore Brown [facility] 05-29-2022 11:22-0500 Body temperature 97.88 [degF] Theodore Jacques [facility] 05-29-2022 10:28-0500 Blood Pressure Location Theodore Jacques [facility] 05-29-2022 10:28-0500 Diastolic blood pressure 69 mm[Hg] Theodore Brown [facility] 05-29-2022 10:28-0500 Mean blood pressure 87 mm[Hg] Theodore Jacques [facility] 05-29-2022 10:28-0500 Systolic blood pressure 122 mm[Hg] Theodore Jacques [facility] 05-29-2022 10:09-0500 Hourly Rounding Theodore Jacques [facility] 05-29-2022 10:09-0500 Promise to Return Theodore Jacques [facility] 05-29-2022 09:00-0500 Hourly Rounding Theodore Jacques [facility] 05-29-2022 09:00-0500 Promise to Return Theodore Jacques [facility] 05-29-2022 08:25-0500 Heart rate 58 /min Theodore Jacques [facility] 05-29-2022 08:25-0500 SaO2% (BldA) [Mass fraction] 95 % Theodore Jacques [facility] 05-29-2022 08:25-0500 Body temperature 98.06 [degF] Theodore Jacques [facility] 05-29-2022 08:00-0500 Diastolic blood pressure 90 mm[Hg] Theodore Jacques [facility] 05-29-2022 08:00-0500 Mean blood pressure 116 mm[Hg] Theodore Jacques [facility] 05-29-2022 08:00-0500 Respiratory rate 16 /min Theodore Jacques [facility] 05-29-2022 08:00-0500 Systolic blood pressure 168 mm[Hg] Theodore Jacques [facility] 05-29-2022 07:59-0500 Heart rate 62 /min Theodore Jacques [facility] 05-29-2022 04:00-0500 Body temperature 98.6 [degF] Theodore Jacques [facility] 05-29-2022 04:00-0500 Heart rate 76 /min Theodore Jacques [facility] 05-29-2022 04:00-0500 SaO2% (BldA) [Mass fraction] 94 % Theodore Jacques [facility] 05-28-2022 23:00-0500 Body temperature 98.06 [degF] Theodore Jacques [facility] 05-28-2022 23:00-0500 Heart rate 78 /min Theodore Jacques [facility] 05-28-2022 21:32-0500 Heart rate 87 /min Theodore Jacques [facility] 05-28-2022 19:38-0500 Mean blood pressure 109 mm[Hg] Theodore Jacques [facility] 05-28-2022 16:05-0500 Mean blood pressure 130 mm[Hg] Theodore Jacques [facility] 05-28-2022 16:05-0500 Body temperature 98.24 [degF] Theodore Jacques [facility] 05-28-2022 14:22-0500 Mean blood pressure 120 mm[Hg] Theodore Jacques [facility] 05-28-2022 12:05-0500 Respiratory rate 16 /min Theodore Jacques [facility] 05-28-2022 11:55-0500 Respiratory rate 15 /min Theodore Jacques [facility] 05-28-2022 11:50-0500 Respiratory rate 17 /min Theodore [employer] [facility] 05-06-2022 09:59-0500 Blood Pressure Location Theodore Jacques [facility] 05-06-2022 09:59-0500 BP/Pulse Patient Position Theodore Jacques [facility] 05-06-2022 09:59-0500 Diastolic blood pressure 82 mm[Hg] Theodore Jacques [facility] 05-06-2022 09:59-0500 Heart rate 52 /min Theodore Jacques [facility] 05-06-2022 09:59-0500 Mean blood pressure 108 mm[Hg] Theodore Jacques [facility] 05-06-2022 09:59-0500 Respiratory rate 18 /min Theodore Jacques [facility] 05-06-2022 09:59-0500 Systolic blood pressure 160 mm[Hg] Theodore Jacques [facility] 05-06-2022 09:58-0500 Blood Pressure Location Theodore Jacques [facility] 05-06-2022 09:58-0500 Body temperature 98.24 [degF] Theodore Jacques [facility] 05-06-2022 09:58-0500 BP/Pulse Patient Position Theodore Jacques [facility] 05-06-2022 09:58-0500 Diastolic blood pressure 84 mm[Hg] Theodore Jacques [facility] 05-06-2022 09:58-0500 Heart rate 56 /min Theodore Jacques [facility] 05-06-2022 09:58-0500 Mean blood pressure 110 mm[Hg] Theodore Jacques [facility] 05-06-2022 09:58-0500 Respiratory rate 16 /min Theodore Jacques [facility] 05-06-2022 09:58-0500 SaO2% (BldA) [Mass fraction] 96 % Theodore Jacques [facility] 05-06-2022 09:58-0500 Systolic blood pressure 162 mm[Hg] Theodore Jacques [facility] 11-17-2021 14:30-0400 Diastolic blood pressure 74 mm[Hg] Comfort Mclaughlin MD Work Phone: [facility] 11-17-2021 14:30-0400 Systolic blood pressure 125 mm[Hg] Comfort Mclaughlin MD Work Phone: [facility] 11-17-2021 14:29-0400 Body temperature 97.7 [degF] Comfort Mclaughlin MD Work Phone: [facility] 11-17-2021 14:29-0400 Heart rate 68 /min Comfort Mclaughlin MD Work Phone: [facility] 11-17-2021 14:29-0400 Respiratory rate 18 /min Comfort Mclaughlin MD Work Phone: [facility] 11-17-2021 14:29-0400 SaO2% (BldA) [Mass fraction] 97 % Comfort Mclaughlin MD Work Phone: [facility] 10-02-2020 11:17-0400 Respiratory rate 20 /min Jayden Anderson MD Work Phone: [employer] Work Phone: 10-02-2020 11:17-0400 SaO2% (BldA) [Mass fraction] 94 % Jayden Anderson MD Work Phone: [facility] Work Phone: 10-02-2020 10:41-0400 Body height 172.7 cm Jayden Anderson MD Work Phone: [facility] Work Phone: 10-02-2020 10:41-0400 Body mass index (BMI) [Ratio] 37.25 kg/m2 Jayden Anderson MD Work Phone: [facility] Work Phone: 10-02-2020 10:41-0400 Body temperature 98.49 [degF] Jayden Anderson MD Work Phone: [facility] Work Phone: 10-02-2020 10:41-0400 Body weight 111.13 kg Jayden Anderson MD Work Phone: [facility] Work Phone: 10-02-2020 10:41-0400 Diastolic blood pressure 87 mm[Hg] Jayden Anderson MD Work Phone: [facility] Work Phone: 10-02-2020 10:41-0400 Heart rate 70 /min Jayden Anderson MD Work Phone: [facility] Work Phone: 10-02-2020 10:41-0400 Systolic blood pressure 176 mm[Hg] Jayden Anderson MD Work Phone: [employer] Work Phone: Encounters Encounter Date Encounter Type Care Provider Facility Start: 03-01-2024 End: 03-01-2024 Patient encounter procedure Theodore Jacques DO Work Phone: [facility] Comment on above: Pain in both knees, unspecified chronicity (Primary Dx) Start: 10-07-2022 End: 10-08-[address] KASIA ALICEA . Facility: Start: 09-10-2022 End: 09-11-2022 ambulatory Theodore Jacques Facility:[facility] Start: 09-10-2022 End: 09-11-2022 Observ[address] A Jonathan [facility] Start: 08-26-2022 End: 08-27-2022 ambulatory Theodore Cory Jonathan Facility:[facility] Start: 08-26-2022 End: 08-26-2022 Patient encounter procedure Theodore Cory Jonathan [facility] Start: 07-16-2022 End: 07-17-2022 ambulatory Lisa MOLINA Facility:[id number] Start: 07-14-2022 Encounter for preprocedural laboratory examination DR LISA MOLINA . [facility] Start: 07-12-2022 End: 07-13-[address] KASIA ALICEA . Facility: Start: 07-12-2022 End: 07-13-2022 Encounter for preprocedural laboratory examination DR KASIA ALICEA . Facility: Start: 06-17-2022 End: 06-18-2022 ambulatory Lisa MOLINA Facility:[facility] Start: 06-17-2022 End: 06-17-2022 Patient encounter procedure Lisa MOLINA [facility] Start: 06-03-2022 End: 06-04-[address] KASIA ALICEA . Facility: Start: 05-28-2022 End: 05-29-2022 ambulatory Theodore Jacques Facility:[facility] Start: 05-28-2022 End: 05-29-2022 Admission to same day surgery center Theodore Ray [facility] Start: 05-06-2022 End: 05-07-2022 ambulatory Theodore Cory Jacques Facility:[facility] Start: 05-06-2022 End: 05-06-2022 Patient encounter procedure Theodore Ray [facility] Start: 03-01-2022 Encounter for genera l adult medical examination without abnormal findings DR KASIA ALICEA . [facility] Start: 02-24-2022 End: 02-25-[address] KASIA ALICEA . Facility: Start: 02-24-2022 End: 02-25-2022 Encounter for general adult medical examination without abnormal findings DR KASIA ALICEA . Facility: Start: 02-21-2022 ambulatory Lisa MOLINA Facility :[facility] Start: 12-09-2021 End: 12-10-2021 ambulatory MAGALY SOTO Facility: Start: 12-05-2021 End: 12-06-2021 ambulatory MAGALY SOTO Facility: Start: 11-21-2021 End: 11-22-[address] KASIA ALICEA . Facility: Start: 11-17-2021 Emergency department patient visit KASIA Roth [facility] Start: 11-17-2021 End: 11-17-2021 Emergency department patient visit Comfort Mclaughlin MD Work Phone: [facility] Comment on above: Gastroenteritis (Lakia rios Dx); Acute renal insufficiency Start: 10-02-2020 End: 10-02-2020 Emergency department patient visit Jayden Anderson MD Work Phone: [facility] Comment on above: Acute cystitis with hematuria (Primary Dx); Pneumonia of left lower lobe due to infectious organism; History of COVID-19 Procedures Date Procedure Procedure Detail Performing Clinician Start: 03-01-2024 Radiologic examinati on knee 3 views Theodore Jacques DO Work Phone: Start: 05-28-2022 Total knee replacement Theodore Jacques Start: 02-24-[address] RAFAEL ALICEA . Comment on above: Performed By: #### [facility] #### [facility] [address] [place] [address] Dr. Reid Garsia Start: 11-17-2021 Assay of lipase Comfort wolf MD Work Phone: Start: 10-02-2020 Urinalysis microscop ic only Jayden Anderson MD Work Phone: Start: 10-02-2020 Urnls dip stick/tabl et rgnt auto w/o microscopy Jayden Anderson MD Work Phone: Start: 10-02-2020 Radiologic exam ches t single view Jayden Anderson MD Work Phone: Start: 10-02-2020 Ecg routine ecg w/le ast 12 lds w/i&r Jayden Anderson MD Work Phone: Start: 10-02-2020 BASIC METABOLIC PANE L W/ REFLEX TO MG FOR LOW K Jayden Anderson MD Work Phone: Start: 10-02-2020 Lactate [Moles/volum e] in Serum or Plasma Jayden Anderson MD Work Phone: Start: 10-02-2020 Natriuretic peptide Chr emi Anderson MD Work Phone: Start: 07-21-2014 Transrectal biopsy o f prostate using ultrasound guidance Theodore Jacques Plan of Treatment Date Care Activity Detail Author Start: 02-14-2024 Influenza vaccination Influenza Vacc ine (#1) [facility] Start: 2023 Pneumococcal Vaccine : 65+ Years (2 of 2 - PCV) Pneumococcal Vaccine: 65+ Years (2 of 2 - PCV) [facility] Start: 09-23-2022 ambulatory Ambulatory Facility:[facility] [place] Start: 02-13-2022 Influenza vaccination Flu vacc ine (Season Ended) [facility] [employer] Start: 10-02-2021 Creatinine measurement Creatinine mo nitoring Embedly Phone: Start: 10-02-2021 Potassium monitoring Potassium monit oring [employer] Phone: Start: 02-13-2021 Influenza vaccination Flu vacc ine (Season Ended) [employer] Phone: Start: 2008 Screening for malign ant neoplasm of colon Colon cancer screen colonoscopy Embedly Phone: Start: 2008 Shingles Vaccine (1 of 2) Shingles Vaccine (1 of 2) [facility] Start: 2003 Screening for malign ant neoplasm of colon [facility] Start: 1998 Diabetes screen Diabetes screen [employer] Phone: Start: 1998 Lipid panel [facility] [employer] Start: 1998 Prostate specific antigen measurement Prostate Specific Antigen (PSA) Screening or Monitoring [facility] Start: 1977 DTaP/Tdap/Td vaccine (1 - Tdap) DTaP/Tdap/Td vaccine (1 - Tdap) [facility] Start: 1976 Hepatitis C screening Hepatitis C sc reen [facility] Start: 1974 COVID-19 Vaccine (1) COVID-19 Vaccin e (1) [employer] Phone: Start: 1973 HIV screening HIV screen [facility] [employer] Start: 1970 Depression Screen Depression Screen [facility] Start: 1963 COVID-19 Vaccine (1) COVID-19 Vaccin e (1) JOAQUIN GUNDERSON [employer] Start: 1958 Hepatitis C screening Hepatitis C sc reesushila [employer] Phone: Start: 1958 Screening for malign ant neoplasm of colon [facility] End: 10-02-2020 Culture, Blood 1 Culture, Blood 1 Microbiology STAT One Time for 1 Occurrences starting 10/02/2020 until 10/02/2020 [facility] Work Phone: Comment on above: One Time for 1 Occur rences starting 10/02/2020 until 10/02/2020 Culture, Blood 1 [employer] Work Phone: End: 10-02-2020 Culture, Urine Culture, Urine Microbiology Routine Once for 1 Occurrences starting 10/02/2020 until 10/02/2020 Embedly Phone: Comment on above: Once for 1 Occurrenc es starting 10/02/2020 until 10/02/2020 Culture, Urine Culture, Urine Microbiology Routine 10/02/2020 11:45 AM EDT [facility] Work Phone: EKG 12 Lead EKG 12 Lead ECG STAT 10/02/2020 11:00 AM [employer] Work Phone: Immunizations Immunization Date Immunization Notes Care Provider Fa ciliabel 07-11-2021 influenza, unspecifi ed formulation Lisa MOLINA [facility] 07-11-2021 SARS-CoV-2 mRNA (gziesnetxzx-ktym-swqee se) vaccine Lisa MOLINA [facility] Comment on above: Result Comment: 2022: [id number] 07-11-2021 influenza virus vaccine, unspecified formulation Theodore Jacques DO Work Phone: [facility] 10-29-2020 SARS-CoV-2 (COVID-19 ) mRNA BNT-162b2 vax Lisa MOLINA [facility] 09-19-2020 SARS-CoV-2 (COVID-19 ) mRNA BNT-162b2 coy MOLINA [facility] [place] Payers Date Payer Category Payer Unknown [employer] [id number] 2022-Present [address] [place] [address] [id number] 1959 Unknown [id number] 1958 Unknown [id number] 1958 Unknown [id number] [id number] 1958 Unknown [id number] [id number] 1958 Unknown [id number] [id number] 1958 Unknown [id number] [id number] 1958 Unknown [id number] [id number] 1958 Unknown [id number] [id number] 1958 Unknown [id number] [id number] 1958 Unknown [id number] [id number] 1958 Unknown [id number] [id number] 1958 Unknown [id number] [id number] 1958 Unknown [id number] [id number] 1958 Unknown [id number] [id number] 1958 Unknown [id number] [id number] 1958 Unknown [id number] [id number] 1958 Unknown [id number] [id number] 1958 Unknown [id number] [id number] 1958 Unknown [id number] Social History Date Type Detail Facility Start: 10-02-2020 End: 02-26-2023 Tobacco smoking status [facility] Never smoker [facility] Work Phone: Start: 10-02-2020 Tobacco use and exposure Current user [facility] History of tobacco use [employer] [place] Start: 10-02-2020 Alcohol intake Current drinke r of alcohol (finding) [facility] Work Phone: Start: 10-02-2020 Alcohol Comment occas. Mesitis [employer] Work Phone: Start: 1960 Sex Assigned At Not on file M [facility]20/20 [employer] Work Phone: Exposure to SARS-CoV -2 (event) Yes [facility] Start: 11-07-2021 End: 11-17-2021 Exposure to SARS-CoV-2 (event) Not sure JOAQUIN GUNDERSON [employer] Start: 02-26-2023 Sex Assigned At Male F [facility] Tobacco smoking status Smokeless tobacco user within last 30 days [facility] [place] [facility] Comment on above: chew tobacco Tobacco smoking status No Smokin g Status Entered [facility] Start: 02-26-2023 Tobacco use and exposure Smokeless tobacco non-user [facility] Start: 03-01-2024 Alcoholic beverage intake Defer [facility] Start: 02-26-2023 History of Social function [facility] Start: 02-26-2023 Alcohol Comment Caffein intake : 1-2 cups per day [facility] Start: 1960 Sex assigned at Male [facility] Start: 02-25-2023 Gender identity Identifies as male gender (finding) [facility] Medical Equipment Procedure Code Equipment Code Equipment Origin al Text Equipment Identifier Dates KNEE TOTAL ROBOT ARTHROPLASTY Brown DO, Theodore A 05/28/22 Unknown Knee L FDA Start: 05-28-2022 KNEE TOTAL ROBOT ARTHROPLASTY Jonathan DO, Theodore A 05/28/22 Unknown Knee L FDA Start: 05-28-2022 KNEE TOTAL ROBOT ARTHROPLASTY Jonathan DO, Theodore A 05/28/22 Unknown Knee L FDA Start: 05-28-2022 KNEE TOTAL ROBOT ARTHROPLASTY Jonathan DO, Theodore A 05/28/22 Unknown Knee L FDA Start: 05-28-2022 KNEE TOTAL ROBOT ARTHROPLASTY Jonathan DO, Theodore A 05/28/22 Unknown Knee L FDA Start: 05-28-2022 KNEE TOTAL ROBOT ARTHROPLASTY Jonathan DO, Theodore A 05/28/22 Unknown Knee L FDA Start: 05-28-2022 KNEE TOTAL ROBOT ARTHROPLASTY Jonathan DO, Theodore A 05/28/22 Unknown Knee L FDA Start: 05-28-2022 KNEE TOTAL ROBOT ARTHROPLASTY Jonathan DO, Theodore A 05/28/22 Unknown Knee L FDA Start: 05-28-2022 KNEE TOTAL ROBOT ARTHROPLASTY Brown DO, Theodore A 05/28/22 Unknown Knee L FDA Start: 05-28-2022 KNEE TOTAL ROBOT ARTHROPLASTY Brown DO, Theodore A 05/28/22 Unknown Knee L FDA Start: 05-28-2022 KNEE TOTAL ROBOT ARTHROPLASTY Brown DO, Theodore A 05/28/22 Unknown Knee L FDA Start: 05-28-2022 KNEE TOTAL ROBOT ARTHROPLASTY Brown DO, Theodore A 05/28/22 Unknown Knee L FDA Start: 05-28-2022 KNEE TOTAL ROBOT ARTHROPLASTY Jonathan DO, Theodore A 05/28/22 Unknown Knee L FDA Start: 12-14-2022 KNEE TOTAL ROBOT ARTHROPLASTY Theodore Jacques DO 05/28/22 Unknown Knee L FDA Start: 05-28-2022 KNEE TOTAL ROBOT ARTHROPLASTY Theodore Jacques DO 05/28/22 Unknown Knee L FDA Start: 05-28-2022 KNEE TOTAL ROBOT ARTHROPLASTY Theodore Jacques DO 05/28/22 Unknown Knee L FDA Start: 05-28-2022 KNEE TOTAL ROBOT ARTHROPLASTY Theodore Jacques DO 09/10/22 Unknown Knee R FDA Start: 09-10-2022 KNEE TOTAL ROBOT ARTHROPLASTY Theodore Jacques DO 09/10/22 Unknown Knee R FDA Start: 09-10-2022 KNEE TOTAL ROBOT ARTHROPLASTY Theodore Jacques DO 09/10/22 Unknown Knee R FDA Start: 09-10-2022 KNEE TOTAL ROBOT ARTHROPLASTY Theodore Jacques DO 09/10/22 Unknown Knee R FDA Start: 09-10-2022 Functional Status Date Assessment Result Facility 08-26-2022 Functional Status No [facility] 06-17-2022 Functional Status N/A [facility] 05-06-2022 Functional Status No [facility] Clinical Notes 11-17-2021 to 03-01-2024 Theodore Jacques DO - 03/01/2024 2:00 PM EDT Note Date & Type Note Facility 03-01-2024 History of Present illness Narrative Images from the original note were not included. @ENCDATE@ daphne Moore is a 63 y.o. male who presents for Pain of the Left Knee and Pain of the Right Knee HPI: History of Present Illness The patient is a 63-year-old male here today to follow up on both of his knees. He underwent left total knee arthroplasty on 05/28/2022 and right total knee arthroplasty on 09/10/2022. He reports that his knees appear and feel normal. However, he experiences an unusual sensation when kneeling on concrete, describing it as feeling artificial. He has not attempted to kneel on the bed. As a [employer], he occasionally kneels on the kneeler at orth[employer] but finds the sensation strange and often ends up leaning back on the bench. He has been taking antibiotics prior to dental cleanings, as advised. Six weeks ago, he began experiencing pain in his right shoulder. The pain is absent during the day but presents as an ache at night. 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 SUBJECTIVE: MEDICATIONS: Current Outpatient Medications Medication Instructions ALPRAZolam (Xanax) 0.25 MG tablet TAKE ONE TABLET BY MOUTH THREE TIMES A DAY FOR 4 DAYS aspirin 81 MG chewable tablet Every 24 hours CeleBREX 100 mg, Oral ciprofloxacin (CIPRO) 500 mg, Oral, Every 12 hours citalopram (CELEXA) 20 mg, Oral, Nightly cloNIDine (Catapres) 0.2 MG tablet Every 8 hours diclofenac (Voltaren) 75 MG EC tablet Every 12 hours Effexor XR 150 MG 24 hr capsule Every 24 hours glimepiride (Amaryl) 2 MG tablet Every 24 hours glucosamine-chondroitin 500-400 MG tablet 1 tablet, Oral, 3 times daily hydrALAZINE (Apresoline) 100 MG tablet Every 24 hours metFORMIN (Glucophage) 500 MG tablet Every 12 hours metoprolol succinate XL (Toprol XL) 50 MG 24 hr tablet 2 capsules, Every 12 hours Multiple Vitamins-Minerals (Mens 50+ Advanced) capsule 1 capsule, Every 24 hours [place] 3-6-9 Fatty Acids (Denver 3-6-9 Complex) capsule 1 capsule, Every 12 hours ramipril (Altace) 10 MG capsule 1 capsule, Every 12 hours simvastatin (ZOCOR) 20 mg, Oral, Nightly ALLERGIES: No Known Allergies SURGICAL HISTORY: Past Surgical History: Procedure Laterality Date TOTAL KNEE ARTHROPLASTY Bilateral L-05/28/2022 ; R-09/10/2022 -- TKA JAB FAMILY HISTORY: Family History Problem Relation Name Age of Onset Cancer Father Cancer Other Spouse SOCIAL HISTORY: Social History Tobacco Use Smoking status: Never Smokeless tobacco: Never Substance Use Topics Alcohol use: Defer Comment: Caffein intake: 1-2 cups per day Drug use: Defer Depression: Not on file REVIEW OF SYMPTOMS: Review of Systems The review of systems, history and current medications list are all reviewed today. OBJECTIVE: Visit Vitals Ht 5' 7 Wt 258 lb BMI 40.41 kg/m Smoking Status Never BSA 2.35 m Physical Exam Alert and oriented, no acute distress. Mood and affect are appropriate. Ambulating independently. Gait is nonantalgic. BILATERAL KNEE Incisions benign. No effusion. full extension. Flexion is 120 degrees. Patella tracking appropriately. No varus or valgus instability. 5/5 strength Ortho Exam Results Three views, bilateral PA weight-bearing/sunrise/lateral bilateral knee, taken today and saved to the permanent medical record are reviewed. Prosthesis is unchanged in position and alignment. No signs of prosthetic wear or loosening. No periprosthetic fractures. ASSESSMENT AND PLAN: I reviewed the history, physical exam, diagnostic studies, and diagnosis with the patient. Assessment & Plan 1. Bilateral knee arthroplasty follow-up. The knees are in good condition post-arthroplasty. He was advised to continue using antibiotics prior to dental cleanings unless otherwise instructed. 2. Right shoulder pain. 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 He was recommended to apply ice to his right shoulder for a minimum of 20 minutes before bedtime. If the pain persists or worsens, an x-ray and examination will be considered. Follow up in 2 years with xrays of the knees. A total of 20 to 29 minutes was spent on this patient encounter which included chart review, check in, nurse triage, history taking, physical examination, diagnostic study review, patient counseling and discussion, entering information into the patient's medical record, and coordinating patient care Diagnoses and all orders for this visit: Pain in both knees, unspecified chronicity - XR knee 3 views left - XR knee 3 views right Theodore Jacques D.O. Attestation This note was created using voice recognition through [employer]. documented in this encounter [facility] 09-11-2022 Note Patient: JENNIFER MOORE Age: 62 years Sex: Male : 1960 Associated Diagnoses: None Author: Theodore Jacques DO Discharge Information Discharge Summary Information: Admit Date/Time: 09/10/22 10:26 Discharge Date/Time: 09/11/22 0730 Admitting Physician: Theodore Jacques DO Referring Physician for Admission: Theodore Jacques DO Consulting Physicians: none Admitting Diagnoses: DJD R knee procedure: R TKA discharge disposition: home Discharge Diagnoses: Unilateral primary osteoarthritis, right knee Prescription and Home Meds: acetaminophen-oxycodone (Percocet 5 mg-325 mg oral tablet) See Instructions, 1-2 tab(s) Oral q4hr, 40 tab(s), 0 Refill(s) aspirin (aspirin 81 mg Oral EC Tab) 162 mg, 2 tab(s), Oral, Daily, for 30 day(s), 60 tab(s), 0 Refill(s) celecoxib (CeleBREX 100 mg Cap) 100 mg, 1 cap(s), Oral, BID, PRN: for pain, 60 cap(s), 0 Refill(s) cephalexin (Keflex 500 mg Cap) 500 mg, 1 cap(s), Oral, q8hr, for 7 day(s), 21 cap(s), 0 Refill(s) citalopram (CeleXA 20 mg Tab) 20 mg, 1 tab(s), Oral, Daily, 0 Refill(s) clonidine 0.2 mg, Oral, TID docusate (Colace 100 mg Cap) 100 mg, 1 cap(s), Oral, BID, PRN: for constipation, 20 cap(s), 0 Refill(s) glimepiride (glimepiride 2 mg Tab) 2 mg, 1 tab(s), Oral, Daily hydrALAZINE (hydrALAZINE 100 mg oral tablet) 100 mg, 1 tab(s), Oral, TID metformin (metformin 500 mg Tab) 500 mg, 1 tab(s), Oral, BID, 0 Refill(s) metoprolol (Toprol XL 50 mg Tab-ER) 100 mg, 2 tab(s), Oral, BID, 0 Refill(s) multivitamin (Multi Vitamin+) tab, Oral, Daily, 0 Refill(s) ramipril (Altace 10 mg Cap) 10 mg, 1 cap(s), Oral, BID, 0 Refill(s) simvastatin (simvastatin 20 mg Tab) 20 mg, 1 tab(s), Oral, Once a day (at bedtime), 0 Refill(s) venlafaxine 150 mg, Oral, Daily [facility] Comment on above: Result Comment: Elec tronically Signed By: Theodore Jacques DO\.br\Date and Time Signed: 03/30/23 12:45 EDT 09-11-2022 Evaluation + Plan note Extrac ashly from: Title:Discharge Summary Author:Theodore Jacques DO Date:09/11/22 Discharge Information Discharge Summary Information: Admit Date/Time: 09/10/22 10:26Discharge Date/Time: 09/11/22 0730 Admitting Physician: Theodore Jacques DO Referring Physician for Admission: Theodore Jacques DO Consulting Physicians: none Admitting Diagnoses: DJD R knee procedure: R TKA discharge disposition: home Discharge Diagnoses: Unilateral primary osteoarthritis, right knee Prescription and Home Meds: acetaminophen-oxycodone (Percocet 5 mg-325 mg oral tablet) See Instructions, 1-2 tab(s) Oral q4hr, 40 tab(s), 0 Refill(s) aspirin (aspirin 81 mg Oral EC Tab) 162 mg, 2 tab(s), Oral, Daily, for 30 day(s), 60 tab(s), 0 Refill(s) celecoxib (CeleBREX 100 mg Cap) 100 mg, 1 cap(s), Oral, BID, PRN: for pain, 60 cap(s), 0 Refill(s) cephalexin (Keflex 500 mg Cap) 500 mg, 1 cap(s), Oral, q8hr, for 7 day(s), 21 cap(s), 0 Refill(s) citalopram (CeleXA 20 mg Tab) 20 mg, 1 tab(s), Oral, Daily, 0 Refill(s) clonidine 0.2 mg, Oral, TID docusate (Colace 100 mg Cap) 100 mg, 1 cap(s), Oral, BID, PRN: for constipation, 20 cap(s), 0 Refill(s) glimepiride (glimepiride 2 mg Tab) 2 mg, 1 tab(s), Oral, Daily hydrALAZINE (hydrALAZINE 100 mg oral tablet) 100 mg, 1 tab(s), Oral, TID metformin (metformin 500 mg Tab) 500 mg, 1 tab(s), Oral, BID, 0 Refill(s) metoprolol (Toprol XL 50 mg Tab-ER) 100 mg, 2 tab(s), Oral, BID, 0 Refill(s) multivitamin (Multi Vitamin+) tab, Oral, Daily, 0 Refill(s) ramipril (Altace 10 mg Cap) 10 mg, 1 cap(s), Oral, BID, 0 Refill(s) simvastatin (simvastatin 20 mg Tab) 20 mg, 1 tab(s), Oral, Once a day (at bedtime), 0 Refill(s) venlafaxine 150 mg, Oral, Daily Future Appointments Appointment Date:09/23/2022 08:00:00 AM Scheduled Provider:Jewel Nava Jr., MD Location:[facility] Appointment Type:URO Office Visit [facility]03-29-2023 NotePT evaluation completed with an AM- PAC six clicks score of 20/24. Pt. able to complete bed mobilitywith close supervision. Pt. performs sit<>stand transfers with CGA. Pt. ambulates x 32 ft. within room with FWW, without knee buckling, loss of balance or other safety concerns. Will complete stair negotiation for home entry prior to discharge. Pt. would be functionally safe to return home once medically stable with family assist and ortho 360 to follow.[facility]03-29-2023 Hospital Discharge instructions Patient Education 09/10/2022 13:21:18 Rodo Jacques - Total Knee Arthroplasty (Custom) [place], [place] [facility] DISCHARGE INSTRUCTIONS: TOTAL KNEE ARTHROPLASTY INCISION CARE: The bandage may be changed by your home health care nurse at 10 days postoperatively. A new Mepilexbandage should then be placed. The bandage is waterproof, so you may shower at home. Steri-strips (paper tape strips) may be applied to the incision if any slight wound separation is noted. These should remain in place for five days and then they may come off in the shower. Please notify the office if any increase in redness, tenderness, drainage, fever, or wound separation is noted beyond this point. Compression stockings may be helpful if any significant or uncomfortable swelling in the legs is noted postoperatively. Use and removal instructions should be given by physical therapy. If the swelling is below the knee, knee high compression stockings may suffice. If this does cause swelling into the thigh region, waist high compression stockings may be beneficial as well. These can be obtained from most pharmacies, or can be obtained through Home Health. The mild grade compression stockings are best used initially. When applying or removing the compression stocking, you may need assistance. MEDICATIONS: You may resume your home medications at the time of discharge. Arixtra and Lovenox are mild blood thinners that prevent the development of blood clots in the legs. One of these has been used during your hospitalization. After discharge home you should continue the use of two stomach coated baby Aspirin tablets daily with your largest meal for 30 days after home discharge. Please notify your doctor if you have a stomach sensitivity to Aspirin or history of previous stomach ulcers. Pain medication has been prescribed as well. You may continue to use the pain medication every fourhours as needed. Any narcotic pain medication can cause side effects including stomach upset, constipation, or light-headedness. You should not drive or operate machinery, or drink alcohol while using the narcotic pain medication. You should not use other pain medications with this prescription pain medication unless further directed by your physician. PHYSICAL THERAPY Continue the range of motion and strengthening exercises initiated by Physical Therapy in the hospital. Continue weight bearing, as ordered, to the operated knee for four to six weeks as directed in Physical Therapy, or until your strength is improved and Physical Therapy will then allow you to progress to full weight. This will be with the use of a walker or crutches initially. After four or six weeks you may then progress to the use of one crutch or a cane. A quad-cane is preferred as this is more stable. Physical therapy as begun in the hospital will continue at home, possibly with the assistant chief engineer of Home Health Physical Therapy or in the hospital as an outpatient. When you have become independent withthe physical therapy program, this will then be discontinued as a supervised program and you will be instructed to continue the physical therapy exercises at home. Your exercises are mckinney to successful rehabilitation. You should gain full extension first, hopefully before hospital discharge, and gain 90 degrees flexion by one month post-op. Do the exercises daily, twice if preferred. DRIVING: Please do not drive for 4-6 weeks pending therapy progress. Driving too soon, you are considered animpaired jinriksha driver, and this could be a problem. It is therefore advised not to drive until after yourfirst office visit following surgery. FOLLOW-UP OFFICE VISIT: Theodore A. Brown, DO [facility] [address], [place] [address] Reviewed: Follow Up Care 08/04/2022 16:01:52 With:Theodore Jacques Address: [address] [place] [phone] Business (1) When:09/30/2022 14:30:00 With:Kasia Alicea Address: [address] [place] [address] [place] [address] Business (1) When: Unknown Comments:No PCP appointment required for surgery patient. Please follow up with ORTHO. Thank you! [facility]03-28-2023 Note [id number]:[id number] 07-16-2022 NoteOPERATIVE NOTE OPERATION DATE: 07/16/2022 PREOPERATIVE DIAGNOSIS: Colorectal screening. POSTOPERATIVE DIAGNOSIS: Normal colonoscopy to cecum. SURGEON: Lisa Molina M.D. ANESTHESIA: Monitored anesthesia care. ESTIMATED BLOOD LOSS: Zero. INDICATIONS AND CONSENT: Patient is a 62-year-old male presents for colorectal screening. Indications, risks, benefits, alternatives of proceeding with colonoscopy were explained extensively to the patient, including the risks of bleeding, colon perforation or anesthetic complications. All of his questions were answered. Informed consent was obtained. PROCEDURE: Patient brought to the operating room, placed in the left lateral decubitus position. Monitored anesthesia care was provided. Rectal exam was performed which showed no masses or blood. The scope was inserted into the anal canal. Under direct visualization was advanced. It was advanced to the cecum where cecal markings were clearly identified. There was noted to be a good prep, with some liquid brown stool throughout the colon that was partially irrigated clear. Upon withdrawal of the scope, mucosal surfaces were carefully examined. There were no mass lesions or polyps. No inflammatory changes or ulcerations. No significant diverticulosis. The scope was retroflexed in the anal canal. There was no significant hemorrhoidal disease. Scope was then withdrawn. Patient tolerated procedure well, was sent to recovery room in good condition. CC: Kasia Alicea M.D.[facility] [id number] NoteChief Complaint consultation for screening colonoscopy HPI Staff 62 year old male presents on consultation from Dr. Alicea for screening colonoscopy. Denies abdominal or rectal pain. No rectal bleeding or change in bowel habits. Denies nausea or vomiting. No unexplained weight loss. Never had colonoscopy in the past. No known family history of colon cancer. History of Present Illness 62 yo male with h/o htn, DMII, hyperlipidemia, h/o TIA, referred for colorectal screening; denies change in bms or blood in stools; no abdominal complaints; denies asa or NSAID use, no SBE prophylaxis; no previous colonoscopy or abdominal operations; no fmhx of GI malignancy or IBD; chews tobacco. Review of Systems PHQ Score Initial Depression Screen Score: 0 Physical Exam Vitals & Measurements HR: 72(Peripheral) RR: 16 BP: 162/102 HT: 70 in HT: 177 cm WT: 107 kg WT: 235.4 lb BMI: 34.15 HEENT: normal conjunctiva, sclera clear, no scleral icterus, EOM intact, PERRLA, oral mucosa moist without lesions. Neck: trachea midline, no mass, symmetric, no thyromegaly or nodules, no adenopathy Respiratory: lungs CTA, respirations non labored. Cardiovascular: regular rate and rhythm, no murmur, no pedal edema or varicosities. Gastrointestinal: obese, soft, non distended, no tenderness, no masses, no palpable hernias, diastasis recti no, no hepatosplenomegaly; normal bs Lymphatic: no cervical adenopathy, Musculoskeletal: normal gait, digits and nails without infection, nodes, cyanosis, clubbing. Skin: no rashes, no lesions, no ulcers, no subcutaneous nodules, induration. Psychiatric/Neuro: oriented to time, place, person, judgement normal, affect appropriate for age, insight intact, no focal deficits. Tests: review of old records completed, Discussed surgical options, risks, and possible complications with patient. Assessment/Plan 1. Screening for malignant neoplasm of colon (Z12.11: Encounter for screening for malignant neoplasm of colon) plan colonoscopy under anesthesia, informed consent obtained. Follow-up No qualifying data available Problem List/Past Medical History Ongoing Anxiety and depression Basal cell carcinoma, face BMI 34.0-34.9,adult BPH (benign prostatic hyperplasia) Cataract Chronic cystitis Diabetes History of TIA (transient ischemic attack) HTN (hypertension) Hypertensive retinopathy Lower extremity edema Macular degeneration Sciatica Screening for malignant neoplasm of colon Testosterone deficiency Historical Anxiety BPH with urinary obstruction Dysuria Elevated PSA Frequent urination Hx of mcc use of blood thinners Nocturia Stroke Urinary retention Urinary tract infection Procedure/Surgical History Total knee arthroplasty (05/28/2022), Transrectal biopsy of prostate using ultrasound (US) guidance(07/21/2014). Medications Altace 10 mg Cap, 10 mg= 1 cap(s), Oral, BID aspirin 81 mg Oral EC Tab, 162 mg= 2 tab(s), Oral, Daily CeleXA 20 mg Tab, 20 mg= 1 tab(s), Oral, Daily cloNIDine 0.1 mg tab, 0.2 mg= 2 tab(s), Oral, BID Colace 100 mg Cap, 100 mg= 1 cap(s), Oral, BID, PRN diclofenac sodium 75 mg Oral EC Tab, 75 mg= 1 tab(s), Oral, BID glimepiride 2 mg Tab, 2 mg= 1 tab(s), Oral, Daily glucosamine hydrochloride 1500 mg oral tablet, 1500 mg= 1 tab(s), Oral, BID hydrALAZINE 100 mg oral tablet, 100 mg= 1 tab(s), Oral, BID metformin 500 mg Tab, 500 mg= 1 tab(s), Oral, BID Multi Vitamin+, tab, Oral, Daily Percocet 5 mg-325 mg oral tablet, See Instructions simvastatin 20 mg Tab, 20 mg= 1 tab(s), Oral, Once a day (at bedtime) Toprol XL 50 mg Tab-ER, 100 mg= 2 tab(s), Oral, BID venlafaxine 75 mg Cap-ER, 75 mg= 1 cap(s), Oral, Daily Zofran ODT 4 mg Tab, 4 mg= 1 tab(s), Oral, q8hr, PRN Allergies No Known Allergies Social History Alcohol - Denies Alcohol Use, 03/24/2019 Substance Abuse - Denies Substance Abuse, 05/06/2022 Tobacco - Denies Tobacco Use, 03/24/2019 Never (less than 100 in lifetime) Tobacco Use:. Smokeless tobacco user within last 30 days Smokeless Tobacco Use:. Oral, Started age 25.0 Years. Yes, 06/17/2022 Family History Diabetes mellitus type 2: Mother. Heart disease: Mother and Father. Hypertension: Mother. Primary malignant neoplasm of prostate: Father. Immunizations Vaccine Date Status Comments influenza, unspecified formulation 07/11/2021 Recorded SARSCoV2 mRNA(uwbgleebz-bfht-sbkfoe) vac 07/11/2021 Recorded 2022-06-17: [id number] SARS-CoV-2 (COVID-19) mRNA BNT-162b2 vax 10/29/2020 Recorded SARS-CoV-2 (COVID-19) mRNA BNT-162b2 vax 09/19/2020 RecordedK[facility] Medical CenterComment on above:Result Comment: Electronically Signed By: TRACY ROSSI, Lisa Alan\Date and Time Signed: 06/17/22 15:48 [id number] NotePatient: IRWIN MOORE Age: 62 years Sex: Male : 1960 Associated Diagnoses: None Author: Theodore Jacques DO Discharge Information Discharge Summary Information: Admit Date/Time: 05/28/22 06:18 Discharge Date/Time: 05/29/22 1000 Admitting Physician: Theodore Jacques DO Referring Physician for Admission: Theodore Jacques DO Consulting Physicians: hospitalist Admitting Diagnoses: DJD left knee procedure: L TKA discharge disposition: home Discharge Diagnoses: Unilateral primary osteoarthritis, left knee Anxiety disorder, unspecified Benign prostatic hyperplasia without lower urinary tract symptoms Depression, unspecified Encounter for prophylactic measures, unspecified Prescription and Home Meds: acetaminophen-oxycodone (Percocet 5 mg-325 mg oral tablet) See Instructions, 1-2 tab(s) Oral q4hr, 50 tab(s), 0 Refill(s) aspirin (aspirin 81 mg Oral EC Tab) 162 mg, 2 tab(s), Oral, Daily, for 30 day(s), 60 tab(s), 0 Refill(s) celecoxib (CeleBREX 100 mg Cap) 100 mg, 1 cap(s), Oral, BID, PRN: for pain, 60 cap(s), 0 Refill(s) cephalexin (Keflex 500 mg Cap) 500 mg, 1 cap(s), Oral, q8hr, for 7 day(s), 21 cap(s), 0 Refill(s) citalopram (CeleXA 20 mg Tab) 20 mg, 1 tab(s), Oral, Daily, 0 Refill(s) clonidine (cloNIDine 0.1 mg tab) 0.2 mg, 2 tab(s), Oral, BID, 0 Refill(s) docusate (Colace 100 mg Cap) 100 mg, 1 cap(s), Oral, BID, PRN: for constipation, 20 cap(s), 0 Refill(s) glimepiride (glimepiride 2 mg Tab) 2 mg, 1 tab(s), Oral, Daily glucosamine (glucosamine hydrochloride 1500 mg oral tablet) 1,500 mg, 1 tab(s), Oral, BID, 0 Refill(s) hydrALAZINE (hydrALAZINE 100 mg oral tablet) 100 mg, 1 tab(s), Oral, BID metformin (metformin 500 mg Tab) 500 mg, 1 tab(s), Oral, BID, 0 Refill(s) metoprolol (Toprol XL 50 mg Tab-ER) 100 mg, 2 tab(s), Oral, BID, 0 Refill(s) multivitamin (Multi Vitamin+) tab, Oral, Daily, 0 Refill(s) ondansetron (Zofran ODT 4 mg Tab) 4 mg, 1 tab(s), Oral, q8hr, PRN: Nausea/Vomiting, 30 tab(s), 0 Refill(s) ramipril (Altace 10 mg Cap) 10 mg, 1 cap(s), Oral, BID, 0 Refill(s) simvastatin (simvastatin 20 mg Tab) 20 mg, 1 tab(s), Oral, Once a day (at bedtime), 0 Refill(s) venlafaxine (venlafaxine 75 mg Cap-ER) 75 mg 1 cap(s) Oral Daily, 30 cap(s), Start: 05/29/2022, 0 Refill(s)[facility] CenterComment on above:Result Comment: Electronically Signed By: Theodore Jacques DO\.edison\Date and Time Signed: 05/29/22 13:42 [id number] NotePT Evaluation completed with an AMPAC score of 18/24. Pt was able to perform bed mobility with Mod I and transfers with CGA. Pt was able to ambulate with SBA and perform steps with CGA. Pt would be fu nctionally safe to return home with caregiver assist and Ortho 360 to follow [facility]12-15-2022 Evaluation + Plan noteExtracted from: Title:Discharge Summary Author:Theodore Jacques DO Date:05/29/22 Discharge Information Discharge Summary Information: Admit Date/Time: 05/28/22 06:18Discharge Date/Time: 05/29/22 1000 Admitting Physician: Theodore Jacques DO Referring Physician for Admission: Theodore Jacques DO Consulting Physicians: hospitalist Admitting Diagnoses: DJD left knee procedure: L TKA discharge disposition: home Discharge Diagnoses: Unilateral primary osteoarthritis, left knee Anxiety disorder, unspecified Benign prostatic hyperplasia without lower urinary tract symptoms Depression, unspecified Encounter for prophylactic measures, unspecified Prescription and Home Meds: acetaminophen-oxycodone (Percocet 5 mg-325 mg oral tablet) See Instructions, 1-2 tab(s) Oral q4hr, 50 tab(s), 0 Refill(s) aspirin (aspirin 81 mg Oral EC Tab) 162 mg, 2 tab(s), Oral, Daily, for 30 day(s), 60 tab(s), 0 Refill(s) celecoxib (CeleBREX 100 mg Cap) 100 mg, 1 cap(s), Oral, BID, PRN: for pain, 60 cap(s), 0 Refill(s) cephalexin (Keflex 500 mg Cap) 500 mg, 1 cap(s), Oral, q8hr, for 7 day(s), 21 cap(s), 0 Refill(s) citalopram (CeleXA 20 mg Tab) 20 mg, 1 tab(s), Oral, Daily, 0 Refill(s) clonidine (cloNIDine 0.1 mg tab) 0.2 mg, 2 tab(s), Oral, BID, 0 Refill(s) docusate (Colace 100 mg Cap) 100 mg, 1 cap(s), Oral, BID, PRN: for constipation, 20 cap(s), 0 Refill(s) glimepiride (glimepiride 2 mg Tab) 2 mg, 1 tab(s), Oral, Daily glucosamine (glucosamine hydrochloride 1500 mg oral tablet) 1,500 mg, 1 tab(s), Oral, BID, 0 Refill(s) hydrALAZINE (hydrALAZINE 100 mg oral tablet) 100 mg, 1 tab(s), Oral, BID metformin (metformin 500 mg Tab) 500 mg, 1 tab(s), Oral, BID, 0 Refill(s) metoprolol (Toprol XL 50 mg Tab-ER) 100 mg, 2 tab(s), Oral, BID, 0 Refill(s) multivitamin (Multi Vitamin+) tab, Oral, Daily, 0 Refill(s) ondansetron (Zofran ODT 4 mg Tab) 4 mg, 1 tab(s), Oral, q8hr, PRN: Nausea/Vomiting, 30 tab(s), 0 Refill(s) ramipril (Altace 10 mg Cap) 10 mg, 1 cap(s), Oral, BID, 0 Refill(s) simvastatin (simvastatin 20 mg Tab) 20 mg, 1 tab(s), Oral, Once a day (at bedtime), 0 Refill(s) venlafaxine (venlafaxine 75 mg Cap-ER) 75 mg 1 cap(s) Oral Daily, 30 cap(s), Start: 05/29/2022, 0 Refill(s) Extracted from: Title:Consult Note Author:Gaby ROSSI, Ahmad Guero e:05/29/22 This is a 62-year-old male w ith multiple comorbidities including hypertension, degenerative arthritis of left knee, prediabetes, history of TIA, anxiety and depression and benign prostatic hyperplasia hospitalist group was consulted for hypertension. Assesment/Plan HTN -Baseline not well controlled, reviewed his home meds w/him. Did also received multiple doses of ephedrine intraoperatively w/t1/2 of 6h, will need ~4t1/2 to clear from system. Decreased Effexor from 150 to 75. -continue w/Catapres, lisinopril, metoprolol, hydralazine. -continue to monitor BPs and adjust medications. -Will consider adding Nifedipine -Continue to monitor Degenerative arthritis of left knee S/P TKA -POD # 1 -Per Orthopedic surgery Chronic Medical Conditions Diabetes: Prediabetic, Finger sticks, sliding scale, glimepiride, switched diet to DM History of TIA: Aspirin, Statin Anxiety and Depression: Celexa, Effexor may be contributing to HTN, decreased to 75 BPH: Noted Diet: DM Plan: Plan was discussed with patient and family (if applicable) at bedside Orders: venlafaxine, 75 mg = 1 cap(s), Cap-ER, Oral, Daily, Routine, Start date 05/29/22 9:00:00 EST Diabetic/Calorie Control Diet Extracted from: Title:Consult Note Author:Philip JERNIGAN MD Date :05/28/22 62-year-old male with past m edical history of diabetes, hypertension, obesity, anxiety/depression presented for elective procedure with Dr. Theodore Jacques. Patient is being seen by hospitalist service for blood pressure management. 1. HTN (hypertension) (I10: Essential (primary) hypertension) Patient with hypertensive urgency with facial flushing and uneasy feeling On multiple blood pressure medication with hypertensive retinopathy Continue with clonidine, lisinopril, metoprolol As needed hydralazine One-time dose of IV Vasotec 2. Degenerative arthritis of left knee (M17.12: Unilateral primary osteoarthritis, left knee) Management as per orthopedic surgery Pain control PT OT Postop day #0 3. Diabetes (E11.9: Type 2 diabetes mellitus without complications) Prediabetic as per Last A1c was 5.3 Hold metformin Accu-Chek plus sliding scale as needed Doing the sliding scale due to patient being on glimepiride here 4. History of TIA (transient ischemic attack) (Z86.73: Personal history of transient ischemic attack (TIA), and cerebral infarction without residual deficits) Continue with chronic medication and blood pressure control Simvastatin 5. Anxiety and depression (F41.9: Anxiety disorder, unspecified) Celexa, Effexor 6. BPH (benign prostatic hyperplasia) (N40.0: Benign prostatic hyperplasia without lower urinary tract symptoms) 7. Depression, unspecified (F32.A: Depression, unspecified) Celexa, Effexor 8. DVT prophylaxis (Z29.9: Encounter for prophylactic measures, unspecified) As per orthopedic surgeon Orders: enalapril, 1.25 mg = 1 mL, Soln-IV, IV Push, Once, Stop date 05/28/22 22:08:00 EST, NOW, Start date 05/28/22 22:08:00 EST, 05/28/22 22:08:00 EST hydrALAZINE, 10 mg = 0.5 mL, Injection, IV Push, q6hr PRN Other (see comment), Routine, Start date 05/28/22 21:28:00 EST, for SBP < 160 insulin lispro, 0-10 Units, Injection-Insulin, SubCutaneous, QIDACHS, Routine, Start date 05/29/22 7:30:00 EST Routine Capillary Glucose POC Plan discussed with patient and at bedside in bed #314 Thank you for allowing us to participate in this patient's care. Please call us with any questions This report was transcribed using voice recognition software. Every effort was made to ensure accuracy, however, inadvertently computerized funeral pre arrangement specialist mistakes may be present. Dr. Philip Jernigan Hospitalist at [facility] Future Appointments Appointment Date:06/17/2022 03:20:00 PM Scheduled Provider:Lisa MOLINA MD Location:[facility] Appointment Type:[place] [id number] Appointment Date:09/23/2022 08:00:00 AM Scheduled Provider:Jewel Nava Jr., MD Location:[facility] Appointment Type:URO Office Visit [facility]12-15-2022 NoteChief Complaint Degenerative arthritis of left knee Reason for Consultation HTN History of Present Illness The patient was seen and examined. Informs me that his pressures at home run 150s-160s/80s. Review of Systems He denies any headaches, changes in vision, chest pain, abdominal pain. Physical Exam General: alert, no acute distress Psychiatric: cooperative, affect appropriate for age Neurological: awake, alert, oriented, speech normal Cardiovascular: no overt murmurs Respiratory: no adventitious breath sounds Gastrointestinal: soft NT, NG, NR Extremities: no rash Assessment/Plan This is a 62-year-old male with multiple comorbidities including hypertension, degenerative arthritis of left knee, prediabetes, history of TIA, anxiety and depression and benign prostatic hyperplasia hospitalist group was consulted for hypertension. Assesment/Plan HTN -Baseline not well controlled, reviewed his home meds w/him. Did also received multiple doses of ephedrine intraoperatively w/t1/2 of 6h, will need 4t1/2 to clear from system. Decreased Effexor from 150 to 75. -continue w/Catapres, lisinopril, metoprolol, hydralazine. -continue to monitor BPs and adjust medications. -Will consider adding Nifedipine -Continue to monitor Degenerative arthritis of left knee S/P TKA -POD # 1 -Per Orthopedic surgery Chronic Medical Conditions Diabetes: Prediabetic, Finger sticks, sliding scale, glimepiride, switched diet to DM History of TIA: Aspirin, Statin Anxiety and Depression: Celexa, Effexor may be contributing to HTN, decreased to 75 BPH: Noted Diet: DM Plan: Plan was discussed with patient and family (if applicable) at bedside Orders: venlafaxine, 75 mg = 1 cap(s), Cap-ER, Oral, Daily, Routine, Start date 05/29/22 9:00:00 EST Diabetic/Calorie Control Diet Problem List/Past Medical History Ongoing Anxiety and depression Basal cell carcinoma, face BPH (benign prostatic hyperplasia) Cataract Chronic cystitis Diabetes History of TIA (transient ischemic attack) HTN (hypertension) Hypertensive retinopathy Lower extremity edema Macular degeneration Sciatica Testosterone deficiency Historical Anxiety BPH with urinary obstruction Dysuria Elevated PSA Frequent urination Hx of mcc use of blood thinners Nocturia Stroke Urinary retention Urinary tract infection Procedure/Surgical History Total knee arthroplasty (05/28/2022), Transrectal biopsy of prostate using ultrasound (US) guidance(07/21/2014). Medications Inpatient acetaminophen 325 mg Tab, 975 mg= 3 tab(s), Oral, q6hr cefazolin additive + Sodium Chloride 0.9% intravenous solution 50 mL citalopram 20 mg Tab, 20 mg= 1 tab(s), Oral, Daily cloNIDine 0.1 mg tab, 0.2 mg= 2 tab(s), Oral, BID Colace 100 mg Cap, 100 mg= 1 cap(s), Oral, BID Dulcolax 5 mg Tab-EC, 10 mg= 2 tab(s), Oral, Daily, PRN Effexor XR 75 mg Cap-ER, 75 mg= 1 cap(s), Oral, Daily ferrous sulfate 325 mg Tab, 325 mg= 1 tab(s), Oral, BIDWM glimepiride 2 mg Tab, 2 mg= 1 tab(s), Oral, Daily HumaLOG Sliding Scale, 0-10 Units, SubCutaneous, QIDACHS hydrALAZINE 20 mg/mL Inj, 10 mg= 0.5 mL, IV Push, q6hr, PRN hydrALAZINE 25 mg Tab, 100 mg= 4 tab(s), Oral, BID ketorolac 15 mg/mL Inj, 15 mg= 1 mL, IV Push, q6hr lisinopril 20 mg Tab, 40 mg= 2 tab(s), Oral, Daily Lovenox 40 mg/0.4 mL SC Kelin, 40 mg= 0.4 mL, SubCutaneous, Daily Milk of Magnesia 8% Susp-Oral, 30 mL, Oral, BID, PRN morphine 2 mg/mL Inj, 2 mg= 1 mL, IV, q4hr, PRN Nozin 62% Bottle - POSTOP, 6 drop(s), Nasal, BID oxyCODONE 5 mg Tab, 5 mg= 1 tab(s), Oral, q4hr, PRN oxyCODONE 5 mg Tab, 10 mg= 2 tab(s), Oral, q4hr, PRN Pantoprazole [address] Tab, 40 mg= 1 tab(s), Oral, Daily simvastatin 10 mg Tab, 20 mg= 2 tab(s), Oral, Once a day (at bedtime) Toprol XL 50 mg Tab-ER, 100 mg= 2 tab(s), Oral, BID Vitamin C 500 mg Tab, 500 mg= 1 tab(s), Oral, BIDWM Zofran 4 mg/2 mL Injection, 4 mg= 2 mL, IV Push, q6hr, PRN Home Altace 10 mg Cap, 10 mg= 1 cap(s), Oral, BID aspirin 81 mg oral capsule, 81 mg= 1 cap(s), Oral, Daily aspirin 81 mg Oral EC Tab, 162 mg= 2 tab(s), Oral, Daily CeleBREX 100 mg Cap, 100 mg= 1 cap(s), Oral, BID, PRN CeleXA 20 mg Tab, 20 mg= 1 tab(s), Oral, Daily cloNIDine 0.1 mg tab, 0.2 mg= 2 tab(s), Oral, BID Colace 100 mg Cap, 100 mg= 1 cap(s), Oral, BID, PRN diclofenac sodium 75 mg Oral EC Tab, 75 mg= 1 tab(s), Oral, BID Effexor XR 150 mg Cap-ER, 150 mg= 1 cap(s), Oral, Daily glimepiride 2 mg Tab, 2 mg= 1 tab(s), Oral, Daily glucosamine hydrochloride 1500 mg oral tablet, 1500 mg= 1 tab(s), Oral, BID hydrALAZINE 100 mg oral tablet, 100 mg= 1 tab(s), Oral, BID Keflex 500 mg Cap, 500 mg= 1 cap(s), Oral, q8hr metformin 500 mg Tab, 500 mg= 1 tab(s), Oral, BID Multi Vitamin+, tab, Oral, Daily Percocet 5 mg-325 mg oral tablet, See Instructions simvastatin 20 mg Tab, 20 mg= 1 tab(s), Oral, Once a day (at bedtime) Toprol XL 50 mg Tab-ER, 100 mg= 2 tab(s), Ora (more content not included)... [facility] CenterComment [facility]:Result Comment: Electronically Signed By: Gaby ROSSI, Keaton\.br\Date and Time Signed: 05/29/22 08:35 EST 05-29-2022 NoteReason for Consultation Hypertension management History of Present Illness 62-year-old male with past medical history of diabetes, hypertension, obesity, anxiety/depression presented for elective procedure with Dr. Theodore Jacques. Patient had left knee replacement earlier in the day. He tolerated the procedure well. Throughout the day he was slightly anxious and feeling veryrestless. His blood pressure was running very high throughout the day. He had not taken his Celexa.Hospitalist service was consulted because of blood pressure being greater than 200 with facial flushing. Review of Systems Constitutional: no fever, no chills, no sweats, no weakness Respiratory: no shortness of breath, no cough, no orthopnea, no wheezing Cardiovascular: no chest pain, no palpitations, no edema Additional ROS info: Except as noted in the above Review of Systems and in the History of Present Illness all other systems have been reviewed and are negative or noncontributory. Physical Exam General: alert, no acute distress on Room air ENMT: Patient is warm to touch on the face area along with facial erythema Cardiovascular: regular rate and rhythm, normal peripheral perfusion Respiratory: Lungs CTA, respirations non labored Abdomen: Soft, nontender, without rebound or rigidity, positive bowel sounds Extremities: Left knee dressing clean dry and intact Genitourinary: Deferred Skin: Facial erythema Hematological: No signs of large bruising/ecchymosis or petechiae Neurological: oriented x 4, LOC appropriate for age, CN II-XII intact, motor strength equal & normal bilaterally, sensation equal & normal bilaterally, speech normal Psych: Denies suicidal ideation or homicidal ideation Images XR Knee 1 or 2 Views Left 05/28/22 14:31:02 IMPRESSION: Status post complete left knee replacement. Signed By: Steven Baker MD, V. Assessment/Plan 62-year-old male with past medical history of diabetes, hypertension, obesity, anxiety/depression presented for elective procedure with Dr. Theodore Jacques. Patient is being seen by hospitalist service for blood pressure management. 1. HTN (hypertension) (I10: Essential (primary) hypertension) Patient with hypertensive urgency with facial flushing and uneasy feeling On multiple blood pressure medication with hypertensive retinopathy Continue with clonidine, lisinopril, metoprolol As needed hydralazine One-time dose of IV Vasotec 2. Degenerative arthritis of left knee (M17.12: Unilateral primary osteoarthritis, left knee) Management as per orthopedic surgery Pain control PT OT Postop day #0 3. Diabetes (E11.9: Type 2 diabetes mellitus without complications) Prediabetic as per Last A1c was 5.3 Hold metformin Accu-Chek plus sliding scale as needed Doing the sliding scale due to patient being on glimepiride here 4. History of TIA (transient ischemic attack) (Z86.73: Personal history of transient ischemic attack (TIA), and cerebral infarction without residual deficits) Continue with chronic medication and blood pressure control Simvastatin 5. Anxiety and depression (F41.9: Anxiety disorder, unspecified) Celexa, Effexor 6. BPH (benign prostatic hyperplasia) (N40.0: Benign prostatic hyperplasia without lower urinary tract symptoms) 7. Depression, unspecified (F32.A: Depression, unspecified) Celexa, Effexor 8. DVT prophylaxis (Z29.9: Encounter for prophylactic measures, unspecified) As per orthopedic surgeon Orders: enalapril, 1.25 mg = 1 mL, Soln-IV, IV Push, Once, Stop date 05/28/22 22:08:00 EST, NOW, Start date05/28/22 22:08:00 EST, 05/28/22 22:08:00 EST hydrALAZINE, 10 mg = 0.5 mL, Injection, IV Push, q6hr PRN Other (see comment), Routine, Start date 05/28/22 21:28:00 EST, for SBP < 160 insulin lispro, 0-10 Units, Injection-Insulin, SubCutaneous, QIDACHS, Routine, Start date 05/29/22 7:30:00 EST Routine Capillary Glucose POC Plan discussed with patient and at bedside in bed #314 Thank you for allowing us to participate in this patient's care. Please call us with any questions This report was transcribed using voice recognition software. Every effort was made to ensure accuracy, however, inadvertently computerized funeral pre arrangement specialist mistakes may be present. Dr. Philip Jernigan Hospitalist at [facility] Problem List/Past Medical History Ongoing Anxiety and depression Basal cell carcinoma, face BPH (benign prostatic hyperplasia) Cataract Chronic cystitis Diabetes History of TIA (transient ischemic attack) HTN (hypertension) Hypertensive retinopathy Lower extremity edema Macular degeneration Sciatica Testosterone deficiency Historical Anxiety BPH with urinary obstruction Dysuria Elevated PSA Frequent urination Hx of salvage determiner use of blood thinners Nocturia Stroke Urinary retention Urinary tract infection Procedure/Surgical History Total knee arthroplasty (05/28/2022), Transrectal biopsy of prostate using ult (more content not included)...[facility] CenterComment on above:Result Comment: Electronically Signed By: Philip JERNIGAN MD P\.br\Date and Time Signed: 05/28/22 22:26 [id number] Hospital Discharge instructions Patient Education 05/28/2022 09:41:27 Rodo Jacques - Total Knee Arthroplasty (Custom) [place], [place] [facility] DISCHARGE INSTRUCTIONS: TOTAL KNEE ARTHROPLASTY INCISION CARE: The bandage may be changed by your home health care nurse at 7-10 days postoperatively. A new Aquacel bandage should then be placed. The bandage is waterproof, so you may shower at home. Steri-strips (paper tape strips) may be applied to the incision if any slight wound separation is noted. These should remain in place for five days and then they may come off in the shower. Please notify the office if any increase in redness, tenderness, drainage, fever, or wound separation is noted beyond this point. Compression stockings may be helpful if any significant or uncomfortable swelling in the legs is noted postoperatively. Use and removal instructions should be given by physical therapy. If the swelling is below the knee, knee high compression stockings may suffice. If this does cause swelling into the thigh region, waist high compression stockings may be beneficial as well. These can be obtained from most pharmacies, or can be obtained through Home Health. The mild grade compression stockings are best used initially. When applying or removing the compression stocking, you may need assistance. MEDICATIONS: You may resume your home medications at the time of discharge. Arixtra and Lovenox are mild blood thinners that prevent the development of blood clots in the legs. One of these has been used during your hospitalization. After discharge home you should continue the use of two stomach coated baby Aspirin tablets daily with your largest meal for 30 days after home discharge. Please notify your doctor if you have a stomach sensitivity to Aspirin or history of previous stomach ulcers. Pain medication has been prescribed as well. You may continue to use the pain medication every fourhours as needed. Any narcotic pain medication can cause side effects including stomach upset, constipation, or light-headedness. You should not drive or operate machinery, or drink alcohol while using the narcotic pain medication. You should not use other pain medications with this prescription pain medication unless further directed by your physician. PHYSICAL THERAPY Continue the range of motion and strengthening exercises initiated by Physical Therapy in the hospital. Continue weight bearing, as ordered, to the operated knee for four to six weeks as directed in Physical Therapy, or until your strength is improved and Physical Therapy will then allow you to progress to full weight. This will be with the use of a walker or crutches initially. After four or six weeks you may then progress to the use of one crutch or a cane. A quad-cane is preferred as this is more stable. Physical therapy as begun in the hospital will continue at home, possibly with the assistant chief engineer of Home Health Physical Therapy or in the hospital as an outpatient. When you have become independent withthe physical therapy program, this will then be discontinued as a supervised program and you will be instructed to continue the physical therapy exercises at home. Your exercises are mckinney to successful rehabilitation. You should gain full extension first, hopefully before hospital discharge, and gain 90 degrees flexion by one month post-op. Do the exercises daily, twice if preferred. DRIVING: Please do not drive for 4-6 weeks pending therapy progress. Driving too soon, you are considered animpaired jinriksha driver, and this could be a problem. It is therefore advised not to drive until after yourfirst office visit following surgery. FOLLOW-UP OFFICE VISIT: Theodore Jacques, DO [facility] [address] [place] [id number] Reviewed: Follow Up Care 02/06/2022 09:22:18 With:Kasia Alicea Address: [address] [place] [address] [place] [address] Business (1) When: Unknown With:Theodore Jacques Address: [address] [place] [id number] Business (1) When:06/12/2022 15:15:00 [facility]12-13-2022 Note [id number]:127[facility] 11-17-[facility] Hospital Discharge instructions* Instructions* Comfort Mclaughlin MD - 11/17/2021 Repeat your kidney test/BMP next week [facility] Work Phone: evaluation + Plan note Future Appointments Appointment Date:05/13/2022 02:20:00 PM Scheduled Provider:Lisa MOLINA MD Location:[facility] Appointment Type:[facility] Appointment Date:05/28/2022 10:30:00 AM Scheduled Provider: Location:[facility] Appointment Type:Surgery FT Appointment Date:07/01/2022 09:45:00 AM Scheduled Provider:Jewel Nava Jr., MD Location:[facility] Appointment Type[facility]URO [facility] Future Appointments Appointment Date:09/23/2022 08:00:00 AM Scheduled Provider:Jewel Nava Jr., MD Location:[facility] Appointment Type:URO Office Visit General Surgery [place] Evaluation + Plan note Future Appointments Appointment Date:09/10/2022 01:30:00 PM Scheduled Provider: Location:[facility] Appointment Type:Surgery FT Appointment Date:09/23/2022 08:00:00 AM Scheduled Provider:Jewel Nava Jr., MD Location:[facility] Appointment Type:URO [facility] Diagnosis Acute cystitis with hematuria- Primary Acute cystitis Pneumonia of left lower lobe due to infectious organism History of COVID-19 [facility] encounter [facility]* Diagnosis Gastroenteritis- Primary Other and unspecified noninfectious gastroenteritis and colitis Acute renal insufficiency Unspecified disorder of kidney and ureter documented in this encounter [facility] GUND[facility] [employer] Phone: evaluation note* Diagnosis Pain in both knees, unspecified chronicity- Primary [facility] N[facility] No data available for this section [facility]* Instructions* Jayden Anderson MD - 10/02/2020 Use your pulse ox at home to monitor her oxygen levels, [id number] product such as Mucinex DMmay help with some of your symptoms, stay well-hydrated with water and/or nonsugar sports drinks, will start you on an antibiotic to cover both possible early pneumonia as well as urinary tract infection, close follow- up with your established primary care, return to ER if symptoms change worsen or other concerns * Attachments The following attachments cannot be sent through Care Everywhere. * UTI (Urinary Tract Infection): Male (Grenadian) * Pneumonia (G[place]) * Coronavirus Disease (COVID-19): General Info ([place]) documented [facility] Phone: Hospital Discharge instructions No data available for this section [facility] No data available for this section [facility] Summary Purpose Family History No Family History Records FoundNo Family History Records FoundNo Family History Records Found Advance Directives No Advanced Directives Records FoundNo Advanced Directives Records FoundNo Advanced Directives Records Found Additional Source Comments Reason for Visit (unrecogniz ed section and content) Reason Comments Positive For Covid-19 positive COVID res ults on September 27 - states he has been sweating a lot and feeling light headed and dizzy- son also states pt is slightly disoriented at times Dizziness Reason Comments Emesis Pt c/o vomiting, acosta rrhea, and abdominal pain since Thursday night. Has not been able to keep anything down since early Thursday morning. Diarrhea Abdominal Pain Reason Comments Pain Ordered Prescriptions (unrec ognized section and content) Prescription Sig Dispensed Refills Start Date End Da te levoFLOXacin (LEVAQUIN) 500 MG tablet Take 1 tablet by mouth daily for 10 days 10 tablet 0 10/02/2020 10/12/2020 Prescription Sig Dispensed Refills Start Date End Da te diphenoxylate-atropine (LOMOTIL) 2.5-0.025 MG per tabletIndications:Gastro enteritis,Acute renal insufficiency Take 1 tablet by mouth 3 times daily as needed for Diarrhea for up to 5 days. 15 tablet 0 11/17/2021 11/22/2021 ondansetron (ZOFRAN) 4 MG tablet Take 1 tablet by mouth every 8 hours as needed for Nausea or Vomiting 12 tablet 0 11/17/2021 11/22/2021 (unrecognized sect ion and content) No Status Records FoundNo Status Records FoundNo Status Records Found INFORMATION SOURCE (unrecogn ized section and content) DATE CREATED AUTHOR 11/17/2021 Caridad arvizu DATE CREATED AUTHOR AUTHOR'S ORGANIZ ATION 09/17/2022 [facility] DATE CREATED AUTHOR AUTHOR'S ORGANIZ ATION 10/11/2022 [facility] Scheduled Active and Recently Administ ered Medications (unrecognized section and content) Medication Order 11/15/2021 11/16/2021 11/17/2021 0.9 % sodium chloride bolus (COMPLETED) 1,000 mL, IntraVENous, at 1,000 mL/hr, Administer over 1 Hours, ONCE, On 11/17/21 at 1445, For 1 dose 1501 (New Bag - Prov ider: Madison Moore, EDUARDO)1610 (Stopped - Provider: Madison Moore RN) 0.9 % sodium chloride bolus (COMPLETED) 1,000 mL, IntraVENous, at 1,000 mL/hr, Administer over 1 Hours, ONCE, On 11/17/21 at 1600, For 1 dose 1610 (New Bag - Prov ider: Madison Moore, EDUARDO)1715 (Stopped - Provider: Madison Moore, EDUARDO) diphenoxylate-atropine (LOMOTIL) 2.5-0.025 MG per tablet 1 tablet (COMPLETED) 1 tablet, Oral, ONCE, 1 dose, On 11/17/21 at 1445 1503 (Given - Provid er: Madison Moore RN) famotidine (PEPCID) 20 mg in sodium chloride (PF) 10 mL injection (COMPLETED) 20 mg, IntraVENous, ONCE, 1 dose, On 11/17/21 at 1445, IV Push over minimum of 2 minutes - Dilute with 10 mL NS 1502 (Given - Provid er: Madison Moore RN) ondansetron (ZOFRAN) injection 4 mg (COMPLETED) 4 mg, IntraVENous, ONCE, 1 dose, On 11/17/21 at 1445 1502 (Given - Provid er: Madison Moore RN) Care Teams (unrecognized sec tion and content) Mechanic Relationship Specialty Start Date End Date Kasia Alicea MD [address] [place] [id number] PCP - General Family Medicine 10/02/20 Mechanic Relationship Specialty Start Date End Date Kasia Alicea MD [address] [place] [phone] PCP - General Family Medicine 02/26/23 FOR RECORDS PERTAINING TO PATIENTS WHO ARE OR HAVE BEEN ENROLLED IN A CHEMICAL DEPENDENCY/SUBSTANCEABUSE PROGRAM, SOME INFORMATION MAY BE OMITTED. This clinical summary was aggregated from multiple sources. Caution should be exercised in using it in the provision of clinical care. This summary normalizes information from multiple sources, and as a consequence, information in this document may materially change the coding, format and clinical context of patient data. In addition, data may be omitted in some cases. CLINICAL DECISIONS SHOULD BE BASED ON THE PRIMARY CLINICAL RECORDS. [facility] [facility]. provides no warranty or guarantee of the accuracy or completeness of information in this document.
[2025-02-06 08:13] LABS: Hematocrit 39.6 % (42.0-54.0); Hemoglobin 12.9 g/dL (14.0-18.0); Immature Granulocytes Abs Auto 0.01 10^3/uL (0.00-0.03); Immature Granulocytes Pct Auto 0.2 % (0.0-0.5); Lymphocytes Absolute Auto 1.2 10^3/uL (1.2-3.8); Mean Corpuscular HGB Conc 32.6 g/dL (29.9-35.2); Mean Corpuscular Hemoglobin 29.3 pg (25.9-34.0); Mean Corpuscular Volume 89.8 fL (80.0-94.0); Platelet Count 170 10^3/uL (150-450); Red Blood Count 4.41 10^6/uL (4.70-6.10); White Blood Count 5.6 10^3/uL (4.0-11.0)
[2025-02-06 09:49] LABS: Alanine Aminotransferase 36 U/L (16-63); Albumin Globulin Ratio 1.1; Albumin Level 3.6 g/dL (3.4-5.0); Alkaline Phosphatase 72 U/L (46-116); Anion Gap 10.5; Aspartate Amino Transferase 22 U/L (15-37); Blood Urea Nitrogen 21.0 mg/dL (7.0-18.0); Calcium 8.7 mg/dL (8.5-10.1); Carbon Dioxide 33.6 mmol/L (21.0-32.0); Chloride 106 mmol/L (98-107); Cholesterol 112 mg/dL (<=200); Estimated GFR (African America >60 (>=60 mL/min/1.73m^2); Estimated GFR (Non-African Ame >60 (>=60 mL/min/1.73m^2); Free T3 1.41 pg/mL (2.18-3.98); Globulin 3.4 g/dL; Glucose 131 mg/dL (74-106); HDL Cholesterol 47 mg/dL (40-60); Potassium 4.1 mmol/L (3.5-5.1); Sodium 146 mmol/L (136-145); Thyroid Stimulating Hormone 2.152 uIU/mL (0.358-3.740); Total Protein 7.0 g/dL (6.4-8.2); Triglycerides 58 mg/dL (<=150); VLDL CHOLESTEROL 11.6 mg/dL
== END 2025-02-06 07:40 | disposition home or self-care (01) ==
LOC: LAB 07:40
PROVIDERS: PCP Family Medicine; Visit Provider Family Medicine
DX: Z00.00 Encounter for general adult medical examination without abnormal findings (principal); I10 Essential (primary) hypertension; N40.0 Benign prostatic hyperplasia without lower urinary tract symptoms; E11.9 Type 2 diabetes mellitus without complications
CPT/HCPCS: 36415; 80053; 80061; 83036; 84436; 84443; 84481; 85025; G0103